=== PATIENT | female | born 1995 | race Caucasian/White ===

== ENCOUNTER 2019-12-27 13:40 | Emergency (ER) | payer OTHER, SELFPAY ==
--- NOTE | 2019-12-27 | US_ITS ---
EXAMINATION: US PELVIS CLINICAL INFORMATION: Pelvic pain. COMPARISON: Multiple prior ultrasounds. TECHNIQUE: Both transabdominal and endovaginal scanning was performed. FINDINGS: An anteverted uterus is present measuring 9.6 x 5.0 x 5.4 cm. The uterus appears to be septate with 2 separate endometrial cavities at least near the fundus. Endometrial thickness is normal at 1.5 mm. No uterine masses are seen. The right ovary measures 3.7 x 2.6 x 2.6 cm for a volume of 13 mL demonstrates peripheral follicles. Left ovary measures 3.8 x 1.9 x 2.7 cm for a volume of 10 mL and also demonstrates peripheral follicles. No free intraperitoneal fluid is present. IMPRESSION: No significant abnormality is seen. The uterus appears septate. Peripheral follicles are noted in the ovaries.
[2019-12-27 14:55] VITALS: BP 146/93; PULSE 83; RESP 12; TEMP 36.6; O2SAT 99; BMI 38.2
--- NOTE | 2019-12-27 15:10 | ED_ITS ---
HPI - Female Genitourinary General Chief complaint: Vaginal Bleeding Stated complaint: vaginal bleeding clots Time Seen by Provider: 12/27/19 15:10 Source: patient Mode of arrival: ambulatory Limitations: no limitations History of Present Illness HPI Narrative: noted a headache one week ago since then persistent and will not go away, yesterday had a heavy period with clots she is on nexplanon - denies bleeding issues, she is irregular due to the nexplanon but states she normally only bleeds brown colored blood elicited complaint: vaginal bleeding Pertinent past history: other (had implanon placed in october) Onset (ago): day(s) (yesterday) Location of symptoms: suprapubic Severity: severe Female Urogenital Radiation: Non-Radiating Quality of pain: cramping Consistency: constant Vaginal bleeding: heavy, clots and # pads per day (6 or 7 today) Exacerbating factors: none Relieving factors: none Associated symptoms: headaches (has had a persistent headache for 1 week worsening bilateral temporal and gradual in onset) Treatment prior to arrival: none Patient : No Related Data Allergies Allergy/AdvReac Type Severity Reaction Status Date / Time No Known Allergies Allergy Verified 12/27/19 13:42 Review of Systems Review of Systems: Constitutional : No Fever, No Chills ENT/Mouth : No sore throat, No Rhinorrhea Eyes: No Eye Pain, No Redness Cardiovascular : No Chest Pain, No SOB Respiratory : No Cough, No Sputum, No Wheezing Gastrointestinal : positive Nausea, No Vomiting, No Diarrhea, positive abdominal pain, Genitourinary : positive irregular bleeding, No Dysuria, No Urinary Frequency, positive pelvic pain Musculoskeletal : No Myalgias Skin : No rash Neuro : No Weakness, positiveHeadache Psych : No Anxiety/Panic, No Depression Heme/Lymph: No bruising, No Lymphadenopathy Endocrine : No Polyuria, No Polydipsia All other systems reviewed and are negative [facility] Past Medical History Medical History Asthma Bronchitis delivery delivered Headache Vertigo Social History Social History Smoking Status: Never smoker Use of substances other than those prescribed or required for medical reasons: No Advance Directives: No Advance Directives Information Provided: Yes Physical Exam Vital Signs and I&O and Narrative: Vital Signs and I&O: Vital Signs Temp 98 F 12/27/19 14:55 Pulse 83 12/27/19 14:55 Resp 12 12/27/19 14:55 BP 146/93 H 12/27/19 14:55 Pulse Ox 99 12/27/19 14:55 Intake & Output 12/26/19 12/27/19 12/27/19 18:59 06:59 18:59 Weight 104.355 kg Body Mass Index 38.2 Appearance: Alert. Oriented X3. No acute distress. Eyes: Pupils equal, round and reactive to light. ENT: Pharynx normal. Neck: Normal inspection. Neck supple. no meningeal signs CVS: Normal heart rate and rhythm. Pulses normal. Respiratory: No respiratory distress. Breath sounds normal. Abdomen: Soft and mild suprapubic tenderness. Skin: Skin warm and dry. Normal skin color. Normal skin turgor. Extremities: No lower extremity edema. No lower extremity edema. Neuro: Oriented X 3. No motor deficit. No sensory deficit. Course Course Course Narrative: signed out to Dr. Khan pending workup MDM - Female Genitourinary MDM Narrative Medical decision making narrative: patient with two complaints - gradual onset headache afebrile no meningeal signs gradual onset, not toxic, no fevers doubt SAH/infection, also c/o heavy menses which is unusual for her has implanon in - could be related to new device no prior bleeding issues, will need labs, US to r/o mass/fibroid/cyst, IVF and IV toradol for pain, dispo per results and findings Lab Data Result diagrams: 12/27/19 15:34 Labs: Lab Results 12/27/19 12/27/19 Range/Units 15:34 15:34 WBC 8.1 (4.8-10.8) X10*3/uL RBC 4.40 (4.20-5.50) X10*6/uL Hgb 13.1 (12.0-16.0) g/dl Hct 39.0 (37-47) % MCV 88.6 (80-98) fL MCH 29.8 (27.0-33.0) pg MCHC 33.6 (31.0-35.0) g/dl RDW 12.5 (11.0-16.0) % Plt Count 246 (160-400) X10*3/uL MPV 10.6 (9.4-12.3) fL Immature Gran % (Auto) 0.2 (0.0-0.4) % Neut % (Auto) 65.1 (45-73) % Lymph % (Auto) 29.6 (20-40) % Levy % (Auto) 4.0 (2-11) % Eos % (Auto) 0.7 (0-4) % Baso % (Auto) 0.4 (0-2) % Neut # (Auto) 5.2 (2.0-8.3) X10*3/uL Lymph # (Auto) 2.4 (1.2-4.9) X10*3/uL Levy # (Auto) 0.3 (0.1-1.2) X10*3/uL Eos # (Auto) 0.1 (0.0-0.4) X10*3/uL Baso # (Auto) 0.0 (0.0-0.2) X10*3/uL Abs Immat Gran (auto) 0.02 (0.00-0.03) X10*3/uL Absolute Nucleated RBC 0.000 (0.0-0.012) X10*3/uL Nucleated RBC % (auto) 0.0 (0.0-0.2) /100WBC PT 14.3 H (10.8-13.0) SEC INR 1.2 H (0.9-1.1) APTT 33.6 (24.1-38.0) SEC Discharge Plan Discharge Clinical Impression: Vaginal bleeding
[2019-12-27 15:39] LABS: MANUAL DIFF FLAG NO
[2019-12-27 15:48] LABS: Basophils Percent Auto 0.4 % (0-2); Eosinophils Absolute Auto 0.1 X10*3/uL (0.0-0.4); Eosinophils Percent Auto 0.7 % (0-4); Hemoglobin 13.1 g/dl (12.0-16.0); Imm Gran Abs Auto 0.02 X10*3/uL (0.00-0.03); Imm Gran Pct Auto 0.2 % (0.0-0.4); Lymphocytes Absolute Auto 2.4 X10*3/uL (1.2-4.9); Lymphocytes Percent Auto 29.6 % (20-40); Mean Corpuscular HGB Conc 33.6 g/dl (31.0-35.0); Mean Corpuscular Hemoglobin 29.8 pg (27.0-33.0); Mean Corpuscular Volume 88.6 fL (80-98); Mean Platelet Volume 10.6 fL (9.4-12.3); Monocytes Absolute Auto 0.3 X10*3/uL (0.1-1.2); Neutrophils Absolute Auto 5.2 X10*3/uL (2.0-8.3); Neutrophils Percent Auto 65.1 % (45-73); Platelet Count 246 X10*3/uL (160-400); Red Cell Distribution Width 12.5 % (11.0-16.0); White Blood Count 8.1 X10*3/uL (4.8-10.8)
[2019-12-27 15:50] LABS: INTERNATIONAL NORM RATIO 1.2 (0.9-1.1); Prothrombin Time 14.3 SEC (10.8-13.0)
[2019-12-27] MEDS: ondansetron HCL 4 MG/2 ML VIAL IVPUSH (15:52)
[2019-12-27] MEDS: Ketorolac Tromethamine 15 MG/ML VIAL 30 MG IV (15:52)
[2019-12-27] MEDS: 0.9 % Sodium Chloride 1,000 ML 999 ML IVCONT (15:52)
[2019-12-27 15:53] LABS: Partial Thromboplastin Time 33.6 SEC (24.1-38.0)
[2019-12-27 16:17] LABS: Alanine Aminotransferase 18 U/L (0-31); Albumin Level 4.5 g/dL (3.5-5.0); Alkaline Phosphatase 74 U/L (39-117); Anion Gap 12 (12-20); Aspartate Amino Transferase 17 U/L (5-31); Bilirubin Direct 0.2 mg/dL (0.0-0.5); Bilirubin Total 0.4 mg/dL (0.0-1.0); Blood Urea Nitrogen 11 mg/dL (9-16); Calcium 9.1 mg/dL (8.4-10.2); Carbon Dioxide 23 mmol/L (22-29); Chloride 108 mmol/L (96-108); Creatinine Clr Calc Pharmacy 125.7; Estimated Glomerular Filt Rate > 60; Glucose Random 81 mg/dL (60-115); Lipase 17 U/L (8-78); Sodium 139 mmol/L (135-145); Total Protein 7.2 g/dL (6.5-8.0)
[2019-12-27 16:22] LABS: HCG Quantitative < 2 mIU/mL
[2019-12-27 17:24] VITALS: BP 123/73; PULSE 73; RESP 18; TEMP 36.9; O2SAT 99
== END 2019-12-27 18:59 | disposition home or self-care (01) ==
PROVIDERS: Emergency Medicine; Emergency Provider Emergency Medicine; PCP Internal Medicine
DX: N93.9 Abnormal uterine and vaginal bleeding, unspecified (principal); R10.30 Lower abdominal pain, unspecified
CPT/HCPCS: 36415; 76830; 76856; 80048; 80076; 83690; 83735; 84702; 85025; 85610; 85730; 96361; 96374; 96375; 99284; J1885; J2405

== ENCOUNTER 2020-01-17 15:13 | Outpatient (REF) | payer OTHER, SELFPAY ==
[2020-01-18 02:27] LABS: CT PCR NOT DETECTED (Not Detect.); NG PCR NOT DETECTED (Not Detect.)
== END 2020-01-17 15:14 | disposition home or self-care (01) ==
LOC: HO.LAB 15:13
PROVIDERS: Visit Provider Advanced Practice Midwife
DX: Z01.419 Encounter for gynecological examination (general) (routine) without abnormal findings (principal); Z30.46 Encounter for surveillance of implantable subdermal contraceptive; Z11.3 Encounter for screening for infections with a predominantly sexual mode of transmission; E66.9 Obesity, unspecified; E28.2 Polycystic ovarian syndrome; L68.0 Hirsutism; L56.9 Acute skin change due to ultraviolet radiation, unspecified; L73.9 Follicular disorder, unspecified
CPT/HCPCS: 87491; 87591

== ENCOUNTER 2020-02-19 15:19 | Emergency (ER) | payer OTHER, SELFPAY ==
[2020-02-19 15:53] VITALS: BP 143/84; PULSE 71; RESP 16; TEMP 36.6; O2SAT 99; BMI 38.2
[2020-02-19] MEDS: Fluorescein Sodium STRIP 1 STRIP EYE-LEFT (17:04)
--- NOTE | 2020-02-19 17:04 | ED.EYEPROB ---
HPI - Eye Problem General Chief complaint: Eye Problems Stated complaint: glue in eye Time Seen by Provider: 02/19/20 16:30 Source: patient Mode of arrival: ambulatory Limitations: no limitations History of Present Illness HPI Narrative: States she was opening a small nail glue at home yesterday as she was opening a cap is slightly forceful and as she opened it a small amount splashed into the left eye. States she washed out and felt irritated. And afterwards felt like she got something in the left eye. She denies any visual problems no redness or swelling. MD chief complaint: eye pain and foreign body Onset (ago): day(s) Onset description: gradual Duration: intermittent Location: left eye Eye Symptoms: foreign body sensation Place: home Mechanism: none and chemical exposure Severity: mild If Pain, Quality: aching Associated symptoms: none Treatments Prior to Arrival: irrigated eye Related Data Home Medications Medication Instructions Recorded Confirmed albuterol sulfate 90 mcg/actuation 2 puff INHALATION Q6H PRN 01/02/20 aerosol inhaler etonogestrel 68 mg subdermal SUBDERMAL 01/02/20 implant metformin 500 mg tablet 500 mg PO DAILY 01/02/20 Previous Rx's Medication Instructions Recorded cholecalciferol (vitamin D3) 50 50 mcg PO DAILY #60 cap 01/17/20 mcg (2,000 unit) capsule erythromycin 0.5 inch OPHTHALMIC (EYE) TID 7 02/19/20 Days #3.5 g Allergies Allergy/AdvReac Type Severity Reaction Status Date / Time No Known Allergies Allergy Verified 01/17/20 16:01 Review of Systems Review of Systems: Constitutional: No Weight loss, No Fever, No Chills, No Night Sweats, No Fatigue, No Malaise ENT/Mouth: No Hearing loss, No Ear Pain, No Nasal Congestion, No Sinus Pain, No Hoarseness, No sore throat, No Rhinorrhea, No Swallowing Difficulty Eyes: No Swelling, No Redness, No Discharge, No Vision Changes Cardiovascular: No Chest Pain, No SOB, No Dyspnea on Exertion, No Orthopnea, No Edema, No Palpitations Respiratory: No Cough, No Sputum, No Wheezing, No Smoke Exposure, No Dyspnea Skin: No Skin Lesions, No rash Neuro: No Weakness, No Numbness, No Paresthesias, No Loss of Consciousness, No Dizziness, No Headache Heme/Lymph: No Bruising, No Bleeding,No Lymphadenopathy Endocrine: No Polyuria, No Polydipsia, No Temperature Intolerance Yes all other systems are reviewed and are negative [facility] Past Medical History Medical History (Updated 02/19/20 @ 17:14 by Yash Dunaway NP) Asthma Bronchitis delivery delivered Headache Obesity PCOS (polycystic ovarian syndrome) Vertigo Surgical History History of Family History Family History (Updated 01/02/20 @ 12:06 by BRET Casas) Father No problems noted. Mother Asthma Family/Other Asthma Maternal Grandmother Breast cancer Social History Social History (Updated 01/17/20 @ 16:02 by Gilda Garcia) Alcohol intake: never Smoking Status: Never smoker Advance Directives: No Advance Directives Information Provided: Yes Gender identity: female Physical Exam Vital Signs: Vital Signs: Last Vital Signs Temp 98 F 02/19/20 15:53 Pulse 71 02/19/20 15:53 Resp 16 02/19/20 15:53 BP 143/84 H 02/19/20 15:53 Pulse Ox 99 02/19/20 15:53 Body Mass Index 38.2 Reviewed Const: General: cooperative, healthy appearing, comfortable, no acute distress, well developed, alert and awake HENMT: Head: Yes normal to inspection Ears: hearing grossly normal bilaterally Eyes: General: appearance normal, both eyes and all related structures Visual Renae: normal visual renae by confrontation Eyelids: Yes eyelids normal Conjunctivae: conjunctivae normal Sclerae: sclerae normal Corneas: corneas normal EOM: EOMs intact bilaterally Direct Ophthalmoscopy: normal light reflex and No no papilledema Eyes/upper lids images: 1. PH 7 Intra-ocular pressure 18 Visual acuity equal bilaterally 20/30 No fluorescein uptake Bilateral lid exam within normal limits No erythema No injected conjunctiva Chest: Chest palpation & inspection: normal inspection of the chest and normal palpation of entire chest wall Resp: Effort & Inspection: normal respiratory effort, no audible wheezes, no cough and no respiratory distress Skin: General skin exam: no rashes or lesions noted, elasticity normal and turgor normal Wounds: no wounds Nails: normal Neuro: General: normal sensation to monofilament Extrem: General: No cyanosis Psych: Appearance: grossly normal and well kempt Discharge Plan Discharge Clinical Impression: Acute left eye pain Patient Disposition: Home, Self-Care Instructions: Eye Pain (ED) Prescriptions: New erythromycin 5 mg/gram (0.5 %) ointment 0.5 inch ophthalmic (eye) TID 7 Days Qty: 3.5 RF: 0 No Action cholecalciferol (vitamin D3) 50 mcg (2,000 unit) capsule 50 mcg PO DAILY Qty: 60 RF: 6 Referrals: Vitaly Okeefe [Physician] - 1 day
[2020-02-19] MEDS: Tetracaine HCl/PF 0.5% Oph Sol 4 ML DROPS 1 DROP EYE-LEFT (17:05)
== END 2020-02-19 17:58 | disposition home or self-care (01) ==
PROVIDERS: Emergency Provider Emergency Medicine Emergency Medical Services; PCP Internal Medicine
DX: H57.12 Ocular pain, left eye (principal); Z79.899 Other long term (current) drug therapy
CPT/HCPCS: 99283

== ENCOUNTER 2020-03-01 10:10 | Outpatient (REF) | payer OTHER, SELFPAY | END 2020-03-01 10:11 | disposition home or self-care (01) | LOC: HO.LAB 10:10 | PROVIDERS: Visit Provider Internal Medicine | DX: Z20.828 Contact with and (suspected) exposure to other viral communicable diseases (principal) | CPT/HCPCS: C9803; U0003 ==

== ENCOUNTER 2020-03-01 22:13 | Emergency (ER) | payer OTHER, SELFPAY ==
[2020-03-01 22:14] VITALS: BP 139/88; PULSE 82; RESP 16; TEMP 35.9; BMI 38.2
--- NOTE | 2020-03-01 22:27 | XR_ITS ---
EXAMINATION: XR CHEST CLINICAL INFORMATION: Question COVID Infection. COMPARISON: 03/21/2016 TECHNIQUE: AP portable upright view of the chest FINDINGS: Lungs are clear. No consolidation, pneumothorax, or pleural effusion. Cardiac and mediastinal contours are normal. Pulmonary vasculature is unremarkable. Osseous structures are unremarkable. XR/XR chest 1V IMPRESSION: No acute cardiopulmonary findings
[2020-03-01 22:34] VITALS: PULSE 76; RESP 16; O2SAT 99
--- NOTE | 2020-03-01 22:47 | ED.URI ---
HPI - URI/Sore Throat General Chief Complaint: Upper Respiratory Symptoms Stated Complaint: FLu like symptoms Time Seen by Provider: 03/01/20 22:27 Source: patient Mode of arrival: ambulatory Limitations: no limitations History of Present Illness HPI Narrative: Patient has history of asthma been feeling weak short of breath since yesterday tested for COVID today but result is pending no fever . Dry cough present no other family member is sick with COVID but she works in [employer] Related Data Home Medications Medication Instructions Recorded Confirmed albuterol sulfate 90 mcg/actuation 2 puff INHALATION Q6H PRN 01/02/20 aerosol inhaler etonogestrel 68 mg subdermal SUBDERMAL 01/02/20 implant metformin 500 mg tablet 500 mg PO DAILY 01/02/20 Previous Rx's Medication Instructions Recorded cholecalciferol (vitamin D3) 50 50 mcg PO DAILY #60 cap 01/17/20 mcg (2,000 unit) capsule erythromycin 0.5 inch OPHTHALMIC (EYE) TID 7 02/19/20 Days #3.5 g dexamethasone [Decadron] 6 mg PO DAILY #7 tab 03/01/20 Allergies Allergy/AdvReac Type Severity Reaction Status Date / Time No Known Allergies Allergy Verified 01/17/20 16:01 Review of Systems Review of Systems: REVIEW OF SYSTEMS: Pertinent positives and negatives are stated above in the history. GEN: no fevers, chills, fatigue HEENT: no nasal congestion, sore throat, ear pain NEURO: no headache, dizziness, focal weakness PULM: Cough/shortness of breath present CV: no chest pain, palpitations, LE edema ABD: no abdominal pain, nausea, vomiting, diarrhea : no dysuria, urgency, frequency SKIN: no rash ROS otherwise negative x 10 PMFSH Past Medical History Medical History Asthma Bronchitis delivery delivered Headache HTN (hypertension) Obesity PCOS (polycystic ovarian syndrome) Vertigo Surgical History History of Family History Family History Father No problems noted. Mother Asthma Family/Other Asthma Maternal Grandmother Breast cancer Social History Social History Alcohol intake: never Smoking Status: Never smoker Advance Directives: No Advance Directives Information Provided: No Gender identity: female Physical Exam Vital Signs: Vital Signs: Last Vital Signs Temp 96.6 F L 03/01/20 22:14 Pulse 76 03/01/20 22:34 Resp 16 03/01/20 22:34 BP 139/88 03/01/20 22:14 Pulse Ox 99 03/01/20 22:34 Body Mass Index 38.2 Appearance: Alert. Oriented X3. No acute distress. Saturating 99% at room air Eyes: Pupils equal, round and reactive to light. ENT: Pharynx normal. Neck: Normal inspection. Neck supple. CVS: Normal heart rate and rhythm. Pulses normal. Respiratory: No respiratory distress. Breath sounds normal. Abdomen: Soft and nontender. Skin: Skin warm and dry. Normal skin color. Normal skin turgor. Extremities: No lower extremity edema. Good range of movement Neuro: Oriented X 3. No motor deficit. No sensory deficit. Discharge Plan Discharge Clinical Impression: COVID-19 Patient Disposition: Home, Self-Care Instructions: COVID-19 (Coronavirus Disease 2019) (ED) Additional Instructions: The possibly of COVID-19 infection result will come in 2-3 days. keep social distancing. Take medication as advised for shortness of breath. Report to the ER if worsening of shortness of breath Prescriptions: New dexamethasone [Decadron] 6 mg tablet 6 mg PO DAILY Qty: 7 RF: 0 No Action erythromycin 5 mg/gram (0.5 %) ointment 0.5 inch ophthalmic (eye) TID 7 Days Qty: 3.5 RF: 0 cholecalciferol (vitamin D3) 50 mcg (2,000 unit) capsule 50 mcg PO DAILY Qty: 60 RF: 6 Stand Alone Forms: Work/School Release Interventions: ED Discharge Assessment Last Done: 03/01/20 23:54
[2020-03-01] MEDS: dexAMETHasone 6 MG TABLET PO (23:45)
--- NOTE | 2020-03-01 23:45 | PC.NURSE ---
pt medicated per mar, awaiting dc home.
== END 2020-03-01 23:54 | disposition home or self-care (01) ==
PROVIDERS: Emergency Provider Internal Medicine
DX: U07.1 COVID-19 (principal); R05 Cough; I10 Essential (primary) hypertension; Z79.899 Other long term (current) drug therapy
CPT/HCPCS: 71045; 99283; J8540

== ENCOUNTER 2020-03-11 16:52 | Outpatient (REF) | payer OTHER, SELFPAY | END 2020-03-11 16:53 | disposition home or self-care (01) | LOC: HO.LAB 16:52 | PROVIDERS: Visit Provider Internal Medicine | DX: Z20.828 Contact with and (suspected) exposure to other viral communicable diseases (principal) | CPT/HCPCS: C9803; U0003 ==

== ENCOUNTER 2020-03-14 00:29 | Emergency (ER) | payer OTHER, SELFPAY ==
[2020-03-14 00:33] VITALS: BP 148/92; PULSE 97; RESP 18; TEMP 36.8; O2SAT 96; BMI 39.1
--- NOTE | 2020-03-14 00:40 | ECG_ITS ---
Test Reason : TACHY Blood Pressure : / mmHG Vent. Rate : 101 BPM Atrial Rate : 101 BPM P-R Int : 136 ms QRS Dur : 090 ms QT Int : 352 ms P-R-T Axes : 037 043 008 degrees QTc Int : 456 ms Sinus tachycardia Otherwise normal ECG When compared to the previous EKG of No significant changes seen Referred By: Generic ED Physician Electronically Signed By:SERGO COLON MD
[2020-03-14 00:41] VITALS: PULSE 100
--- NOTE | 2020-03-14 00:53 | ED_ITS ---
HPI - Arrhythmia/Palpitations General Chief Complaint: Arrhythmia/Palpitations Stated Complaint: Tachycardia -Covid+ on 03/01 Time Seen by Provider: 03/14/20 00:50 Source: patient Mode of arrival: ambulatory Limitations: no limitations History of Present Illness HPI narrative: Patient with history of COVID infection detected on 03/01 feeling much better was given a course of Decadron. For last 4 days patient noticed palpitations heart rate increasing to up to 160 no chest pain feel little short of breath not eating or drinking that much. No weight loss no fever MD complaint: rapid heart beat Onset (ago): day(s) (4) Duration: intermittent Severity: moderate Context: occurred during rest Associated symptoms: denies other symptoms Related Data Home Medications Medication Instructions Recorded Confirmed albuterol sulfate 90 mcg/actuation 2 puff INHALATION Q6H PRN 01/02/20 aerosol inhaler etonogestrel 68 mg subdermal SUBDERMAL 01/02/20 implant metformin 500 mg tablet 500 mg PO DAILY 01/02/20 Previous Rx's Medication Instructions Recorded cholecalciferol (vitamin D3) 50 50 mcg PO DAILY #60 cap 01/17/20 mcg (2,000 unit) capsule erythromycin 0.5 inch OPHTHALMIC (EYE) TID 7 02/19/20 Days #3.5 g dexamethasone [Decadron] 6 mg PO DAILY #7 tab 03/01/20 alprazolam 0.25 mg tablet 0.25 mg PO BEDTIME PRN 7 Days #7 03/11/20 tab Allergies Allergy/AdvReac Type Severity Reaction Status Date / Time No Known Allergies Allergy Verified 01/17/20 16:01 Review of Systems Review of Systems: Constitutional : No Weight loss, No Fever, No Chills ENT/Mouth : No sore throat, No Rhinorrhea Eyes: No Eye Pain, No Swelling Cardiovascular : No Chest Pain, ++ palpitations Respiratory : No Cough, No Sputum, no shortness of breath Gastrointestinal : no Nausea, No Vomiting, No Diarrhea, No abdominal Pain, no black stools Genitourinary : No Dysuria, No Urinary Frequency Musculoskeletal : No joint pain, No Myalgias, No Joint Swelling Skin : No Skin Lesions, No rash Neuro : No Weakness, No Numbness, No Dizziness, No Headache Psych : No Anxiety/Panic, No Depression Heme/Lymph: No Bruising, No Lymphadenopathy Endocrine : No Polyuria, No Polydipsia All other systems reviewed and are negative [facility] Past Medical History Medical History Asthma Bronchitis delivery delivered Headache HTN (hypertension) Obesity PCOS (polycystic ovarian syndrome) Vertigo Surgical History History of Family History Family History Father No problems noted. Mother Asthma Family/Other Asthma Maternal Grandmother Breast cancer Social History Social History Alcohol intake: never Smoking Status: Never smoker Use of substances other than those prescribed or required for medical reasons: No Advance Directives: No Advance Directives Information Provided: No Gender identity: female Physical Exam Vital Signs: Vital Signs: Last Vital Signs Temp 98.3 F 03/14/20 00:33 Pulse 97 03/14/20 01:56 Resp 18 03/14/20 01:56 BP 148/92 H 03/14/20 00:33 Pulse Ox 97 03/14/20 01:56 Body Mass Index 39.1 Appearance: Alert. Oriented X3. No acute distress. Eyes: Pupils equal, round and reactive to light. ENT: Pharynx normal. Neck: Normal inspection. Neck supple. CVS: Normal heart rate and rhythm. Pulses normal. Respiratory: No respiratory distress. Breath sounds normal. Abdomen: Soft and nontender. Bowel sounds are present, no mass palpable, no CVA tenderness Skin: Skin warm and dry. Normal skin color. Normal skin turgor. Extremities: No lower extremity edema. No calf tenderness Neuro: Oriented X 3. No motor deficit. No sensory deficit. MDM - Arrhythmia/Palpitations MDM Narrative Medical decision making narrative: Patient status post COVID infection with history of anxiety prediabetic and borderline hypertension came with palpitations workup showed normal chest x-ray is normal elevated WBC secondary to recent steroid use, TSH was 0.3 which is slightly lower than normal limits patient does not have any findings of hyperthyroidism as such. Patient heart rate on classroom monitor was fluctuating between 80-130 is sinus rhythm. Urine shows ketones. Will give her 1 L of IV fluids advised to follow-up with PCP Differential Diagnosis Differential diagnosis: Likely palpitations, sinus tachycardia and artial fibrillation Lab Data Result diagrams: 03/14/20 01:19 03/14/20 01:20 Labs: Lab Results 03/14/20 03/14/20 03/14/20 Range/Units 01:19 01:19 01:20 WBC 18.6 H (4.8-10.8) X10*3/uL RBC 4.77 (4.20-5.50) X10*6/uL Hgb 14.2 (12.0-16.0) g/dl Hct 41.0 (37-47) % MCV 86.0 (80-98) fL MCH 29.8 (27.0-33.0) pg MCHC 34.6 (31.0-35.0) g/dl RDW 12.4 (11.0-16.0) % Plt Count 285 (160-400) X10*3/uL MPV 10.0 (9.4-12.3) fL Immature Gran % (Auto) 0.9 H (0.0-0.4) % Neut % (Auto) 85.0 H (45-73) % Lymph % (Auto) 8.8 L (20-40) % Cotton % (Auto) 5.2 (2-11) % Eos % (Auto) 0.0 (0-4) % Baso % (Auto) 0.1 (0-2) % Lymph # (Auto) 1.6 (1.2-4.9) X10*3/uL Cotton # (Auto) 1.0 (0.1-1.2) X10*3/uL Eos # (Auto) 0.0 (0.0-0.4) X10*3/uL Baso # (Auto) 0.0 (0.0-0.2) X10*3/uL Abs Immat Gran (auto) 0.16 H (0.00-0.03) X10*3/uL Absolute Neuts (auto) 15.9 H (2.0-8.3) X10*3/uL Absolute Nucleated RBC 0.000 (0.0-0.012) X10*3/uL Nucleated RBC % (auto) 0.0 (0.0-0.2) /100WBC D-Dimer < 200 NG/ML Hold Blue Top SEE NOTE Sodium 137 (135-145) mmol/L Potassium 4.0 (3.3-5.1) mmol/l Chloride 106 (96-108) mmol/L Carbon Dioxide 21 L (22-29) mmol/L Anion Gap 14 (12-20) BUN 10 (9-16) mg/dL Creatinine 0.79 (0.5-1.4) mg/dL Estim Creat Clear Calc 130.9 Estimated GFR > 60 Random Glucose 248 H D (60-115) mg/dL Calcium 8.6 (8.4-10.2) mg/dL TSH 0.31 L (0.32-4.0) uIU/mL Discharge Plan Discharge Clinical Impression: Heart palpitations Patient Disposition: Home, Self-Care Instructions: Heart Palpitations (ED) Additional Instructions: Drink plenty of fluids Follow with PCP for further evaluation. Take your anxiety medication. Report to the ER if increased shortness of breath/fever your palpitations are likely side effects of medications you are taking and should get better with time Prescriptions: No Action alprazolam 0.25 mg tablet 0.25 mg PO BEDTIME PRN (Reason: sleep) 7 Days Qty: 7 RF: 0 erythromycin 5 mg/gram (0.5 %) ointment 0.5 inch ophthalmic (eye) TID 7 Days Qty: 3.5 RF: 0 dexamethasone [Decadron] 6 mg tablet 6 mg PO DAILY Qty: 7 RF: 0 cholecalciferol (vitamin D3) 50 mcg (2,000 unit) capsule 50 mcg PO DAILY Qty: 60 RF: 6
--- NOTE | 2020-03-14 01:00 | XR_ITS ---
EXAMINATION: CHEST 1 VIEW CLINICAL INFORMATION: Covid positivity. COMPARISON: 03/01/2020. TECHNIQUE: An AP view of the chest is provided. FINDINGS: The cardiac silhouette is not enlarged. The mediastinal and hilar contours are unremarkable. There are neither pleural effusions nor pneumothoraces. There are no consolidations. The osseous structures are stable. XR/XR chest 1V IMPRESSION: No evidence for acute disease.
[2020-03-14 01:25] LABS: Basophils Percent Auto 0.1 % (0-2); Hemoglobin 14.2 g/dl (12.0-16.0); Imm Gran Abs Auto 0.16 X10*3/uL (0.00-0.03); Imm Gran Pct Auto 0.9 % (0.0-0.4); Lymphocytes Absolute Auto 1.6 X10*3/uL (1.2-4.9); Lymphocytes Percent Auto 8.8 % (20-40); MANUAL DIFF FLAG NO; Mean Corpuscular HGB Conc 34.6 g/dl (31.0-35.0); Mean Corpuscular Hemoglobin 29.8 pg (27.0-33.0); Monocytes Percent Auto 5.2 % (2-11); Neutrophils Absolute Auto 15.9 X10*3/uL (2.0-8.3); Platelet Count 285 X10*3/uL (160-400); Red Blood Count 4.77 X10*6/uL (4.20-5.50); Red Cell Distribution Width 12.4 % (11.0-16.0); White Blood Count 18.6 X10*3/uL (4.8-10.8)
[2020-03-14 01:36] LABS: D Dimer < 200 NG/ML
[2020-03-14 01:56] VITALS: PULSE 97; RESP 18; O2SAT 97
[2020-03-14 02:00] VITALS: BP 120/66; PULSE 90; RESP 18; O2SAT 100
[2020-03-14 02:07] LABS: Thyroid Stimulating Hormone 0.31 uIU/mL (0.32-4.0)
[2020-03-14 03:02] LABS: Anion Gap 14 (12-20); Blood Urea Nitrogen 10 mg/dL (9-16); Calcium 8.6 mg/dL (8.4-10.2); Carbon Dioxide 21 mmol/L (22-29); Chloride 106 mmol/L (96-108); Creatinine Clr Calc Pharmacy 130.9; Estimated Glomerular Filt Rate > 60; Glucose Random 248 mg/dL (60-115); Sodium 137 mmol/L (135-145)
[2020-03-14] MEDS: 0.9 % Sodium Chloride 1,000 ML 999 ML IVCONT (03:21)
[2020-03-14 03:31] LABS: Appearance Urine CLEAR; Color Urine YELLOW; Glucose Urine UA >=1000 MG/DL (NEG); Leukocyte Esterase Urine NEG (NEG); Nitrite Urine NEG (NEG); Specific Gravity - Urine 1.025 (1.005-1.025); Urine Blood NEG (NEG); Urine Ketones 5 MG/DL (NEG); Urine Protein NEG (NEG-TRACE)
[2020-03-14 03:38] LABS: WBC Urine 0 /HPF (0-4)
[2020-03-14 03:39] LABS: RBC Urine 0 /HPF (0); Squamous Epithelial Cell Urine 1+ /LPF
[2020-03-14 04:02] LABS: Free T4 (Free Thyroxine) 1.04 ng/dL (0.71-1.85)
== END 2020-03-14 04:47 | disposition home or self-care (01) ==
PROVIDERS: Emergency Provider Internal Medicine
DX: R00.2 Palpitations (principal); Z86.19 Personal history of other infectious and parasitic diseases; I10 Essential (primary) hypertension; J45.909 Unspecified asthma, uncomplicated
CPT/HCPCS: 36415; 71045; 80048; 81001; 84439; 84443; 85025; 85379; 93005; 96360; 99284; 99285

== ENCOUNTER 2020-03-18 12:23 | Outpatient (REF) | payer OTHER, SELFPAY | END 2020-03-18 12:24 | disposition home or self-care (01) | LOC: HO.LAB 12:23 | PROVIDERS: Visit Provider Internal Medicine | DX: Z20.828 Contact with and (suspected) exposure to other viral communicable diseases (principal) | CPT/HCPCS: C9803; U0003 ==

== ENCOUNTER → 2020-03-20 09:28 | Outpatient (REF) | payer OTHER, SELFPAY | LOC: HO.CARD 09:28 | PROVIDERS: PCP Internal Medicine; Visit Provider Internal Medicine Cardiovascular Disease | DX: R00.2 Palpitations (principal); R06.02 Shortness of breath; R73.03 Prediabetes; Z86.19 Personal history of other infectious and parasitic diseases | CPT/HCPCS: 93005; 93226; 99202 ==

== ENCOUNTER 2020-03-26 13:29 | Outpatient (REF) | payer OTHER, SELFPAY ==
[2020-03-26 14:21] LABS: Hematocrit 42.9 % (37-47); Hemoglobin 13.9 g/dl (12.0-16.0); Mean Corpuscular HGB Conc 32.4 g/dl (31.0-35.0); Mean Corpuscular Hemoglobin 28.8 pg (27.0-33.0); Mean Platelet Volume 10.7 fL (9.4-12.3); Platelet Count 270 X10*3/uL (160-400); Red Blood Count 4.82 X10*6/uL (4.20-5.50); Red Cell Distribution Width 12.5 % (11.0-16.0); White Blood Count 8.4 X10*3/uL (4.8-10.8)
[2020-03-26 14:43] LABS: Estimated Average Glucose 111 mg/dL; Hemoglobin A1c % 5.5 %
[2020-03-26 14:49] LABS: Anion Gap 15 (12-20); Blood Urea Nitrogen 12 mg/dL (9-16); Calcium 9.3 mg/dL (8.4-10.2); Carbon Dioxide 23 mmol/L (22-29); Chloride 107 mmol/L (96-108); Estimated Glomerular Filt Rate > 60; Glucose Random 96 mg/dL (60-115); Potassium 4.2 mmol/l (3.3-5.1); Sodium 141 mmol/L (135-145)
--- NOTE | 2020-03-26 15:48 | ECG_ITS ---
Hook-up date: 2020-03-26 16:28:00 Duration: 47:59:00 Test Indications: R00.2 - Palpitations Medications: 404458 QRS complexes 41 Ventricular ectopics which represent <1 % of total QRS comp. * Supraventricular ectopics which represent % of total QRS comp. * Paced QRS complexs which represent % of total QRS comp. VENTRICULAR ECTOPY 41 Isolated 0 Bigeminal Cycles 0 Couplets 0 Runs 0 Beats in Runs * Beats LONGEST at * BPM at :: -- * Beats FASTEST at * BPM at :: -- SUPRAVENTRICULAR ECTOPY * Isolated * Couplets * Runs * Beats in Runs * Beats LONGEST at * BPM at :: -- * Beats FASTEST at * BPM at :: -- HEART RATES 47 MIN at 09:08:21 2020-03-28 85 AVG 142 MAX at 10:44:24 2020-03-28 LONGEST RR 1.4240 secs at 07:58:17 2020-03-28 S-T LEVELS Channel 1 - 128 mm at 16:28:00 2020-03-26 - 128 mm at 16:28:00 2020-03-26 Channel 2 - 128 mm at 16:28:00 2020-03-26 - 128 mm at 16:28:00 2020-03-26 Channel 3 - 128 mm at 03:54:71 -- - 128 mm at 03:54:71 Basic rhythm Normal sinus rhythm No long pause or profound bradycardia Rare Premature ventricular complexes No diary submitted Referred By: Jose Gonzalez Overread By: JOSE GONZALEZ MD
[2020-03-27 04:13] LABS: Syphilis Screen Nonreactive (Nonreactive)
[2020-03-27 04:24] LABS: HIV AB/AG Nonreactive (Nonreactive); ~Hepatitis C Antibody Nonreactive (Nonreactive)
[2020-03-27 04:30] LABS: HBsAGNum1 0.23 S/CO (0.00-0.99); Hepatitis B Surface Antigen Negative (Negative)
[2020-03-30 21:38] LABS: Insulin Auto Antibody <0.4 U/mL (<0.4)
[2020-04-01 08:52] LABS: Glutamic acid decarboxylase Ab <5 IU/mL (<5)
== END 2020-03-26 13:30 | disposition home or self-care (01) ==
LOC: HO.LAB 13:29
PROVIDERS: Advanced Practice Midwife; PCP Internal Medicine; Visit Provider Internal Medicine
DX: R00.2 Palpitations (principal); E11.9 Type 2 diabetes mellitus without complications; Z11.3 Encounter for screening for infections with a predominantly sexual mode of transmission; Z11.4 Encounter for screening for human immunodeficiency virus [HIV]
CPT/HCPCS: 36415; 80048; 83036; 85027; 86337; 86341; 86780; 86803; 87340; 87389; 93226

== ENCOUNTER 2020-04-01 15:57 | Outpatient (REF) | payer OTHER, SELFPAY ==
[2020-04-01 17:04] LABS: Estimated Average Glucose 105 mg/dL; Hemoglobin A1c % 5.3 %
== END 2020-04-01 15:58 | disposition home or self-care (01) ==
LOC: HO.LAB 15:57
PROVIDERS: PCP Internal Medicine; Visit Provider Internal Medicine
DX: E11.9 Type 2 diabetes mellitus without complications (principal)
CPT/HCPCS: 36415; 83036

== ENCOUNTER → 2020-04-09 07:44 | Outpatient (BNVA) | payer OTHER, SELFPAY | PROVIDERS: Visit Provider Internal Medicine Endocrinology, Diabetes & Metabolism | DX: E28.2 Polycystic ovarian syndrome (principal); L68.0 Hirsutism; R79.89 Other specified abnormal findings of blood chemistry | CPT/HCPCS: 99202 ==

== ENCOUNTER → 2020-04-16 08:49 | Outpatient (REF) | payer OTHER, SELFPAY ==
--- NOTE | 2020-04-16 08:52 | CA_ITS ---
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 The visually estimated ejection fraction is between 60-65%. - There is mild tricuspid valve regurgitation. Findings Left Ventricle Normal left ventricular cavity size. There is normal left ventricular wall thickness. The left ventricular systolic function is normal. The visually estimated ejection fraction is between 60-65%. There is no evidence of regional wall motion abnormalities. Diastolic function is normal for age. Right Ventricle Normal right ventricular cavity size and systolic function. Atria The left atrium is normal in size. The right atrium is normal in size. Aortic Valve There is a normal trileaflet aortic valve. There is no aortic valve stenosis. There is no aortic valve regurgitation. Mitral Valve The mitral valve appears normal. There is no mitral valve regurgitation. There is no mitral valve stenosis. Pulmonic Valve The pulmonic valve was not well visualized. Tricuspid Valve Normal tricuspid valve structure. There is mild tricuspid valve regurgitation. The pulmonary artery systolic pressure is normal. Great Vessels The aortic annulus, sinuses of valsalva, asc aorta, and aortic arch are normal in size. Venous The inferior vena cava is normal in size and collapses greater than 50% with inspiration. Pericardium/Pleural There is no evidence of pericardial effusion. Prior Study Comparison No prior study available for comparison. Measurements 2D Linear Measurements IVSd: 1.04 0.6-0.9/0.6-1.0 cm LVIDd: 3.80 3.9-5.3/4.2-5.9 cm LVIDd Index: 1.81 2.4-3.2/2.2-3.1 cm/m2 LVIDs: 2.49 2.0-3.6 cm LVPWd: 0.97 0.7-1.1 cm Ao Root: 2.80 2.1-3.5 cm LA Diam: 3.10 2.7-3.8/3.0-4.0 cm LAIDs Index: 1.48 1.5-2.3 cm/m2 LV Mass: 146.80 67-162/88-224 g LV Mass Index: 69.90 43-95/49-115 g/m2 LVOT Diam: 2.00 3.0+(-)1.3 cm 2D Systolic Function EF 4C: 67.90 >55% EF 2C: 64.10 >55% EF BiP: 66.10 >55% Mitral Valve MV Pk E: 1.04 MV PK A: 0.55 MV Decel Time: 187.00 E/A: 1.90 E'Lateral: 17.90 E'Medial: 10.90 E/E' Med: 9.50 E/E' Lat: 5.80 PHT: 55.00 MVA PHT: 4.00 Decel [place]: 5.59 Aortic Valve AoV Pk Irwin: 1.26 AoV Pk Grad: 6.00 LVOT LVOT Pk Irwin: 0.94 LVOT Mn Irwin: 0.70 LVOT VTI: 0.21 LVOT Pk Grad: 4.00 LVOT Mn Grad: 2.00 LVOT Diam: 2.00 LVOT Area: 3.14 Diastolic Function MV Pk E: 1.04 MV Pk A: 0.55 E/A: 1.90 E'Medial: 10.90 E/E' Med: 9.50 E' Laterial: 17.90 E/E' Lat: 5.80 Tricuspid Valve TR Pk Irwin: 2.27 TR Pk Grad: 21.00 RA Press: 3.00 RVSP: 24.00 Great Vessels Aorta Ao Root-2D: 2.80 2.0-3.7 cm Ao Asc: 2.80 2.1-3.4 cm Ao Arch: 2.40 Updated in Other Vendor System with Status of Final Gibran Oviedo MD electronically signed on 04/16/2020 5:25:51 PM with status of Final
== END ==
LOC: HO.CARD 08:49
PROVIDERS: Visit Provider Internal Medicine Cardiovascular Disease
DX: R00.2 Palpitations (principal); R06.02 Shortness of breath; R73.03 Prediabetes
CPT/HCPCS: 93306

== ENCOUNTER → 2020-04-18 15:43 | Outpatient (BNVA) | payer OTHER, SELFPAY | PROVIDERS: PCP Internal Medicine; Visit Provider Internal Medicine Cardiovascular Disease ==

== ENCOUNTER → 2020-06-20 10:45 | Outpatient (BNVA) | payer OTHER, SELFPAY | PROVIDERS: PCP Internal Medicine; Visit Provider Advanced Practice Midwife | DX: Z30.46 Encounter for surveillance of implantable subdermal contraceptive (principal); E66.9 Obesity, unspecified; E28.2 Polycystic ovarian syndrome; L65.9 Nonscarring hair loss, unspecified; L68.0 Hirsutism; E11.9 Type 2 diabetes mellitus without complications | CPT/HCPCS: 99212 ==

== ENCOUNTER 2020-07-05 15:00 | Outpatient (REF) | payer OTHER, SELFPAY | END 2020-07-05 15:01 | disposition home or self-care (01) | LOC: HO.LAB 15:00 | PROVIDERS: PCP Internal Medicine; Visit Provider Internal Medicine Endocrinology, Diabetes & Metabolism | DX: Z13.89 Encounter for screening for other disorder (principal) ==

== ENCOUNTER 2020-07-06 07:28 | Outpatient (REF) | payer OTHER, SELFPAY ==
[2020-07-06 09:16] LABS: Anion Gap 14 (12-20); Blood Urea Nitrogen 11 mg/dL (9-16); Carbon Dioxide 23 mmol/L (22-29); Chloride 108 mmol/L (96-108); Estimated Glomerular Filt Rate > 60; Glucose Fasting 94 mg/dL (60-99); Potassium 3.7 mmol/L (3.3-5.1); Sodium 141 mmol/L (135-145)
[2020-07-06 09:26] LABS: Glucose Fasting 94 mg/dL (60-99)
[2020-07-06 09:43] LABS: Free T4 (Free Thyroxine) 0.84 ng/dL (0.71-1.85); Thyroid Stimulating Hormone 1.25 uIU/mL (0.32-4.0)
[2020-07-06 11:23] LABS: Glucose 2 Hour 140 mg/dL
[2020-07-07 03:26] LABS: Follicle Stimulating Hormone 2.3 mIU/mL; Prolactin 21.1 ng/mL; Triiodothyronine T3 Total 110 ng/dL (76-181)
[2020-07-08 15:02] LABS: Adrenocorticotropic Hormone 39 pg/mL (6-50)
[2020-07-08 18:36] LABS: DHEA Sulfate 412 mcg/dL (18-391); Sex Hormone Binding Globulin 19 nmol/L (17-124); Thyroglobulin Antibodies <1 IU/mL (< or = 1); Thyroid Peroxidase Antibodies <1 IU/mL (<9)
[2020-07-10 18:06] LABS: Testosterone, Total 77 ng/dL (2-45)
[2020-07-10 20:56] LABS: Estradiol Ultra Sensitive 65 pg/mL
[2020-07-10 22:57] LABS: Androstenedione 299 ng/dL
[2020-07-11 16:07] LABS: Thyroid Stimulating Immunoglob <89 % baseline (<140)
[2020-07-11 20:31] LABS: Thyrotropin Receptor Antibody <1.00 IU/L (<=2.00)
[2020-07-12 23:22] LABS: 11-Deoxycortisol, LC/MS 31 ng/dL
[2020-07-13 19:46] LABS: Estradiol Free 1.49 pg/mL; Estradiol, Ultrasensitive 61 pg/mL
== END 2020-07-06 07:29 | disposition home or self-care (01) ==
LOC: HO.LAB 07:28
PROVIDERS: PCP Internal Medicine; Visit Provider Internal Medicine Endocrinology, Diabetes & Metabolism
DX: E28.2 Polycystic ovarian syndrome (principal); R79.89 Other specified abnormal findings of blood chemistry
CPT/HCPCS: 36415; 80048; 82024; 82157; 82533; 82627; 82634; 82670; 82681; 83001; 83002; 83498; 83520; 84146; 84270; 84402; 84403; 84439; 84443; 84445; 84480; 86376; 86800

== ENCOUNTER 2020-07-27 07:36 | Outpatient (REF) | payer OTHER, SELFPAY ==
[2020-07-29 15:17] LABS: DHEA Sulfate 269 mcg/dL (18-391)
[2020-07-29 21:41] LABS: Adrenocorticotropic Hormone <5 pg/mL (6-50)
[2020-07-31 15:12] LABS: Dexamethasone 315 ng/dL
[2020-08-01 15:02] LABS: Androstenedione 187 ng/dL
[2020-08-05 15:57] LABS: Testosterone, Free 12.3 pg/mL (0.1-6.4); Testosterone, Total 60 ng/dL (2-45)
== END 2020-07-27 07:37 | disposition home or self-care (01) ==
LOC: HO.LAB 07:36
PROVIDERS: PCP Internal Medicine; Visit Provider Internal Medicine Endocrinology, Diabetes & Metabolism
DX: E28.2 Polycystic ovarian syndrome (principal)
CPT/HCPCS: 36415; 80299; 82024; 82157; 82533; 82627; 84402; 84403

== ENCOUNTER → 2020-08-06 13:55 | Outpatient (BNVA) | payer OTHER, SELFPAY | PROVIDERS: PCP Internal Medicine; Visit Provider Internal Medicine Endocrinology, Diabetes & Metabolism | DX: E28.2 Polycystic ovarian syndrome (principal); L68.0 Hirsutism; R79.89 Other specified abnormal findings of blood chemistry | CPT/HCPCS: 99212 ==

== ENCOUNTER 2020-08-23 14:46 | Outpatient (REF) | payer OTHER, SELFPAY ==
[2020-08-23 15:51] LABS: Alanine Aminotransferase 17 U/L (0-31); Albumin Level 4.5 g/dL (3.5-5.0); Alkaline Phosphatase 77 U/L (39-117); Anion Gap 13 (12-20); Aspartate Amino Transferase 17 U/L (5-31); Bilirubin Total 0.6 mg/dL (0.0-1.0); Blood Urea Nitrogen 10 mg/dL (9-16); Calcium 9.4 mg/dL (8.4-10.2); Carbon Dioxide 22 mmol/L (22-29); Chloride 109 mmol/L (96-108); Estimated Glomerular Filt Rate > 60; Glucose Fasting 79 mg/dL (60-99); Sodium 140 mmol/L (135-145); Total Protein 7.4 g/dL (6.5-8.0)
[2020-08-24 07:02] LABS: DHEA Sulfate 412 mcg/dL (18-391); Sex Hormone Binding Globulin 17 nmol/L (17-124)
[2020-08-28 20:06] LABS: Testosterone, Free 18.4 pg/mL (0.1-6.4); Testosterone, Total 85 ng/dL (2-45)
== END 2020-08-23 14:47 | disposition home or self-care (01) ==
LOC: HO.LAB 14:46
PROVIDERS: PCP Internal Medicine; Visit Provider Internal Medicine Endocrinology, Diabetes & Metabolism
DX: E28.2 Polycystic ovarian syndrome (principal)
CPT/HCPCS: 36415; 80053; 82627; 84270; 84402; 84403

== ENCOUNTER 2021-09-09 12:34 | Outpatient (REF) | payer OTHER, SELFPAY ==
[2021-09-10 03:14] LABS: CT PCR NOT DETECTED (Not Detect.); NG PCR NOT DETECTED (Not Detect.)
[2021-09-10 09:14] LABS: BV Int Neg Control Negative (Negative); BV Int Pos Control Positive (Positive)
== END 2021-09-09 12:35 | disposition home or self-care (01) ==
LOC: HO.LAB 12:34
PROVIDERS: Visit Provider Advanced Practice Midwife
DX: Z01.419 Encounter for gynecological examination (general) (routine) without abnormal findings (principal); L68.0 Hirsutism; E66.9 Obesity, unspecified; R73.03 Prediabetes; E28.2 Polycystic ovarian syndrome; N85.2 Hypertrophy of uterus
CPT/HCPCS: 87480; 87491; 87510; 87591; 87660; 88142

== ENCOUNTER 2021-10-22 13:16 | Outpatient (REF) | payer OTHER, SELFPAY ==
--- NOTE | ~2021-10-22 | US_ITS ---
EXAMINATION: US PELVIS CLINICAL INFORMATION: Question size of the uterus. COMPARISON: None TECHNIQUE: Ultrasound of the pelvis is performed using both transabdominal and transvaginal transducers along with Doppler. Transvaginal imaging is performed due to inadequate visualization transabdominally. FINDINGS: UTERUS: The uterus is anteverted and measures 9.5 x 5.2 x 7.0 cm. 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 The double wall endometrial thickness is 0.3 cm. The uterus is smooth in contour and has normal myometrial echogenicity. No visible fibroid. ADNEXA: Both ovaries are visualized. There is normal color flow to the adnexa. There is no ovarian torsion. There is no pelvic ascites or fluid collection. Right ovary measures 4.3 x 2.5 x 2.9 cm and volume 16.3 mL. There are small follicular cysts seen. Previously right ovary measured 2.7 x 2.6 x 2.6 cm and volume 13.0 mL. Left ovary measures 5.5 x 2.7 x 4.2 cm and volume 32.7 mL. There are small follicular cysts seen. Previously left ovary measured 3.8 x 1.9 x 2.7 cm. US/US pelvic and transvaginal IMPRESSION: The uterus appears septated as before. There are small bilateral ovarian follicular cysts. The uterus is unremarkable.
== END 2021-10-22 13:17 | disposition home or self-care (01) ==
LOC: HO.US 13:16
PROVIDERS: Visit Provider Advanced Practice Midwife
DX: Z30.46 Encounter for surveillance of implantable subdermal contraceptive (principal); E28.2 Polycystic ovarian syndrome; N85.2 Hypertrophy of uterus; L68.0 Hirsutism
CPT/HCPCS: 76830; 76856

== ENCOUNTER → 2021-10-29 11:20 | Outpatient (BNVA) | payer OTHER, SELFPAY | PROVIDERS: Visit Provider Advanced Practice Midwife | DX: E28.2 Polycystic ovarian syndrome (principal); E11.9 Type 2 diabetes mellitus without complications; E66.9 Obesity, unspecified; Z68.39 Body mass index [BMI] 39.0-39.9, adult; Q51.28 Other and unspecified doubling of uterus | CPT/HCPCS: 99212 ==

== ENCOUNTER 2022-09-15 10:48 | Outpatient (REF) | payer OTHER, SELFPAY ==
[2022-09-15 15:23] LABS: CT PCR NOT DETECTED (Not Detect.); NG PCR NOT DETECTED (Not Detect.)
[2022-09-16 09:45] LABS: BV Int Neg Control Negative (Negative); BV Int Pos Control Positive (Positive)
== END 2022-09-15 10:49 | disposition home or self-care (01) ==
LOC: HO.LNP 10:48
PROVIDERS: PCP Internal Medicine; Visit Provider Advanced Practice Midwife
DX: Z11.3 Encounter for screening for infections with a predominantly sexual mode of transmission (principal); Q51.28 Other and unspecified doubling of uterus; E28.2 Polycystic ovarian syndrome; L68.0 Hirsutism; L65.9 Nonscarring hair loss, unspecified
CPT/HCPCS: 0353U; 87480; 87510; 87660

== ENCOUNTER 2022-11-03 12:49 | Outpatient (AMB) | payer OTHER, SELFPAY ==
[2022-11-03 12:55] VITALS: BP 120/76; BMI 39.9
--- NOTE | 2022-11-03 12:55 | A.OFFVIS_ITS ---
Intake Vital Signs 11/03/22 12:55 Height 5 ft 3 in Weight 225 lb BMI 39.9 BP 120/76 Blood Pressure Location Lt brachial Position Sitting Intake Visit Reasons: Nexplanon Insertion Allergies No Known Allergies Allergy (Verified 11/03/22 12:56) Medication List - Last Reconciled 11/03/22 by Lynn Wolff CNM albuterol sulfate 90 mcg/actuation 2 puffs inhalation Q6H PRN blood sugar diagnostic twice a day blood-glucose meter As directed cholecalciferol (vitamin D3) 50 mcg PO DAILY cholecalciferol (vitamin D3) 25 mcg PO DAILY etonogestrel (Nexplanon) subdermal lancets (BD Ultra Fine Lancets) twice a day metformin 500 mg PO DAILY Is last menstrual period known: Yes Last menstrual period: 10/20/22 HPI Nexplanon Insertion HPI Details Is here for Nexplanon removal and insertion not just insertion. She has had 3 Nexplanon 1 after another for the last 9 years and this 1 is about to and she does not want to take a chance on getting . She feels she is doing fairly good with her diabetes but with losing weight is very hard she has been trying very hard and watching her blood sugars and is having an appointment with her primary this week and is looking forward to a discussion about whether not 1 of the 2 available weight loss medications might help her improve her situation a little bit. [facility] Medical History Abnormal TSH Asthma Bronchitis delivery delivered Headache HTN (hypertension) Obesity PCOS (polycystic ovarian syndrome) Pre-diabetes Vertigo Surgical History History of Family History Father No problems noted. Mother Asthma Family/Other Asthma Maternal Grandmother Breast cancer Social History Alcohol intake: never Gender identity: Female Female Reproductive History Menstrual Age of Menarche: 8 Date of last menstrual period: 10/20/22 Physical Exam Vital Signs: Last Vital Signs BP 120/76 11/03/22 12:55 BMI result Body Mass Index 39.9 Office Procedures Contraception Insert/Removal Details Details: Nexplanon Removal/Reinsertion Insertion Procedure The patient was placed in a supine position with her non dominant hand resting under her head. The insertion site was located: 8-10cm from the medial epicondyle notch of the humerus, posterior to the sulcus, The area of the previous implant was identified and the distal tip located. This area was cleansed with an alcohol prep and 2.5 ml of 2% Lidocaine on a 25 gauge needle and syringe was utilized for adequate anesthesia to the insertion site. After ascertaining adequate anesthesia, the area was prepped with Betadine solution. The skin over the distal tip was incised with a #11 blade scalpel and the capsule was located and entered freeing the implant from the canal. The implant was removed with a gentle tug using a mosquito clamp and removed intact. The Nexplanon device was removed from the manufacturers package and the implant was noted in the trocar canal. The trocar was inserted at a 30 degree angle and then lowered parallel to the skin for insertion into the subcutaneous space with counter traction. Direct pressure was applied to the insertion site for hemostasis, minimal bleeding was observed. Steri strips, Tegaderm covering, gauze pads, and Antonia wrap dressing were secured with paper tape. The implant was palpable underneath the skin by myself and the patient. The patient tolerated the procedure well and left the office in good condition. 01073 - Insertion and Removal Office Meds Nexplanon Performing Provider: Lynn Wolff CNM Administered by: BRET Limon on 11/03/22 13:51 Dose Route Admin Location Lot Number Expiration Date [facility] Marketing Performance Analyst 1 implant subdermal [facility] [id number] 08/12/24 65702-289-48 [employer] Results AMB Test Urine AMB Test Urine Negative Last Edit by Symone Gonzales CMA on 13:12 Results Reviewed Results Reviewed: Laboratory Last Values Tst Clinic Negative 11/03/22 13:10 Name:?Jose BullJoselyn Age/Sex: 26/F Attending: Lynn Wolff CNM : 1995 Submitted by: Lynn Wolff CNM Copies to: MR #: [id number] ? Status: DEP REF Collected: 09/09/21 Location: .LAB Received: 09/10/21 Interpretation Satisfactory for evaluation. No endocervical cells seen. Negative for intraepithelial lesion or malignancy. Clinical Information LMP: Unknown Previous PAP test: Unknown, WNL Material Received ThinPrep-Cervical Electronically Signed By: RAFAEL Webb (ASCP) ? 09/23/21 1316 Assessment & Plan Assessment & Plan (1) Encounter for surveillance of Nexplanon subdermal contraceptive: Code(s): Z30.46 - Encounter for surveillance of implantable subdermal contraceptive (2) Encounter for removal and reinsertion of Nexplanon: Code(s): Z30.46 - Encounter for surveillance of implantable subdermal contraceptive (3) PCOS (polycystic ovarian syndrome): Code(s): E28.2 - Polycystic ovarian syndrome Plan The procedure went smoothly. Pressure was applied but there was still some bleeding patient is instructed to leave the pressure dressing on for 2-3 hours and leave the Tegaderm on for 3 days. If she feels like it has coming out or signs of infection or excessive bleeding she should call and or seek care.. 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 Follow-up here p.r.n. in for annuals. Orders: Orders AMB Nexplanon/Implanon Insertion - Patient Supply Today Z30.46 - Encounter for surveillance of implantable subdermal contraceptive AMB HCG Urine Test Today Z32.02 - Encounter for test, result negative Coding Level of Care Code Est Pt Level 3 (88274) Diagnoses Encounter for surveillance of Nexplanon subdermal contraceptive Z30.46 Encounter for removal and reinsertion of Nexplanon Z30.46 PCOS (polycystic ovarian syndrome) E28.2 CPT Codes Details - Contraception: 28213 - Insertion and Removal ([id number])
== END 2022-11-03 13:59 | disposition home or self-care (01) ==
LOC: HO.HWS 12:49
PROVIDERS: PCP Internal Medicine; Visit Provider Advanced Practice Midwife
DX: Z30.46 Encounter for surveillance of implantable subdermal contraceptive (principal); E28.2 Polycystic ovarian syndrome; Z32.02 Encounter for pregnancy test, result negative
CPT/HCPCS: 11983

== ENCOUNTER → 2022-11-03 12:49 | Outpatient (BNVA) | payer OTHER, SELFPAY | PROVIDERS: PCP Internal Medicine; Visit Provider Advanced Practice Midwife | DX: Z30.46 Encounter for surveillance of implantable subdermal contraceptive (principal) | CPT/HCPCS: 11983; 81025; J7307 ==

== ENCOUNTER 2022-11-05 14:37 | Outpatient (AMB) | payer OTHER, SELFPAY ==
--- NOTE | 2022-11-05 14:44 | MHC.PC.OV ---
Vital Signs 11/05/22 14:46 Height 5 ft 3 in Weight 222 lb 6 oz BMI 39.4 BP 110/62 Blood Pressure Location Rt brachial Position Sitting Pulse 60 Pulse Source Pulse Oximeter Pulse Oximetry (%) 98 Oxygen Delivery Method Room Air Intake Visit Reasons: Discuss Blood Sugar Injections Intake Note: Patient is here to follow up on DM. 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 Gyn: Not Required per policy Accompanied by: Self / Same As Patient Allergies No Known Allergies Allergy (Verified 11/05/22 15:35) Medication List - Last Reconciled 11/05/22 by Faraz Alaniz MD albuterol sulfate 90 mcg/actuation 2 puffs inhalation Q6H PRN blood sugar diagnostic twice a day blood-glucose meter As directed cholecalciferol (vitamin D3) 50 mcg PO DAILY etonogestrel (Nexplanon) subdermal lancets (FreeStyle Lancets) once a day semaglutide (Ozempic) 0.25 mg (0.368 mL) subcut QWEEK Tobacco use date assessed: 11/05/22 Dental Screening Dental Screen Date: 11/05/22 Did you have a dental visit in the last 12 months?: No Did you have a dental problem in the last 6 months where you did not have access to dental care?: No Was dental information given to patient?: Patient has dentist HPI Discuss Blood Sugar Injections HPI Details 27-year-old female presents to the office to discuss her chronic medical conditions. Patient is reconnecting with this office after 2 years. She believes she has had diabetes in the past. She has a 9-year-old kid, however during did not use insulin. She has not checked her sugars not as she no her last A1c. She would like to try the new weight loss drug. She gives history of PCOS. [facility] Medical History Abnormal TSH Asthma Bronchitis delivery delivered Headache HTN (hypertension) Obesity PCOS (polycystic ovarian syndrome) Pre-diabetes Vertigo Surgical History History of Family History Father No problems noted. 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 1. Little interest or pleasure in doing things: not at all 2. Feeling down, depressed, or hopeless: not at all 3. Trouble falling or staying asleep, or sleeping too much: not at all 4. Feeling tired or having little energy: not at all 5. Poor appetite or overeating: not at all 6. Feeling bad about yourself - or that you are a failure or have let yourself or your family down: not at all 7. Trouble concentrating on things, such as reading the newspaper or watching television: not at all 8. Moving or speaking so slowly that other people could have noticed. Or the opposite - being so fidgety or restless that you have been moving around a lot more than usual: not at all 9. Thoughts that you would be better off or of hurting yourself in some way: not at all Total score: 0 Depression Screening Interpretation: Negative Source: Developed by Drs. Alessio Gómez, Lizzeth Gao, Deion Adhikari and colleagues, with an educational jyothi from [employer]. Thrive Questionnaire Date Thrive assessed: 11/05/22 I am a: Patient What is your living situation today?: I have a steady place to live Within the past 12 months, did the food you bought not last and you didn't have the money to get more?: Never true Within the past 12 months, did you worry whether your food would run out before you got money to buy more?: Never true Do you have trouble paying for medicines?: No Do you have trouble getting transportation to medical appointments?: No Do you have trouble paying your heating and electricity bill?: No Do you have trouble taking care of your child, family member or friend?: No Do you have trouble with day-to-day activities such as bathing, preparing meals, shopping, managing finances, etc.?: No Are you currently unemployed and looking for a job?: No Are you interested in more education?: No Currently or been in a relationship where the following occur: no concerns reported AUDIT C Alcohol Use Questionnaire (AUDIT-C) 1. How often do you have a drink containing alcohol?: Never Total Score: 0 RAY-7 AMB Questionnaire RAY-7 Date RAY - 7 assessed: 11/05/22 Feeling nervous, anxious, or on edge: 3 = Nearly every day Not being able to stop or control worryin = Not at all Worrying too much about different things: 0 = Not at all Trouble relaxin = Not at all Being so restless that it is hard to sit still: 0 = Not at all Becoming easily annoyed or irritable: 0 = Not at all Feeling afraid as if something awful might happen: 0 = Not at all Total RAY-7 score (0-4 normal; 5-9 mild; 10-14 moderate; 15-21 severe): 3 Source: Developed by Drs. Alessio Gómez, Lizzeth Gao, Deion Adhikari and colleagues, with an educational jyothi from [employer]. Physical exam (Primary Care) Vital Signs: Last Vital Signs Pulse 60 11/05/22 14:46 BP 110/62 11/05/22 14:46 Pulse Ox 98 11/05/22 14:46 Oxygen Delivery Method Room Air 11/05/22 14:46 Care Plan Goal for BP management: Blood pressure is in range. Continue current medications. BMI result Body Mass Index 39.4 BMI Assessment/Plan discussion: High (1 lb per week weight loss suggested.) BMI High, discussed plan: lifestyle, weight reduction and dietary Tobacco/Smoking Status: Tobacco use Status Tobacco use date assessed 11/05/22 11/05/22 14:46 Patient Tobacco Use Status Never used Tobacco 11/05/22 14:46 Tobacco use type 11/05/22 14:46 e-Cigarette/Vaping Use Never Used 11/05/22 14:46 PHQ-9: PHQ-9 Score PHQ-9: Total score 0 11/05/22 14:46 Depression Screening Interpretation: Negative Thrive Assessment: Date of Thrive Assessment Date Thrive assessed 11/05/22 11/05/22 14:46 Currently or been in a relationship where the following occur: no concerns reported Const General: cooperative, healthy appearing and comfortable HENMT Head: Yes normal to inspection and Yes atraumatic Eyes General: appearance normal, both eyes and all related structures Neck Neck: Yes normal visual inspection and Yes full ROM Chest Chest palpation & inspection: normal inspection of the chest and crepitus Resp Effort & Inspection: normal respiratory effort Auscultation: clear to auscultation bilaterally Cardio Jugular venous distension: no JVD Palpation: normal PMI Rate: regular rate Heart sounds: S1 normal heart sound present and S2 normal heart sound present GI Palpation (GI): Soft to palpation and No hepatosplenomegaly present Extrem General: Yes normal to inspection and Yes full ROM Results AMB Hemoglobin A1c AMB Hemoglobin A1c 5.1 % Last Edit by BRET Coffman on 11/05/22 15:04 Results Reviewed Results Reviewed: Laboratory Last Values Hgb A1c (Clinic) 5.1 % (4.0-6.0) 11/05/22 14:48 Assessment and Plan Assessment & Plan (1) Obesity (BMI 35.0-39.9 without comorbidity): Code(s): E66.9 - Obesity, unspecified Plan: ozempic called in. 20 minutes spent discussing the importance of diet and exercise. Blood work has been ordered. Orders: Orders AMB Hemoglobin A1c Today E11.9 - Type 2 diabetes mellitus without complications Medications: New semaglutide (Ozempic) for 4 weeks 0.25 mg (0.368 mL) subcut QWEEK 3 mL 0RF Refilled blood sugar diagnostic twice a day 100 ea 1RF blood-glucose meter As directed 1 ea 0RF cholecalciferol (vitamin D3) 1 capsule daily 50 mcg PO DAILY 60 caps 6RF Coding Level of Care Code Est Pt Level 4 (50307) Diagnoses Obesity (BMI 35.0-39.9 without comorbidity) E66.9
[2022-11-05 14:46] VITALS: BP 110/62; PULSE 60; O2SAT 98; BMI 39.4
== END 2022-11-05 15:24 | disposition home or self-care (01) ==
PROVIDERS: PCP Internal Medicine; Visit Provider Internal Medicine
DX: E11.9 Type 2 diabetes mellitus without complications (principal); E66.9 Obesity, unspecified; Z68.39 Body mass index [BMI] 39.0-39.9, adult
CPT/HCPCS: 83036; 99214

== ENCOUNTER 2023-02-18 13:34 | Outpatient (AMB) | payer OTHER, SELFPAY ==
[2023-02-18 13:40] VITALS: BP 120/78; PULSE 75; O2SAT 98; BMI 40.4
--- NOTE | 2023-02-18 13:40 | A.OFFPC_ITS ---
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 Patient was disappointed that her weight loss medications were denied by insurance. She now informs me that she was worked up for insulin resistance at [facility]. She would like to go back on the metformin. Patient also reports that she feels overwhelmed. She takes care of a child with disability and is worried about him. 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 Not exercising or following any particular diet. [facility] Medical History (Updated 02/18/23 @ 14:41 by Faraz Alaniz MD) Generalized anxiety disorder Metabolic syndrome Abnormal TSH Pre-diabetes HTN (hypertension) PCOS (polycystic ovarian syndrome) Obesity Headache Vertigo Bronchitis delivery delivered Asthma Surgical History History of Family History Father No problems noted. 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 1. Little interest or pleasure in doing things: not at all 2. Feeling down, depressed, or hopeless: not at all 3. Trouble falling or staying asleep, or sleeping too much: nearly every day 4. Feeling tired or having little energy: several days 5. Poor appetite or overeating: nearly every day 6. Feeling bad about yourself - or that you are a failure or have let yourself or your family down: not at all 7. Trouble concentrating on things, such as reading the newspaper or watching television: several days 8. Moving or speaking so slowly that other people could have noticed. Or the opposite - being so fidgety or restless that you have been moving around a lot more than usual: not at all 9. Thoughts that you would be better off or of hurting yourself in some way: not at all Total score: 8 Depression Screening Interpretation: Positive (Counselor suggested.) Depression Screening Done: Yes Source: Developed by Drs. Alessio Gómez, Deion Rosario and colleagues, with an educational jyothi from [employer]. Thrive Questionnaire Date Thrive assessed: 11/05/22 RAY-7 AMB Questionnaire RAY-7 Date RAY - 7 assessed: 02/18/23 Feeling nervous, anxious, or on edge: 3 = Nearly every day Not being able to stop or control worryin = Several days Worrying too much about different things: 3 = Nearly every day Trouble relaxin = Several days Being so restless that it is hard to sit still: 0 = Not at all Becoming easily annoyed or irritable: 1 = Several days Feeling afraid as if something awful might happen: 1 = Several days Total RAY-7 score (0-4 normal; 5-9 mild; 10-14 moderate; 15-21 severe): 10 Source: Developed by Drs. Alessio Gómez, Deion Rosario and colleagues, with an educational jyothi from [employer]. Physical exam (Primary Care) Vital Signs: Last Vital Signs Pulse 75 02/18/23 13:40 BP 120/78 02/18/23 13:40 Pulse Ox 98 02/18/23 13:40 Oxygen Delivery Method Room Air 02/18/23 13:40 Care Plan Goal for BP management: Blood pressure is in range. BMI result Body Mass Index 40.4 BMI Assessment/Plan discussion: High (1 lb per week weight loss suggested.) BMI High, discussed plan: lifestyle, weight reduction, dietary and physical activity Tobacco/Smoking Status: Tobacco use Status Tobacco use date assessed 11/05/22 02/18/23 13:41 Patient Tobacco Use Status Never used Tobacco 02/18/23 13:41 Tobacco use type 11/05/22 15:25 e-Cigarette/Vaping Use Never Used 02/18/23 13:41 PHQ-9: PHQ-9 Score PHQ-9: Total score 8 02/18/23 13:49 Depression Screening Interpretation: Positive (Counselor suggested.) Thrive Assessment: Date of Thrive Assessment Date Thrive assessed 11/05/22 02/18/23 13:41 Const General: cooperative and healthy appearing Nutritional Appearance: well nourished Orientation/consciousness: patient oriented x3 Limitations: no limitations HENMT Head: Yes normal to inspection Eyes General: appearance normal, both eyes and all related structures Neck Neck: Yes normal visual inspection Chest Chest palpation & inspection: normal palpation of entire chest wall Resp Effort & Inspection: normal respiratory effort Neuro General: patient oriented x3 Office Procedures Flu Questionnaire Does the patient have a severe egg allergy?: No Results AMB Hemoglobin A1c AMB Hemoglobin A1c 5.5 % Last Edit by BRET He on 02/18/23 13:5 0 Immunizations flu vacc [id number] 6mos up(PF) 60 mcg(15 mcgx4)/0.5 mL IM syringe Performing Provider: Faraz Alaniz MD [facility] Documented (not given) by: BRET He on 02/18/23 13:50 Reason Not Given: Patient Refused Results Reviewed Results Reviewed: Laboratory Last Values Hgb A1c (Clinic) 5.5 % (4.0-6.0) 02/18/23 13:49 Assessment and Plan Assessment & Plan (1) Metabolic syndrome: Code(s): E88.810 - Metabolic syndrome Plan: Metformin has been started. 500 mg twice a day. (2) Obesity (BMI 30-39.9): Code(s): E66.9 - Obesity, unspecified Plan: Importance of diet and exercise explained to the patient. (3) Generalized anxiety disorder: Code(s): F41.1 - Generalized anxiety disorder Plan: A request for the patient to speak to a counselor has been made. Orders: Orders AMB Hemoglobin A1c Today E11.9 - Type 2 diabetes mellitus without complications Influenza [id number] Immunization Today Z23 - Encounter for immunization Coding Level of Care Code Est Pt Level 4 (85767) Diagnoses Metabolic syndrome E88.810 Obesity (BMI 30-39.9) E66.9 Generalized anxiety disorder F41.1
== END 2023-02-18 14:36 | disposition home or self-care (01) ==
PROVIDERS: PCP Internal Medicine; Visit Provider Internal Medicine
DX: E11.9 Type 2 diabetes mellitus without complications (principal); Z68.41 Body mass index [BMI] 40.0-44.9, adult; E88.810 Metabolic syndrome; E66.9 Obesity, unspecified; F41.1 Generalized anxiety disorder
CPT/HCPCS: 83036; 99214

== ENCOUNTER → 2023-03-23 12:46 | Outpatient (BNVA) | payer OTHER, SELFPAY | PROVIDERS: PCP Internal Medicine; Visit Provider Physician Assistant Surgical ==

== ENCOUNTER 2023-04-12 08:51 | Outpatient (AMB) | payer OTHER, SELFPAY ==
--- NOTE | 2023-04-12 14:03 | A.OFFVIS_ITS ---
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 Allergies metfomin Adverse Reaction (Severe, Uncoded 02/18/23 13:44) Diarrhea Medication List - Last Reconciled 04/12/23 by Michael Whaley MD albuterol sulfate 90 mcg/actuation 2 puffs inhalation Q6H PRN blood sugar diagnostic twice a day blood-glucose meter As directed etonogestrel (Nexplanon) subdermal lancets (FreeStyle Lancets) test once daily HPI 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 41.3 HPI Details Start time: 1.57pm, End time: 2.38pm ?I spent 36 minutes speaking with the patient on the phone plus an additional 5 minutes reviewing and updating records for a total of 41 minutes HPI Comments History of Present Illness Details Previous weight loss efforts: self diets, Keto diet, OTC pills Wakes up: 8am (working days), 10am (non-working days), sleeps: 2am Breakfast: skips Lunch: 3pm (fast food) Dinner:6pm (rice, beans and chicken) Snacks: several snacks after dinner with sweets and more fast food Exercise: none, has a home elliptical, stationary bike or treadmill Fluids: Coffee: none, tea: 1/wk, soda: Pepsi daily, juice: none, ETOH: none PFSH Medical History (Updated 04/12/23 @ 14:07 by Michael Whaley MD) Morbid obesity Generalized anxiety disorder Metabolic syndrome Abnormal TSH Pre-diabetes HTN (hypertension) PCOS (polycystic ovarian syndrome) Obesity Headache Vertigo Bronchitis delivery delivered Asthma Surgical History History of Family History Father No problems noted. 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 Plan for lap sleeve gastrectomy. If diaphragmatic or ventral hernias are present at time of surgery, these will be repaired laparoscopically as well. 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 I emphasized the importance of close follow-up, adherence to instructions and good communication. 2. Nutritional counseling. A) WORKING DAYS: Start with 2 Isopure INFUSIONS protein (buy at [employer]) shakes (HALF scoop in 8oz water) at 9am-11am and 12pm-2pm, 1 protein bar (Zone Perfect protein bars, buy at [employer], ?[employer], [facility], or [employer]) at 3pm-5pm, dinner at 6pm (8 forks of protein and 8 forks of salad/vegetables) AND TWO more protein bars after dinner at 8pm-10pm and 11pm-1am. So you do 2 protein shakes, 3 protein bars and one meal per day. B) NON-WORKING DAYS: Start with 2 Isopure INFUSIONS protein (buy at [employer]) shakes (HALF scoop in 8oz water) at 11am-1pm and 2pm-4pm, dinner at 5pm (8 forks of protein and 8 forks of salad/vegetables) AND TWO Zone protein bars after dinner at 7pm-9pm and 10pm-12am. So you do 2 protein shakes, 2 protein bars and one meal per day. Meal to include lean meat (beef, fish, pork, turkey, chicken), or prydeinig yogurt, or egg whites, or beans with a salad with olive oil and fruits (berries, pears, apples, kiwi). Avoid salt, breads, potatoes, rice, pasta, desserts. 3. Each shake would be drunk slowly, like coffee in a period of 2 hours. 4. Cut each bar in 4 pieces and eat each piece in 30min ?to make each bar last 2 hours. 5. I emphasized the importance of measuring accurately the food portion and measure it when serving the food in plate 6. The meal portions include 8 full-size forks of meat and 8 full-size forks of salad. You always eat the meat portion but you can replace up to 4 forks for salad/vegetables with rice, potatoes or pasta, or a fruit ?if you like. The less you do it the better weight loss will be. 7. One full-size fork is what it can be scooped on the fork without falling aside and not what can be bit with the fork. Use regular forks like those you find in a typical restaurant. 8.? Please send me weight measurements as soon as possible and then once a week. Always include your diet and exercise plan. Alternatively come weekly at the office for weight checks and send me the measurements. 9. Start treadmill with an incline of 2.0 and speed of 3.0. Increase incline by 1 every 3 min to a max incline of 8.0, stay 3min at 8.0 and then return to 2.0 and repeat same steps until calorie goal is met. Goal is to burn 2000 calories per week on exercise, which means either 300 calories daily, or 400 calories 5 days per week, or 500 calories 4 days per week, or 650 calories 3 days per week. Start also weight exercises with 20-30lbs for chest/shoulders/abdomen and 40- 50lbs for thighs doing 2 sets of 15 repetitions each. 10. Alternatively start stationary bike or the elliptical at a resistance level of 4.0 Increase level by 1.0 every 3 min to a max level of 10.0. Stay at this level for 3 min and then return to level 4.0 and repeat same steps until 300 calories are burned. Goal is to burn 2000 calories per week on exercise 11.?It is important of avoiding and for at least 18 months postoperatively and has been discussed at the infosession. 12. Goal is to lose at least 1.5-2lbs per week 13. Goal to lose 10% of your weight before surgery, which is about 23lbs. Ultimate weight goal: 210lbs before surgery 14. Please follow the diet plan exactly without any change. If you don't like something about the plan or you feel hungry you need to communicate with me so I can help you revise the plan. You should not change the plan yourself. Orders: Orders Insulin Today E11.9 - Type 2 diabetes mellitus without complications, E28.2 - Polycystic ovarian syndrome, E66.01 - Morbid (severe) obesity due to excess calories, E88.810 - Metabolic syndrome, J45.909 - Unspecified asthma, uncomplicated, R79.89 - Other specified abnormal findings of blood chemistry H Pylori Breath Test Today E11.9 - Type 2 diabetes mellitus without c omplications, E28.2 - Polycystic ovarian syndrome, E66.01 - Morbid (severe) obesity due to excess calories, E88.810 - Metabolic syndrome, J45.909 - Unspecified asthma, uncomplicated, R79.89 - Other specified abnormal findings of blood chemistry Complete Blood Count Auto Diff Today E11.9 - Type 2 diabetes mellitus without complications, E28.2 - Polycystic ovarian syndrome, E66.01 - Morbid (severe) obesity due to excess calories, E88.810 - Metabolic syndrome, J45.909 - Unspecified asthma, uncomplicated, R79.89 - Other specified abnormal findings of blood chemistry IRON PROFILE Today E11.9 - Type 2 diabetes mellitus without complications, E28.2 - Polycystic ovarian syndrome, E66.01 - Morbid (severe) obesity due to excess calories, E88.810 - Metabolic syndrome, J45.909 - Unspecified asthma, uncomplicated, R79.89 - Other specified abnormal findings of blood chemistry Zinc Today E11.9 - Type 2 diabetes mellitus without complications, E28.2 - Polycystic ovarian syndrome, E66.01 - Morbid (severe) obesity due to excess calories, E88.810 - Metabolic syndrome, J45.909 - Unspecified asthma, uncomplicated, R79.89 - Other specified abnormal findings of blood chemistry C Reactive Protein Today E11.9 - Type 2 diabetes mellitus without complications, E28.2 - Polycystic ovarian syndrome, E66.01 - Morbid (severe) obesity due to excess calories, E88.810 - Metabolic syndrome, J45.909 - Unspecified asthma, uncomplicated, R79.89 - Other specified abnormal findings of blood chemistry Vitamin A Today E11.9 - Type 2 diabetes mellitus without complications, E28.2 - Polycystic ovarian syndrome, E66.01 - Morbid (severe) obesity due to excess calories, E88.810 - Metabolic syndrome, J45.909 - Unspecified asthma, uncomplicated, R79.89 - Other specified abnormal findings of blood chemistry Ferritin Today E11.9 - Type 2 diabetes mellitus without complications, E28.2 - Polycystic ovarian syndrome, E66.01 - Morbid (severe) obesity due to excess calories, E88.810 - Metabolic syndrome, J45.909 - Unspecified asthma, uncomplicated, R79.89 - Other specified abnormal findings of blood chemistry Vitamin D 25-OH Total Today E11.9 - Type 2 diabetes mellitus without complications, E28.2 - Polycystic ovarian syndrome, E66.01 - Morbid (severe) obesity due to excess calories, E88.810 - Metabolic syndrome, J45.909 - Unspecified asthma, uncomplicated, R79.89 - Other specified abnormal findings of blood chemistry XR chest 2V Today E11.9 - Type 2 diabetes mellitus without complications, E28.2 - Polycystic ovarian syndrome, E66.01 - Morbid (severe) obesity due to excess calories, E88.810 - Metabolic syndrome, J45.909 - Unspecified asthma, uncomplicated, R79.89 - Other specified abnormal findings of blood chemistry ECG 12 lead EKG Today E11.9 - Type 2 diabetes mellitus without complications, E28.2 - Polycystic ovarian syndrome, E66.01 - Morbid (severe) obesity due to excess calories, E88.810 - Metabolic syndrome, J45.909 - Unspecified asthma, uncomplicated, R79.89 - Other specified abnormal findings of blood chemistry FL upper GI w air Today E11.9 - Type 2 diabetes mellitus without complications, E28.2 - Polycystic ovarian syndrome, E66.01 - Morbid (severe) obesity due to excess calories, E88.810 - Metabolic syndrome, J45.909 - Unspecified asthma, uncomplicated, R79.89 - Other specified abnormal findings of blood chemistry Hemoglobin A1c Today E11.9 - Type 2 diabetes mellitus without complications, E28.2 - Polycystic ovarian syndrome, E66.01 - Morbid (severe) obesity due to excess calories, E88.810 - Metabolic syndrome, J45.909 - Unspecified asthma, uncomplicated, R79.89 - Other specified abnormal findings of blood chemistry Lipid Panel Today E11.9 - Type 2 diabetes mellitus without complications, E28.2 - Polycystic ovarian syndrome, E66.01 - Morbid (severe) obesity due to excess calories, E88.810 - Metabolic syndrome, J45.909 - Unspecified asthma, uncomplica masood, R79.89 - Other specified abnormal findings of blood chemistry Comprehensive Met. Panel Today E11.9 - Type 2 diabetes mellitus without complications, E28.2 - Polycystic ovarian syndrome, E66.01 - Morbid (severe) obesity due to excess calories, E88.810 - Metabolic syndrome, J45.909 - Unspecified asthma, uncomplicated, R79.89 - Other specified abnormal findings of blood chemistry Vitamin B12 and Folate Today E11.9 - Type 2 diabetes mellitus without complications, E28.2 - Polycystic ovarian syndrome, E66.01 - Morbid (severe) obesity due to excess calories, E88.810 - Metabolic syndrome, J45.909 - Unspecified asthma, uncomplicated, R79.89 - Other specified abnormal findings of blood chemistry Vitamin B1 Today E11.9 - Type 2 diabetes mellitus without complications, E28.2 - Polycystic ovarian syndrome, E66.01 - Morbid (severe) obesity due to excess calories, E88.810 - Metabolic syndrome, J45.909 - Unspecified asthma, uncomplicated, R79.89 - Other specified abnormal findings of blood chemistry TSH reflex Free T4 Today E11.9 - Type 2 diabetes mellitus without complications, E28.2 - Polycystic ovarian syndrome, E66.01 - Morbid (severe) obesity due to excess calories, E88.810 - Metabolic syndrome, J45.909 - Unspecified asthma, uncomplicated, R79.89 - Other specified abnormal findings of blood chemistry US abdomen comp w elastography Today E11.9 - Type 2 diabetes mellitus without complications, E28.2 - Polycystic ovarian syndrome, E66.01 - Morbid (severe) obesity due to excess calories, E88.810 - Metabolic syndrome, J45.909 - Unspecified asthma, uncomplicated, R79.89 - Other specified abnormal findings of blood chemistry Referrals Behavioral Health Referral E11.9 - Type 2 diabetes mellitus without complications, E28.2 - Polycystic ovarian syndrome, E66.01 - Morbid (severe) obesity due to excess calories, E88.810 - Metabolic syndrome, J45.909 - Unspecified asthma, uncomplicated, R79.89 - Other specified abnormal findings of blood chemistry Nutrition/Dietitian Referral E11.9 - Type 2 diabetes mellitus without complications, E28.2 - Polycystic ovarian syndrome, E66.01 - Morbid (severe) obesity due to excess calories, E88.810 - Metabolic syndrome, J45.909 - Unspecified asthma, uncomplicated, R79.89 - Other specified abnormal findings of blood chemistry Telehealth Telehealth Location of provider rendering services: practice address Location of patient: address on file Patient Identification confirmed using: Name, : Yes Telehealth method: voice only Patient verbally consented to treatment: Yes Patient verbally consented to billing insurance company: Yes Patient informed of any privacy concerns related to visit: Yes Minutes spent on Phone/Video with Pt.: 41 Coding Level of Care Code Tele New Pt Level 3 (20508) Diagnoses Morbid obesity E66.01 Time Spent (min) 41
[2023-04-12 14:14] VITALS: BMI 41.3
== END 2023-04-12 14:39 | disposition home or self-care (01) ==
LOC: HO.HBS 08:51
PROVIDERS: PCP Internal Medicine; Visit Provider Surgery
DX: E66.01 Morbid (severe) obesity due to excess calories (principal)
CPT/HCPCS: 99203

== ENCOUNTER → 2023-04-12 08:51 | Outpatient (BNVA) | payer OTHER, SELFPAY | PROVIDERS: PCP Internal Medicine; Visit Provider Surgery ==

== ENCOUNTER 2023-04-13 09:31 | Outpatient (REF) | payer OTHER, SELFPAY ==
--- NOTE | ~2023-04-13 | XR_ITS ---
EXAMINATION: XR CHEST CLINICAL INFORMATION: Morbid obesity due to excess calories. COMPARISON: 03/14/2020 TECHNIQUE: 2 views of the chest were obtained. FINDINGS: Heart size is normal. No pleural effusion. No focal consolidation to suggest pneumonia. XR/XR chest 2V IMPRESSION: No evidence of pneumonia.
--- NOTE | 2023-04-13 09:36 | ECG_ITS ---
Test Reason : E66.01 Blood Pressure : / mmHG Vent. Rate : 064 BPM Atrial Rate : 064 BPM P-R Int : 158 ms QRS Dur : 094 ms QT Int : 400 ms P-R-T Axes : 030 044 021 degrees QTc Int : 412 ms Normal sinus rhythm with sinus arrhythmia Normal ECG When compared with ECG of 14-MAR-2020 00:38, Vent. rate has decreased BY 37 BPM Referred By: Michael Whaley Electronically Signed By:Andrea Jorge
[2023-04-13 09:59] LABS: MANUAL DIFF FLAG NO
[2023-04-13 11:16] LABS: Basophils Percent Auto 0.5 % (0-2); Eosinophils Absolute Auto 0.2 X10*3/uL (0.0-0.4); Eosinophils Percent Auto 1.9 % (0-4); Hematocrit 42.3 % (37.0-47.0); Hemoglobin 14.4 g/dl (12.0-16.0); Imm Gran Abs Auto 0.01 X10*3/uL (0.00-0.03); Imm Gran Pct Auto 0.1 % (0.0-0.4); Lymphocytes Absolute Auto 2.6 X10*3/uL (1.2-4.9); Lymphocytes Percent Auto 32.2 % (20-40); Mean Corpuscular Hemoglobin 29.3 pg (27.0-33.0); Mean Platelet Volume 10.7 fL (9.4-12.3); Monocytes Absolute Auto 0.4 X10*3/uL (0.1-1.2); Monocytes Percent Auto 4.9 % (2-11); Neutrophils Absolute Auto 4.9 x10*3/uL (2.0-8.3); Neutrophils Percent Auto 60.4 % (45-73); Platelet Count 246 X10*3/uL (160-400); Red Blood Count 4.92 X10*6/uL (4.20-5.50); Red Cell Distribution Width 12.3 % (11.0-16.0)
[2023-04-13 12:07] LABS: Estimated Average Glucose 100 mg/dL; Hemoglobin A1c % 5.1 % (<6.0)
[2023-04-13 12:41] LABS: Alanine Aminotransferase 18 U/L (0-31); Albumin Level 4.4 g/dL (3.5-5.0); Alkaline Phosphatase 68 U/L (39-117); Anion Gap 13 (12-20); Aspartate Amino Transferase 17 U/L (5-31); Bilirubin Total 0.6 mg/dL (0.0-1.0); Blood Urea Nitrogen 11 mg/dL (9-16); C Reactive Protein 0.35 mg/dL (< or = 0.50); Calcium 9.3 mg/dL (8.4-10.2); Carbon Dioxide 23 mmol/L (22-29); Chloride 107 mmol/L (96-108); Cholesterol 155 mg/dL (<200); Estimated Glomerular Filt Rate > 60; Ferritin 114 ng/mL (10-122); Folate 8.8 ng/mL (> or = 4.0); Glucose Random 80 mg/dL (60-115); HDL Cholesterol 31 mg/dL (>40); Insulin 21 uU/mL (2-29); Iron 144 mcg/dL (30-160); LDL Cholesterol Calculated 92 mg/dL (<100); Percent Iron Saturation 48 % (15-50); Potassium 3.4 mmol/L (3.3-5.1); Sodium 140 mmol/L (135-145); TSH reflex Free T4 1.75 uIU/mL (0.32-4.0); Total Iron Binding Capacity 301 mcg/dL (228-428); Total Protein 7.8 g/dL (6.5-8.0); Triglycerides 162 mg/dL (<150); Unsaturated Iron Binding 157 ug/dL; Vitamin B12 228 pg/mL (200-900); Vitamin D 25-OH Total 11.9 ng/mL (>30)
[2023-04-16 16:19] LABS: Zinc 70 mcg/dL (60-130)
[2023-04-17 07:04] LABS: Vitamin A 35 mcg/dL (38-98)
[2023-04-17 15:38] LABS: Vitamin B1 10 nmol/L (8-30)
== END 2023-04-13 09:32 | disposition home or self-care (01) ==
LOC: HO.XRAY 09:31
PROVIDERS: PCP Internal Medicine; Visit Provider Surgery
DX: E66.01 Morbid (severe) obesity due to excess calories (principal); E28.2 Polycystic ovarian syndrome; E11.9 Type 2 diabetes mellitus without complications; R79.89 Other specified abnormal findings of blood chemistry; J45.909 Unspecified asthma, uncomplicated; E88.810 Metabolic syndrome
CPT/HCPCS: 36415; 71046; 80053; 80061; 82306; 82607; 82728; 82746; 83036; 83525; 83540; 84425; 84443; 84590; 84630; 85025; 86140; 93005

== ENCOUNTER → 2023-04-13 09:36 | Outpatient (BNV) | payer OTHER, SELFPAY | PROVIDERS: PCP Internal Medicine; Visit Provider Internal Medicine Cardiovascular Disease | DX: E66.01 Morbid (severe) obesity due to excess calories (principal) | CPT/HCPCS: 93010 ==

== ENCOUNTER 2023-04-20 10:53 | Outpatient (REF) | payer OTHER, SELFPAY ==
[2023-04-22 13:58] LABS: H Pylori Breath Test Positive (Negative)
== END 2023-04-20 10:54 | disposition home or self-care (01) ==
LOC: HO.LNP 10:53
PROVIDERS: Visit Provider Surgery
DX: E66.01 Morbid (severe) obesity due to excess calories (principal); E28.2 Polycystic ovarian syndrome; E11.9 Type 2 diabetes mellitus without complications; R79.89 Other specified abnormal findings of blood chemistry; J45.909 Unspecified asthma, uncomplicated; E88.810 Metabolic syndrome; Z11.0 Encounter for screening for intestinal infectious diseases
CPT/HCPCS: 83013

== ENCOUNTER → 2023-04-20 12:49 | Outpatient (BNVA) | payer OTHER, SELFPAY | PROVIDERS: PCP Internal Medicine; Visit Provider Physician Assistant Surgical | DX: Z11.0 Encounter for screening for intestinal infectious diseases (principal) | CPT/HCPCS: 99211 ==

== ENCOUNTER 2023-04-27 13:53 | Outpatient (AMB) | payer OTHER, SELFPAY ==
--- NOTE | 2023-04-27 13:10 | MHC.AMNUTRGE ---
Intake Intake Visit Reasons: VIDEO Initial Nutrition 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 Whaley nutrition plan, no concerns or questions. Exercise: 1 hour on treadmill at home , 7 days per week [facility] online classes: completed, scored well . Reviewed. All questions answered. Dietary counseling reduction Who buys your food self Who prepares/cooks your food self Meal frequency regular: lunch (3pm is first meal), dinner (5-6pm ; second dinner at 9pm ) and snacks ( bunch of snacks ) and never: breakfast Lifestyle Eating out 4 or more times/week Food frequency Fruit: never, Vegetables: never, Grains/pasta/breads/cereal (carbs): daily, Meat substitutes/nuts/seeds/legumes: daily, Restaurants/fast foods: daily, Desserts/sweets: daily, Water: daily, Soda: daily and Coffee: never Diagnosis Nutrition problem #1 overweight/obesity As related to (etiology) #1 excess energy intake and physical inactivity As evidenced by (sign/symptom) #1 high BMI Monitoring/Goals Outcome progress progressing Learning/Education Readiness to learn excellent Stages of change action Educational materials provided Yes Most Recent Diabetes Results: Cholesterol 155 mg/dL (<200) 04/13/23 HDL Cholesterol 31 mg/dL (>40) L 04/13/23 Triglycerides 162 mg/dL (<150) H 04/13/23 Creatinine 0.81 mg/dL (0.5-1.4) 04/13/23 Blood Urea Nitrogen 11 mg/dL (9-16) 04/13/23 Sodium 140 mmol/L (135-145) 04/13/23 Potassium 3.4 mmol/L (3.3-5.1) 04/13/23 Chloride 107 mmol/L (96-108) 04/13/23 Carbon Dioxide 23 mmol/L (22-29) 04/13/23 Calcium 9.3 mg/dL (8.4-10.2) 04/13/23 AST 17 U/L (5-31) 04/13/23 ALT 18 U/L (0-31) 04/13/23 Total Protein 7.8 g/dL (6.5-8.0) 04/13/23 Albumin 4.4 g/dL (3.5-5.0) 04/13/23 [facility] Medical History (Updated 04/20/23 @ 19:45 by Michael Whaley MD) Morbid obesity Generalized anxiety disorder Metabolic syndrome Abnormal TSH Pre-diabetes HTN (hypertension) PCOS (polycystic ovarian syndrome) Obesity Headache Vertigo Bronchitis delivery delivered Asthma Surgical History History of Family History Father No problems noted. 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 Educational requirements have been completed. Reviewed vitamin supplementation and commitment to protein shake for several months post surgery. Encouraged communication with office as needed Telehealth Telehealth Location of provider rendering services: practice address Location of patient: address on file Patient Identification confirmed using: Name, : Yes Telehealth method: video Patient verbally consented to treatment: Yes Patient verbally consented to billing insurance company: Yes Patient informed of any privacy concerns related to visit: Yes Minutes spent on Phone/Video with Pt.: 20 Coding Level of Care Code Nutr Indiv Intake (36527) Diagnoses Morbid (severe) obesity due to excess calories E66.01 Time Spent (min) 20
== END 2023-04-27 14:04 | disposition home or self-care (01) ==
LOC: HO.HBS 13:53
PROVIDERS: PCP Internal Medicine; Visit Provider Dietitian, Registered
DX: E66.01 Morbid (severe) obesity due to excess calories (principal)

== ENCOUNTER → 2023-04-27 13:53 | Outpatient (BNVA) | payer OTHER, SELFPAY | PROVIDERS: PCP Internal Medicine; Visit Provider Dietitian, Registered | DX: E66.01 Morbid (severe) obesity due to excess calories (principal) | CPT/HCPCS: 97802 ==

== ENCOUNTER 2023-05-03 08:14 | Outpatient (AMB) | payer OTHER, SELFPAY ==
--- NOTE | 2023-05-03 12:27 | A.OFFVIS_ITS ---
Intake VS Expanded 05/03/23 12:34 Height 5 ft 3 in Weight 216 lb BMI 38.3 Body Fat % 48.3 Body Fat Mass 104.3 Fat Free Mass 111.8 Visceral Fat Rating 20 Body Water % 35.5 Body Water Mass 76.6 Basal Metabolic Rate/Score 1,464 Intake Visit Reasons: TV Follow Up SWL - 1ST Allergies metfomin Adverse Reaction (Severe, Uncoded 02/18/23 13:44) Diarrhea HPI TV Follow Up SWL - 1ST HPI Details Start time: 12.20pm, End time: 12.40pm ?I spent 15 minutes speaking with the patient on the phone plus an additional 5 minutes reviewing and updating records for a total of 20 minutes HPI Comments History of Present Illness Details Overall weight loss: 17.2lbs, or 7.38% TBWL Is doing 2 Isopure Infusions protein shakes (1/2 scoop in water each), 3 Zone Perfect protein bars and one meal (8 forks of protein and 8 forks of salad) Exercise: treadmill for 300 calories per day, daily PFS Medical History (Updated 05/03/23 @ 12:42 by Michael Whaley MD) Obesity Morbid obesity Generalized anxiety disorder Metabolic syndrome Abnormal TSH Pre-diabetes HTN (hypertension) PCOS (polycystic ovarian syndrome) Headache Vertigo Bronchitis delivery delivered Asthma Surgical History History of Family History Father No problems noted. 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 [employer] Current occupational exposures/hazards: No Gender identity: Female Cognitive needs: No Hearing needs: No Vision needs: No Female Reproductive History Menstrual Age of Menarche: 8 Assessment & Plan Assessment & Plan (1) Obesity: Code(s): E66.9 - Obesity, unspecified Qualifiers: Obesity classification: adult class 2 (BMI 35 - 39.9) Serious obesity comorbidity presence: unspecified whether serious comorbidity present Obesity type: due to excess calories Body mass index: BMI 39.0-39.9 Qualified Code(s): E66.09 - Other obesity due to excess calories; Z68.39 - Body mass index [BMI] 39.0-39.9, adult Plan: 1. Plan for lap sleeve gastrectomy including upper GI endoscopy. All tests has been completed and reviewed and the patient is cleared for the surgery. If diaphragmatic or ventral hernias are present at time of surgery, these will be repaired laparoscopically as well. Risks and complications were discussed in detail including possible conversion to an open procedure, anastomotic leak, bleeding requiring transfusion, small bowel obstruction, , DVT and pulmonary embolism, cardiac, or pulmonary complications, as correction complications such as anastomotic ulcer, insufficient weight loss and vitamin deficiencies. I emphasized the importance of close follow-up, adherence to instructions and good communication. So far she has proven to be an excellent communicator and very compliant with all our directions accomplishing a great weight loss. I believe that she is an excellent candidate and she is ready. 2. Change nutritional plan to one Isopure Infusions shake (QUARTER scoop in 8oz water), 2 Isopure Infusions protein shakes (1/2 scoop in water each), TWO Zone Perfect protein bars and one meal (8 forks of protein and 8 forks of salad) 3. Exercise: continue treadmill for 300 calories per day, daily 4. Continue to send weight measurement weekly on Mondays Patient Instructions: Telehealth Telehealth Location of provider rendering services: practice address Location of patient: address on file Patient Identification confirmed using: Name, : Yes Telehealth method: voice only Patient verbally consented to treatment: Yes Patient verbally consented to billing insurance company: Yes Patient informed of any privacy concerns related to visit: Yes Minutes spent on Phone/Video with Pt.: 20 Coding Level of Care Code Tele Est Pt Level 3 (02135) Diagnoses Class 2 obesity due to excess calories with body mass index (BMI) of 39.0 to 39.9 in adult, unspecified whether serious comorbidity present E66.09; Z68.39 Obesity classification: adult class 2 (BMI 35 - 39.9) Serious obesity comorbidity presence: unspecified whether serious comorbidity present Obesity type: due to excess calories Body mass index: BMI 39.0-39.9 Time Spent (min) 20
[2023-05-03 12:34] VITALS: BMI 38.3
== END 2023-05-03 12:40 | disposition home or self-care (01) ==
LOC: HO.HBS 08:15
PROVIDERS: PCP Internal Medicine; Visit Provider Surgery
DX: E66.09 Other obesity due to excess calories (principal); Z68.39 Body mass index [BMI] 39.0-39.9, adult
CPT/HCPCS: 99213

== ENCOUNTER → 2023-05-03 08:14 | Outpatient (BNVA) | payer OTHER, SELFPAY | PROVIDERS: PCP Internal Medicine; Visit Provider Surgery ==

== ENCOUNTER 2023-05-04 14:09 | Outpatient (AMB) | payer OTHER, SELFPAY ==
--- NOTE | 2023-05-04 13:52 | A.OFFWM_ITS ---
Intake Intake Visit Reasons: VIDEO BH Intake Allergies metfomin Adverse Reaction (Severe, Uncoded 02/18/23 13:44) Diarrhea PFSH Medical History (Updated 05/04/23 @ 14:04 by Leeanna Brothers) Obesity Morbid obesity Generalized anxiety disorder Metabolic syndrome Abnormal TSH Pre-diabetes HTN (hypertension) PCOS (polycystic ovarian syndrome) Headache Vertigo Bronchitis delivery delivered Asthma Surgical History History of Family History Father No problems noted. 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 Pt denied any history of mental health difficulties, is currently not in therapy. She has no history of problems with drugs or alcohol. Presenting Concerns Referral Source provider Reason for referral weight loss surgery evaluation Precipitating Event obesity Living Situation Current Living Situation Rent At risk of losing current housing? No Satisfied with current living situation? Yes Comments Pt lives with her ten year old son in a duplex. Food/Weight/Diet Expectations of change weight loss and maintenance History/Relationship with food Pt was eating fast food several times a week and sometimes more than once per day. also daily soda, home cooked meals, desserts, late night snacking also would eat out of boredom and eat large quantities. History/Relationship with weight Pt stated that she has struggled with her weight for ten years now. History/Relationship with dieting weight loss pills, keto, Binge Eating Do you frequently eat large amounts of food in short periods of time, not fee ling physically hungry? No Do you feel out of control when you eat a large amount of food in a short period of time? No Do you eat large amounts of food rapidly and typically alone? Yes Night Eating Do you wake up at least once during the night to eat? No If you wake up in the night, do you find that it is necessary to eat something in order to fall back asleep? No Do you have little or no appetite in the morning and feel very hungry in the evening, often overeating between dinner and when you go to bed? 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 her mother also lives next door. Cultural/Ethnic information Legal Involvement and History Current or historical involvement with the legal system? no issues Education Highest grade completed high school and certificate program in medical information officer Preferred learning style Auditory, Verbal, Written, Learn by doing and Visual Currently enrolled in educational program? No Interested in further educational program? 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 No Meaningful activities working out Financial Situation Describe current financial situation Occasional struggle Service Service? No Mental Health and Addiction Treatment Current/Past substance abuse? No Current/Past addictive behavior concerns? No Medical and Physical Health Summary Physical exam in the last year? Yes Pain Screening Current pain? No Pain in the last few months? No Medications Is the patient compliant with medications? Yes Does the patient have Berg Guardian in place? Not applicable Does the patient use complimentary health approaches? No Trauma/Abuse History History of trauma? No Questionnaires PHQ-9 Over the last 2 weeks, how often have you been bothered by any of the following problems? 1. Little interest or pleasure in doing things: not at all 2. Feeling down, depressed, or hopeless: more than half the days 3. Trouble falling or staying asleep, or sleeping too much: more than half the days 4. Feeling tired or having little energy: more than half the days 5. Poor appetite or overeating: several days 6. Feeling bad about yourself - or that you are a failure or have let yourself or your family down: not at all 7. Trouble concentrating on things, such as reading the newspaper or watching television: not at all 8. Moving or speaking so slowly that other people could have noticed. Or the opposite - being so fidgety or restless that you have been moving around a lot more than usual: not at all 9. Thoughts that you would be better off or of hurting yourself in some way: not at all Total score: 7 Source: Developed by Drs. Alessio Gómez, Lizzeth Gao, Deion Adhikari and colleagues, with an educational jyothi from [employer]. Binge Eating Scale Group 1 A. I don't feel self-conscious about my wt. or body size when I'm with others. B. I feel concerned about how I look to others, but it normally does not make me fell disappointed with myself C. I do get self-conscious about my appearance and wt. which makes me feel disappointed in myself. D. I feel very self-conscious about my wt. and frequently I feel intense shame and disgust for myself. I try to avoid social contacts because of my self- consciousness. Response Group 1: C Group 2 A. I don't have any difficulty eating slowly in the proper manner. B. Although I seem to gobble down foods, I don't end up feeling stuffed because of eating to much. C. At times, I tend to eat quickly and then, I feel uncomfortably full afterwards. D. I have the habit of bolting down my food, without really chewing it. When this happens I usually feel uncomfortably stuffed because I've eaten to much. Response Group 2: C Group 3 A. I feel capable to control my eating urges when I want to. B. I feel like I have failed to control my eating more than the average person. C. I feel utterly helpless when it comes to feeling in control of my eating urges. D. Because I feel so helpless about controlling my eating I have become very desperate about trying to get control. Response Group 3: A Group 4 A. I don't have the habit of eating when I'm bored. B. I sometimes eat when I'm bored, but often I'm able to get busy and get my mind off food. C. I have a regular habit of eating when I'm bored, but occasionally, I can use some other activity to get my mind off eating. D. I have a strong habit of eating when I'm bored. Nothing seems to help me breath the habit. Response Group 4: C Group 5 A. I'm usually physically hungry when I eat something. B. Occasionally, I eat something on impulse even though I really am not hungry. C. I have the regular habit of eating foods, that I might not really enjoy, to satisfy a hungry feeling even though physically, I don't need the food. D. Although I'm not physically hungry, I get a hungry feeling in my mouth that only seems to be satisfied when I eat a food, like sandwich, that fills my mouth. Sometimes, when I eat the food to satisfy my mouth hunger, I then spit the food out so I won't gain weight. Response Group 5: B Group 6 A. I don't feel any guilt or self-hate after I overeat. B. After I overeat, occasionally I feel guilt or self-hate. C. Almost all the time I experience strong guilt or self-hate after I overeat. Response Group 6: B Group 7 A. I don't lose total control of my eating when dieting even after periods when I overeat. B. Sometimes when I eat a forbidden food on a diet, I feel like I blew it and eat even more. C. Frequently, I have the habit of saying to myself, I've blown it now, why not go all the way, when I overeat on a diet. When that happens I eat more. D. I have a regular habit of starting a strict diets for myself but I break the diets by going on an eating binge. My life seems to be either a feast or famine. Response Group 7: B Group 8 A. I rarely eat so much food that I feel uncomfortably stuffed afterwards. B. Usually about once a month, I each such a quantity of food, I end up feeling very stuffed. C. I have regular periods during the month when I eat large amounts of food, either at mealtime or at snacks. D. I eat so much food that I regularly feel quite uncomfortable after eating and sometimes a bit nauseous. Response Group 8: B Group 9 A. My level of calorie intake does not go up very high or go down very low on a regular basis. B. Sometimes after I overeat, I will try to reduce my caloric intake to almost nothing to compensate for the excess calories I've eaten. C. I have a regular habit of overeating during the night. It seems that my routine is not to be hungry in the morning but overeat in the evening. D. In my adult years, I have had week-long periods where I practically starve myself. This follows periods when I overeat. It seems I live a life of either fe ast or famine. Response Group 9: C Group 10 A. I usually am able to stop eating when I want to. I know when enough is enough. B. Every so often, I experience a compulsion to eat which I can't seem to control. C. Frequently, I experience strong urges to eat which I seem unable to control, but at other times I can control my eating urges. D. I feel incapable of controlling urges to eat. I have a fear of not being able to stop eating voluntarily. Response Group 10: A Group 11 A. I don't have any problem stopping eating when I feel full. B. I usually can stop eating when I feel full but occasionally overeat leaving me feeling uncomfortably stuffed. C. I have a problem stopping eating once I start and usually I feel uncomf ortably stuffed after I eat a meal. D. Because I have a problem not being able to stop eating when I want, I sometimes have to induce vomiting to relieve my stuffed feeling. Response Group 11: A Group 12 A. I seem to eat just as much when I'm with others, Family social gatherings as when I'm by myself. B. Sometimes, when I'm with other persons, I don't eat as much as I want to eat because I'm self-conscious about my eating. C. Frequently, I eat only a small amount of food when others are present, because I'm very embarrassed about my eating. D. I feel so ashamed about overeating that I pick times to overeat when I know no one will see me. I feel like a closet eater. Response Group 12: B Group 13 A. I eat three meals a day with only an occasional between meal snack. B. I eat 3 meals a day, but I also normally snack between meals. C. When I am snacking heavily, I get in the habit of skipping regular meals. D. There are regular periods when I seem to be continually eating, with no planned meals. Response Group 13: C Group 14 A. I don't think much about trying to control unwanted eating urges. B. At least some of the time, I feel my thoughts are pre-occupied with trying to control my eating urges. C. I feel that frequently I spend much time thinking about how much I ate or about trying not to eat anymore. D. It seems to me that most of my waking hours are pre-occupied by thoughts about eating or not eating. I feel like I'm constantly struggling not to eat. Response Group 14: B Group 15 A. I don't think about food a great deal. B. I have strong craving for food but they last only for brief periods of time. C. I have days when I can't seem to think about anything else but food. D. Most of my days seem to be pre-occupied with thoughts about food. I feel like I live to eat. Response Group 15: B Group 16 A. I usually know whether or not I'm physically hungry. I take the right portion of food to satisfy me. B. Occasionally, I feel uncertain about knowing whether or not I'm physically hungry. A these times it's hard to know how much food I should take to satisfy me. C. Even though I might know how many calories I should eat, I don't have any idea what is a normal amount of food for me. Response Group 16: B Binge Eating Score: 18 Score less than 17 Minimal Risk Score between 18-26 Moderate Risk Score between 27-46 High Risk Assessment & Plan Assessment & Plan (1) Adjustment disorder, unspecified: Code(s): F43.20 - Adjustment disorder, unspecified (2) PCOS (polycystic ovarian syndrome): Code(s): E28.2 - Polycystic ovarian syndrome (3) Obesity (BMI 30-39.9): Code(s): E66.9 - Obesity, unspecified Plan Patient has no serious mental health issues or barriers. She is cleared for surgery. Telehealth Telehealth Location of provider rendering services: other Location of patient: address on file Patient Identification confirmed using: Name, : Yes Telehealth method: voice only Patient verbally consented to treatment: Yes Patient verbally consented to billing insurance company: Yes Patient informed of any privacy concerns related to visit: Yes Minutes spent on Phone/Video with Pt.: 40 Coding Level of Care Code Tele Psy Diag Eval (26924) Diagnoses Adjustment disorder, unspecified F43.20 PCOS (polycystic ovarian syndrome) E28.2 Obesity (BMI 30-39.9) E66.9 Time Spent (min) 45
== END 2023-05-04 14:18 | disposition home or self-care (01) ==
LOC: HO.HBST 14:09
PROVIDERS: PCP Internal Medicine; Visit Provider Counselor Mental Health
DX: F43.20 Adjustment disorder, unspecified (principal); E28.2 Polycystic ovarian syndrome; E66.9 Obesity, unspecified
CPT/HCPCS: 90791

== ENCOUNTER → 2023-05-04 14:09 | Outpatient (BNVA) | payer OTHER, SELFPAY | PROVIDERS: PCP Internal Medicine; Visit Provider Counselor Mental Health | DX: F43.20 Adjustment disorder, unspecified (principal); E28.2 Polycystic ovarian syndrome; E66.9 Obesity, unspecified ==

== ENCOUNTER 2023-05-11 09:16 | Outpatient (REF) | payer OTHER, SELFPAY ==
--- NOTE | ~2023-05-11 | US_ITS ---
EXAMINATION: US COMPLETE ABDOMEN WITH LIVER ELASTOGRAPHY CLINICAL INFORMATION: Obesity. COMPARISON: Renal ultrasound dated 08/11/2017. TECHNIQUE: Real-time imaging of the abdominal viscera. Noninvasive ultrasound liver fibrosis assessment is performed using Aydee ElastPQ point quantification shear wave elastography (2D-SWE) with a C5-2 MHz transducer. Multiple elastography samples are obtained. FINDINGS: PANCREAS: Limited. The visualized pancreatic head and body are normal in appearance. The remainder of the pancreas is obscured from visualization by the overlying bowel gas. ABDOMINAL AORTA: The proximal, middle, and distal aortic segments are normal in caliber. INFERIOR VENA CAVA: Visualized portions are normal. LIVER: The liver demonstrates normal size, contour and mildly increased echogenicity. No focal lesion or intrahepatic biliary duct dilatation. The right lobe measures 15.0 cm in length. The left lobe measures 9.3 cm in length. Portal flow is towards the liver (hepatopetal). Shear wave liver elastography median stiffness is 1.31 m/s (reference: normal median stiffness is 1.3 m/s or less). IQR/median stiffness to assess sampling precision is 0.10 (reference: good quality data set is IQR/median stiffness of 0.15 or less). GALLBLADDER: Normal. The gallbladder is physiologically distended without evidence of stones, sludge, polyps, wall thickening or pericholecystic fluid. COMMON BILE DUCT: Normal in caliber measuring 0.2 cm in diameter. RIGHT KIDNEY: Normal. No hydronephrosis. No renal calculi or focal parenchymal lesions. The kidney measures 9.8 cm in maximum dimension. LEFT KIDNEY: Normal. No hydronephrosis. No renal calculi or focal parenchymal lesions. The kidney measures 10.7 cm in maximum dimension. SPLEEN: Normal. The spleen measures 11.4 cm in maximum dimension. FREE FLUID: None. US/US abdomen comp w elastography IMPRESSION: 1. There is mild increase in hepatic echotexture, consistent with fatty infiltration or hepatocellular disease. Please correlate clinically. No focal hepatic mass or intrahepatic biliary dilatation is seen. 2. Liver elastography: In the absence of other known clinical signs, measurements rule out compensated advanced chronic liver disease. If there are known clinical signs, further testing may be needed for confirmation. 3. Technically limited ultrasound examination of the pancreatic tail. REFERENCE: Society of Radiologists in Ultrasound Liver Stiffness Thresholds (2020): LIVER STIFFNESS THRESHOLDS: *Liver Stiffness equal or less than 1.3 m/s: High probability of being normal. *Liver Stiffness less than 1.7 m/s: In the absence of other known clinical signs, rules out compensated advanced chronic liver disease. *Liver Stiffness 1.7-2.1 m/s: Suggestive of compensated advanced chronic liver disease but need further test for confirmation. *Liver Stiffness over 2.1 m/s: Rules in compensated advanced chronic liver disease. *Liver Stiffness over 2.4 m/s: Suggestive of clinically significant portal hypertension. QUALITY OF DATA SET: *IQR/Median value equal or less than 0.15 implies a quality data set. *IQR/Median value over 0.15 implies a poor quality data set. SIGNIFICANT CHANGE FROM PRIOR EXAM: Significant change if liver stiffness measurement is 10% or greater from prior exam. OTHER CONSIDERATIONS: The stage of liver fibrosis may be overestimated in the setting of acute hepatitis, liver inflammation, elevated liver function tests, hepatic vascular congestion, obstructive cholestasis, non-fasting state, and infiltrative diseases such as amyloidosis and lymphoma. In some patients with NAFLD, the liver stiffness thresholds for compensated advanced chronic liver disease may be lower. In causes other than viral hepatitis and NAFLD, liver stiffness thresholds are not well established.
== END 2023-05-11 09:17 | disposition home or self-care (01) ==
LOC: HO.US 09:16
PROVIDERS: PCP Internal Medicine; Visit Provider Surgery
DX: E66.01 Morbid (severe) obesity due to excess calories (principal); E28.2 Polycystic ovarian syndrome; E11.9 Type 2 diabetes mellitus without complications; R79.89 Other specified abnormal findings of blood chemistry; J45.909 Unspecified asthma, uncomplicated; E88.810 Metabolic syndrome
CPT/HCPCS: 76700; 76981

== ENCOUNTER 2023-05-18 09:33 | Outpatient (REF) | payer OTHER, SELFPAY ==
--- NOTE | ~2023-05-18 | FL_ITS ---
EXAMINATION: XR FLUOROSCOPY UPPER GI WITH AIR CLINICAL INFORMATION: Preop evaluation prior to bariatric surgery COMPARISON: None TECHNIQUE: Fluoroscopic air contrast upper GI examination was performed utilizing standard techniques with thin and thick barium and effervescent granules. Numerous spot images were obtained. FINDINGS: Lateral cine images of the oropharynx and hypopharynx demonstrate normal swallow mechanism with normal epiglottic inversion and soft palate elevation. No tracheal penetration, glottic or subglottic aspiration identified. No nasopharyngeal reflux present. Hypopharyngeal structures appear normal without evidence of mass or diverticulum. There was no significant cricopharyngeal achalasia. Dual and single contrast images of the esophagus demonstrate normal caliber, contour, and mucosal pattern. No evidence of stricture, mass, or ulcerations identified. Esophageal peristalsis was normal. No evidence of hiatus hernia identified. Episodic gastroesophageal reflux is present to the level of the madan. Dual contrast and single contrast images of the stomach demonstrated normal contour and mucosal pattern without evidence of mass, ulceration, or other abnormality. Contrast freely passed into the gastric antrum and duodenal bulb without delay. Single and air-contrast images of the duodenal bulb demonstrate no abnormality. The duodenal sweep has a normal appearance, course, and mucosal fold appearance. The imaged proximal jejunum has a normal fold pattern and caliber. FLUOROSCOPY TIME: 3 minutes 35 seconds Number of Spot Images: 18 Number of Cine: 8 DOSE AREA PRODUCT: 3428 uGy-m2 (microgray-meter squared) FL/FL upper GI w air IMPRESSION: Mild gastroesophageal reflux, otherwise unremarkable upper GI series This procedure was performed by Grant Newton PA-C, and supervised by Dr. Abbasi
== END 2023-05-18 09:34 | disposition home or self-care (01) ==
LOC: HO.XRAY 09:33
PROVIDERS: PCP Internal Medicine; Visit Provider Surgery
DX: E66.01 Morbid (severe) obesity due to excess calories (principal); E28.2 Polycystic ovarian syndrome; E11.9 Type 2 diabetes mellitus without complications; R79.89 Other specified abnormal findings of blood chemistry; J45.909 Unspecified asthma, uncomplicated; E88.810 Metabolic syndrome
CPT/HCPCS: 74246

== ENCOUNTER → 2023-05-18 09:34 | Outpatient (BNV) | payer OTHER, SELFPAY | PROVIDERS: PCP Internal Medicine; Visit Provider Physician Assistant Surgical | DX: E66.01 Morbid (severe) obesity due to excess calories (principal); Z01.818 Encounter for other preprocedural examination | CPT/HCPCS: 74246 ==

== ENCOUNTER 2023-05-24 08:39 | Outpatient (AMB) | payer OTHER, SELFPAY ==
--- NOTE | 2023-05-23 13:33 | A.OFFVIS_ITS ---
Intake VS Expanded 05/23/23 13:38 Height 5 ft 3 in Weight 211 lb BMI 37.4 Body Fat % 46.9 Body Fat Mass 98.9 Fat Free Mass 112 Visceral Fat Rating 19 Body Water % 36.4 Body Water Mass 76.8 Basal Metabolic Rate/Score 1,475 Intake Visit Reasons: TV Pre Op LSG 06/03/23 Allergies metfomin Adverse Reaction (Severe, Uncoded 02/18/23 13:44) Diarrhea HPI TV Pre Op LSG 06/03/23 HPI Details Start time: 1pm, End time: 1.30pm ?I spent 25 minutes speaking with the patient on the phone plus an additional 5 minutes reviewing and updating records for a total of 30 minutes HPI Comments History of Present Illness Details Overall weight loss: 22.2lbs, or 9.52% TBWL Is doing 2 Isopure Infusions protein shakes (1/2 scoop in water each), 3 Zone Perfect protein bars and one meal (8 forks of protein and 8 forks of salad) Exercise: treadmill for 300 calories per day, daily REPLACED BY [facility] Medical History (Updated 05/24/23 @ 11:28 by Michael Whaley MD) Obesity Morbid obesity Generalized anxiety disorder Metabolic syndrome Abnormal TSH Pre-diabetes HTN (hypertension) PCOS (polycystic ovarian syndrome) Headache Vertigo Bronchitis delivery delivered Asthma Surgical History History of Family History Father No problems noted. Mother Asthma Family/Other Asthma Maternal Grandmother Breast cancer Other Mental health disorder Social History Housing: House Alcohol intake: never Patient Tobacco Use Status: Never used Tobacco e-Cigarette/Vaping Use: Never Used Second Hand Smoke Exposure: No service: No Current occupational status: employed Current occupation: [employer] service at [employer] Current occupational exposures/hazards: No Gender identity: Female Cognitive needs: No Hearing needs: No Vision needs: No Female Reproductive History Menstrual Age of Menarche: 8 Physical Exam Vital Signs: BMI result Body Mass Index 37.4 Assessment & Plan Assessment & Plan (1) Obesity: Code(s): E66.9 - Obesity, unspecified Qualifiers: Body mass index: BMI 39.0-39.9 Obesity classification: adult class 2 (BMI 35 - 39.9) Obesity type: due to excess calories Serious obesity comorbidity presence: unspecified whether serious comorbidity present Qualified Code(s): E66.09 - Other obesity due to excess calories; Z68.39 - Body mass index [BMI] 39.0-39.9, adult Plan: 1. Plan for lap sleeve gastrectomy including upper GI endoscopy. All tests has been completed and reviewed and the patient is cleared for the surgery. ?If diaphragmatic or ventral hernias are present at time of surgery, these will be repaired laparoscopically as well. 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 I emphasized the importance of close follow-up, adherence to instructions and good communication. So far she has proven to be an excellent communicator and very compliant with all our directions accomplishing a great weight loss. I believe that she is an excellent candidate and she is ready. 2. Preop prescriptions were provided and explained the purpose of each one. Need to be purchased preop. Start Pantoprazole now as you get it from the pharmacy, 1 pill per day. Sucralfate and Zofran are for after surgery as needed. 3. Bowel prep: please do 7 packets ?of Miralax mixing each one with a an 8oz glass of water, crystal light, gatorade zero, or propel ?on 06/01/23 and the same amount on 06/02/23. The Miralax you begin with one packet at a time in 8oz water or crystal light, gatorade zero, or propel ?as early in the day as you can and you do them back to back until you finish them. Continue the protein shakes dur ing? the bowel prep. 4. Needs to purchase 1oz medicine cups . 5. Needs to purchase Children's liquid Tylenol for postop pain control. 6. She needs to stop the Nexplanon as of tomorrow. Avoid aspirin, motrin, Advil, Aleve, Ibuprofen, Naproxyn. Tylenol is OK. 7. She needs to purchase the Celebrate 4:1 protein shakes from the hospital's gift shop. 8. Will do basic preop blood work-up any day between Wednesday05/31/23 and Wednesday06/01/23 fasting for 12 hours and is scheduled to see the Anesthesiologist prior to the day of surgery. 9. Importance of adherence to postop folllow-up and recommendations was underscored and she understands that. 10. Stop food and bars as of tomorrow 05/24/23 and continue with 4 Isopure protein shakes (HALF scoop EACH in 8oz water) at 9am-11am, 12pm-2pm, 3pm-5pm, 6pm-8pm and one more Isopure protein shake with ONE scoop in 8oz of water at 9pm-11pm 11. No soups, broths or V8 12. The patient's?medical?history has been reviewed and they are considered low risk for post op DVT and therefore DVT prophylaxis is not considered necessary. Travel after surgery was reviewed. The patient has not disclosed any travel plans during the first 30 days after surgery and they have been advised that within the first 30 days after surgery any bus, plane, train or car travel over 2 hours in duration is contraindicated due to the possibility of developing blo od clots from immobility. Any travel, needs to include periods of ambulation of 10 minutes in duration every 2 hours.? Patient was instructed to discuss any plans for travel during this period with their bariatric surgeon.? 13. Please take at the day of surgery the following medications: NONE 14. Stop any control pills and don't use them for one month after surgery 15. Absolutely no smoking or vaping, or marijuana until the surgery and for at least the first 4 weeks. Only nicotine patches are allowed. 16. Send me weight measurements on and then on the day of surgery before you go to the hospital. 17. Avoid any steroids by mouth for any reason. Let me know if someone pres cribes them to you 18. These instructions supersede anything else you read in the handbook, anything you watched in videos or classes or you were told by any other provider. If there is any conflict, you follow the above instructions and nothing else. Orders: Orders TSH reflex Free T4 05/23/23 E66.9 - Obesity, unspecified Partial Thromboplastin Time 05/23/23 E66.9 - Obesity, unspecified Comprehensive Met. Panel 05/23/23 E66.9 - Obesity, unspecified Prothrombin Time INR 05/23/23 E66.9 - Obesity, unspecified Type and Screen 05/23/23 E66.9 - Obesity, unspecified Lipid Panel 05/23/23 E66.9 - Obesity, unspecified Hemoglobin A1c 05/23/23 E66.9 - Obesity, unspecified C Reactive Protein 05/23/23 E66.9 - Obesity, unspecified Complete Blood Count Auto Diff 05/23/23 E66.9 - Obesity, unspecified Insulin 05/23/23 E66.9 - Obesity, unspecified Medications: New sucralfate 10 mL PO BID 600 mL 2RF K21.9 - Gastro-esophageal reflux disease without esophagitis ondansetron Only take one every 12 hours as needed if you have nausea 4 mg PO Q12H 20 tabs 0RF nausea and vomiting R11.0 - Nausea fondaparinux 2.5 mg (0.5 mL) subcut Q24H 5 mL 0RF Z78.9 - Other specified health status pantoprazole 40 mg PO DAILY 90 tabs 0RF K21.9 - Gastro-esophageal reflux disease without esophagitis polyethylene glycol 3350 (Miralax) Mix each packet with 8oz of water, Crystal light, or Gatorade zero, or Propel and do 7 packets on 06/01/23 and another 7 packets on 06/02/23 17 grams PO DAILY 14 ea 0RF Z01.818 - Encounter for other preprocedural examination Telehealth Telehealth Location of provider rendering services: practice address Location of patient: address on file Patient Identification confirmed using: Name, : Yes Telehealth method: voice only Patient verbally consented to treatment: Yes Patient verbally consented to billing insurance company: Yes Patient informed of any privacy concerns related to visit: Yes Minutes spent on Phone/Video with Pt.: 30 Coding Level of Care Code Tele Est Pt Level 4 (25039) Diagnoses Class 2 obesity due to excess calories with body mass index (BMI) of 39.0 to 39 .9 in adult, unspecified whether serious comorbidity present E66.09; Z68.39 Body mass index: BMI 39.0-39.9 Obesity classification: adult class 2 (BMI 35 - 39.9) Obesity type: due to excess calories Serious obesity comorbidity presence: unspecified whether serious comorbidity present Time Spent (min) 30
[2023-05-23 13:38] VITALS: BMI 37.4
== END 2023-05-24 15:02 | disposition home or self-care (01) ==
LOC: HO.HBS 08:39
PROVIDERS: PCP Internal Medicine; Visit Provider Surgery
DX: E66.09 Other obesity due to excess calories (principal); Z68.39 Body mass index [BMI] 39.0-39.9, adult
CPT/HCPCS: 99214

== ENCOUNTER → 2023-05-24 08:39 | Outpatient (BNVA) | payer OTHER, SELFPAY | PROVIDERS: PCP Internal Medicine; Visit Provider Surgery | DX: E66.9 Obesity, unspecified (principal); K21.9 Gastro-esophageal reflux disease without esophagitis; R11.0 Nausea; Z01.818 Encounter for other preprocedural examination ==

== ENCOUNTER → 2023-05-28 08:32 | Outpatient (BNVA) | payer OTHER, SELFPAY | PROVIDERS: PCP Internal Medicine; Visit Provider Surgery ==

== ENCOUNTER 2023-06-01 08:49 | Outpatient (REF) | payer OTHER, SELFPAY ==
[2023-06-01 14:21] LABS: H Pylori Breath Test Negative (Negative)
== END 2023-06-01 08:50 | disposition home or self-care (01) ==
LOC: HO.LNP 08:49
PROVIDERS: PCP Internal Medicine; Visit Provider Physician Assistant Surgical
DX: A04.8 Other specified bacterial intestinal infections (principal)
CPT/HCPCS: 83013; 99211

== ENCOUNTER 2023-06-03 06:00 | Inpatient (IN) | payer OTHER, SELFPAY ==
[2023-05-26 14:27] VITALS: BMI 36.8
[2023-05-28 08:03] LABS: MANUAL DIFF FLAG NO
[2023-05-28 08:09] LABS: Basophils Percent Auto 0.5 % (0-2); Eosinophils Absolute Auto 0.1 X10*3/uL (0.0-0.4); Hematocrit 45.2 % (37.0-47.0); Hemoglobin 15.3 g/dl (12.0-16.0); Imm Gran Abs Auto 0.01 X10*3/uL (0.00-0.03); Imm Gran Pct Auto 0.2 % (0.0-0.4); Lymphocytes Absolute Auto 2.2 X10*3/uL (1.2-4.9); Lymphocytes Percent Auto 34.6 % (20-40); Mean Corpuscular HGB Conc 33.8 g/dl (31.0-35.0); Mean Corpuscular Hemoglobin 29.3 pg (27.0-33.0); Mean Corpuscular Volume 86.6 fL (80.0-98.0); Monocytes Absolute Auto 0.4 X10*3/uL (0.1-1.2); Monocytes Percent Auto 5.9 % (2-11); Neutrophils Absolute Auto 3.7 x10*3/uL (2.0-8.3); Neutrophils Percent Auto 56.8 % (45-73); Platelet Count 218 X10*3/uL (160-400); Red Blood Count 5.22 X10*6/uL (4.20-5.50); Red Cell Distribution Width 12.9 % (11.0-16.0); White Blood Count 6.5 X10*3/uL (4.8-10.8)
[2023-05-28 08:12] LABS: INTERNATIONAL NORM RATIO 1.2 (0.9-1.1)
[2023-05-28 08:15] LABS: Partial Thromboplastin Time 33.4 SEC (26.0-36.8)
[2023-05-28 08:45] LABS: Estimated Average Glucose 94 mg/dL; Hemoglobin A1c % 4.9 % (<6.0)
[2023-05-28 09:39] LABS: Alanine Aminotransferase 40 U/L (0-31); Albumin Level 4.9 g/dL (3.5-5.0); Alkaline Phosphatase 88 U/L (39-117); Anion Gap 18 (12-20); Aspartate Amino Transferase 29 U/L (5-31); Bilirubin Total 1.1 mg/dL (0.0-1.0); Blood Urea Nitrogen 9 mg/dL (9-16); C Reactive Protein 0.32 mg/dL (< or = 0.50); Calcium 9.9 mg/dL (8.4-10.2); Carbon Dioxide 16 mmol/L (22-29); Chloride 108 mmol/L (96-108); Cholesterol 186 mg/dL (<200); Creatinine Clr Calc Pharmacy 102.9; Estimated Glomerular Filt Rate > 60; Glucose Random 66 mg/dL (60-115); HDL Cholesterol 27 mg/dL (>40); LDL Cholesterol Calculated 138 mg/dL (<100); Potassium 3.6 mmol/L (3.3-5.1); Sodium 138 mmol/L (135-145); Total Protein 8.4 g/dL (6.5-8.0); Triglycerides 108 mg/dL (<150)
[2023-05-28 09:40] LABS: Insulin 13 uU/mL (2-29); TSH reflex Free T4 1.91 uIU/mL (0.32-4.0)
[2023-06-03] VITALS (18 sets, daily range): BP systolic 121–155; BP diastolic 73–105; PULSE 75–100; RESP 12–24; TEMP 36.3–37; O2SAT 97–100; BMI 34.5
[2023-06-03] MEDS: Lactated Ringers 1,000 ML 999 ML IV ×2 (06:24→06:25)
[2023-06-03 06:47] LABS: UPreg QC Valid YES; Urine Pregnancy NEGATIVE (NEGATIVE)
[2023-06-03] MEDS: Aprepitant 32 MG/4.4 ML VIAL IVPUSH (06:54)
--- NOTE | 2023-06-03 07:40 | MHC.SHP ---
Pre-Procedural Eval Section A - 24 Hr Update-Section A only Date of Service: 06/03/23 The patient is an INPATIENT: Yes The patient has been examined within 24 hours of the surgical procedure. The History & Physical has been completed within 30 days and I have reviewed it.: Yes Section B - Complete if H&P > 30 days Chief Complaint: Obesity Relevant Family History (Specify if Yes): No Relevant Social History: None Present Medications: None Medical History: No relevant PMH History of Previous Operations: No relevant previous surgery Allergies: Allergies Allergy/AdvReac Type Severity Reaction Status Date / Time metfomin AdvReac Severe Diarrhea Uncoded 06/03/23 06:17 Review of Systems Sugical H&P ROS: Negative: Constitution, Cardiovascular, Respiratory, Neurological, Psychiatric, Hem-Onc, Allergic/Immunologic, Gastrointestinal, Genitourinary, Musculoskeletal, Integumentary, Endocrine and Eyes/Ears/Nose/Throat Exam Surgical H&P Exam: Normal: HEENT, Normal: Heart, Normal: Lungs, Normal: Extremities, Normal: Abdomen, Normal: Skin and Normal: Neurological Plan Diagnosis/Plan: Unchanged I have reviewed the history and physical and performed a pertinent physical examination on my patient. No changes have occurred unless specified. Time Spent With Patient Time: Total time managing care of this patient today ____ minutes.
--- NOTE | 2023-06-03 07:41 | P.BOP_ITS ---
Brief Operative Note Date of Service: 06/03/23 Pre-op diagnosis: Severe obesity with comorbidities (see below) Post-op diagnosis: same Procedure: INITIAL PATIENT BMI ON PRESENTATION AT OUR OFFICE: 41.3 kg/m2 LAST BMI BEFORE SURGERY: 37 kg/m2 COMORBIDITIES: asthma, GERD, anxiety, back pain, PCOS, GERD ?The patient presented to the Weight Management Program with significant obesity that was negatively impacting the patient's comorbidities as listed above.? The program is a phased program with a special focus on preoperative medical weight management to promote substantial weight loss and prepare the patients for the second phase of the program: bariatric surgery. The patient participated in an intensive weekly lifestyle ?intervention and exercise program during which the patient ?has lost between the initial office visit and the last preoperative visit 24.4lbs, or 10.46% of initial actual body weight. It was deemed appropriate for the patient to now have bariatric surgery. In light of the current Covid-19 pandemic and the well documented strong association of obesity and increased risk of worse outcomes if infected with Covid-19 (REFERENCES: https://pubmed.ncbi.nlm.nih.gov/97253990/ ,? https ://pubmed.ncbi.nlm.nih.gov/86576542/ ), any delay in undergoing bariatric surgery may lead to the patient's worsening health condition and increased?risk of more severe Covid-19 disease if infected. In addition a recent?study from [facility] published in [facility] on 03/17/2021 ([email or web address]) found that, among patients with obesity, substantial weight loss achieved with surgery was associated with improved outcomes of COVID-19 infection. The findings suggest that obesity can be a modifiable risk factor for the severity of COVID-19 infection. In addition, the patient met the BMI-criteria for bariatric surgery based on the BMI on initial presentation. The patient should not be penalized for achieving such weight loss because ?it is not sustainable long-term without surgical intervention and it was achieved in preparation for bariatric surgery ?under my direction and based on my published research ([email or web address]).[email or web address] and? https://www.soard.org/article/[email or web address](45)50328-X/pdf ) ?that a 10% preoperative weight loss improves long-term weight loss after surgery and reduces perioperative complications.? Insurance carriers such as [facility] have endorsed my recommendations ?and have included in their policies criteria to include a 10% preoperative weight loss requirement. PROCEDURE: Esophago-gastroscopy, laparoscopic sleeve gastrectomy and laparoscopic gastropexy INDICATIONS: This is a 28 year-old female who was electively scheduled for laparoscopic, possibly open sleeve gastrectomy. The risks and complications of the procedure were discussed with the patient in advance, particularly the possibility of ; pulmonary embolism; staple line leak; bleeding; GERD; cardiac, pulmonary, or renal complications; as well as long-term problems such as insufficient weight loss, vitamin deficiency, strictures, or ulcers. The pa tient understood all the risks, and was in agreement to proceed with surgery. DESCRIPTION OF PROCEDURE: After informed consent was obtained from the patient, the patient was given preoperative antibiotics, and was transferred to the operating room. After successful induction of general anesthesia, pneumatic compression devices were placed on both lower extremities. An upper endoscopy was performed next. The oropharynx and esophagus appeared to be within normal limits. There was no diaphragmatic hernia present consistent with the findings of the preoperative upper GI. The stomach was entered. Then after all fluid and air were suctioned and the stomach was fully decompressed, the scope was withdrawn and secured in the mid esophagus. The patient was then prepped and draped in the usual sterile manner, and abdominal access was established at the right upper quadrant with the Elva technique. A 12 mm blunt port was inserted, and the abdomen was insufflated with CO2 to a pressure of 15 mmHg. Under direct visualization, additional ports were placed, specifically two 5 mm Versi-step ports to the left upper quadrant, and a 5 mm Versi-Step port to the right upper quadrant. 1% lidocaine plain was used to infiltrate all port sites as well as all fascia defects. Following that, the patient was placed in a steep reverse Trendelenburg position. An additional 5 mm port was placed to the right flank for the Mediflex retractor that was used to retract the left lobe of the liver. The gastro-esophageal fat pad was opened with the ultrasonic device (Thunderbeat, Olympus) and the anterior esophagus and hiatus were exposed. The angle of His was opened with the ultrasonic device the fundus of the stomach from any diaphragmatic and splenic attachments. I then opened the gastrocolic ligament between the transverse colon and the greater curvature of the stomach with the ultrasonic device to enter the lesser sac and facilitate the ligation of the short gastric vessels. I started at a mid-point along the greater curvature and using the Thunderbeat, all short gastric vessels were divided all the way to the angle of His until the left tereso was completely dissected at its entirety. I then divided the gastro-colic ligament distally to a distance of about 3-4 cm proximal to the pylorus. There were extensive congenital adhesions between the pancreas and posterior gastric wall. Those were lysed completely with the ultrasonic device. Adhesiolysis took approximately 45 min to complete. ? The stomach was then divided transversely with two Endo DIANE-45 purple and three DIANE-60 articulating purple loads using the [employer] stapler and loads. Every effort was made that the gastric sleeve had a tubular shape and an even caliber throughout. Once the sleeve resection was completed, the staple line of the gastric sleeve was reinforced with Hemoclips. The resected stomach was retrieved without difficulty from the Elva port. A gastropexy was then performed in order to prevent postoperative GERD and partial gastric volvulus. Several interrupted 2.0 Surgidac sutures were placed between the sleeve's staple line and the previously divided greater omentum and gastro-colic ligament using the Endo-Stitch device. ?An upper endoscopy was performed. There was no narrowing at the GE junction. The scope was easily advanced all the way to the pylorus which was clearly visualized. There was no narrowing anywhere and the sleeve's caliber was even throughout. The sleeve's staple line was inspected and there was no evidence of ischemia, bleeding or dehiscence. At that point the gastroscope was withdrawn from the patient?s mouth while we were decompressing the bowel and the stomach from any remaining air. I looked into the lesser sac to see how the sleeve was situating and it was situating well. There was no bleeding from the staple line, spleen, or short gastric vessels. The Mediflex retractor was removed, and the undersurface of the liver was inspected and there was no bleeding. The patient was placed in supine position. I closed the fascial defect of the 12 mm port site with a figure of eight #1 Polysorb suture. Then 30cc Ropivacaine plain with 10 mg of Dexamethasone were used to infiltrate the fascial closure as well as all skin incisions. A total of 7ml of Zynrelef was applied in the Cadena wound. At this point, the abdomen was deflated, all ports were removed under direct vision, and no bleeding was noted from any of the port sites. The skin incisions were irrigated with saline and were closed with 4-0 absorbable monofilament sutures. Steri-Strips and OpSites were used to cover all incisions. The patient was extubated and was transferred in stable condition to the recovery room for further care. I was present and performed all enrique parts of the procedure. Mr. Harris was the preschool teacher's assistant. There were no residents to assist with this case. Lon Whaley MD, PhD, FACS Surgeon: Michael Whaley MD Anesthesia: GETA, local and other (TAP block and 7ml Zynrelef) Was an High Pressure Operator used for this Procedure?: No High Pressure Operator: Chauncey Harris Estimated blood loss (mL): 10 IV fluids (mL): 2,500 Urine output (mL): 0 Pathology: other (Stomach) Condition: stable Disposition: PACU
--- NOTE | 2023-06-03 07:53 | P.PNGS_ITS ---
Subjective Subjective Date of Service: 06/04/23 Interval history: Feels well. Mild incisional pain. She is tolerating phase 1 bariatric diet Physical Exam 2 Vital Signs: Vital Signs: Last Vital Signs Temp 98.1 F 06/03/23 06:33 Pulse 97 06/03/23 06:33 Resp 18 06/03/23 06:33 BP 132/92 H 06/03/23 06:33 Pulse Ox 100 06/03/23 06:33 O2 Del Method Room Air 06/03/23 06:33 BMI result Body Mass Index 34.5 GI: Inspection: Yes normal to inspection, Yes incision (clean, dry and intact) and Yes obesity Palpation (GI): Soft to palpation Extrem: Right lower extremity: normal to inspection (no calf tenderness) L eft lower extremity: normal to inspection (no calf tenderness) Objective Data Active Medications Lactated Ringer's (Lr) 1,000 mls @ 999 mls/hr IV .Q1H1M MATHEW Stop: 06/03/23 08:00 Last Admin: 06/03/23 06:25 Dose: 999 mls/hr Documented By: OLGA Labs 06/04/23 06:03 06/04/23 06:03 Labs: Laboratory Results - last 24 hr 06/03/23 06:00 Urine Test NEGATIVE Procedures Date of Service Date of Service: 06/04/23 Progress Note: A&P Assessment and plan (1) Obesity: Status: Acute Assessment and Plan: s/p laparoscopic sleeve gastrectomy, lysis of adhesions and gastropexy Doing well Will check am labs and if OK the patient will be discharged home (2) BMI 37.0-37.9, adult: Status: Acute (3) Asthma: Status: Acute (4) Generalized anxiety disorder: Status: Acute (5) PCOS (polycystic ovarian syndrome): Status: Acute (6) Type 2 diabetes mellitus without complications: Status: Acute (7) GERD (gastroesophageal reflux disease): Status: Acute (8) Back pain: Status: Acute (9) S/P laparoscopic sleeve gastrectomy: Status: Acute (10) Congenital intra-abdominal adhesions: Status: Acute Time Spent With Patient Time: Total time managing care of this patient today ____ minutes. Quality Stroke Does the patient have a stroke diagnosis?: No VTE Prior VTE?: No VTE Risk Level:: Surgical - moderate VTE Device Contraindication: N/A - Device Ordered VTE Drug Contraindication: Treatment Not Indicated
--- NOTE | 2023-06-03 08:56 | HO.ANESPROP2 ---
HPI - Anesthesia Eval Consult details Narrative: 28 yo female for EGD, Laparoscopic Sleeve Gastrectomy, possible diaphragmatic hernia repair, possible ventral hernia repair, possible open PMFSH Active Problems Active Problems: All Active Problems (Updated 06/03/23 @ 07:18 by Bonnie Garcia MD) Back pain (Acute) GERD (gastroesophageal reflux disease) (Acute) Adjustment disorder, unspecified H. pylori infection (Acute) Vitamin A deficiency (Acute) Constipation (Acute) Vitamin B12 deficiency (Acute) Vitamin D deficiency (Acute) Morbid obesity (Acute) BMI 34.5 Generalized anxiety disorder (Acute) Metabolic syndrome (Acute) Asthma (Acute) Encounter for removal and reinsertion of Nexplanon (Acute) Septate uterus (Acute) Obesity (BMI 30-39.9) (Acute) Cervical cancer screening (Acute) Bulky or enlarged uterus (Acute) Encounter for surveillance of Nexplanon subdermal contraceptive (Acute) PVCs (premature ventricular contractions) (Acute) Hyperglycemia (Acute) Abnormal TSH (Acute) Type 2 diabetes mellitus without complications (Acute) Pre-diabetes (Acute) SOB (shortness of breath) on exertion (Acute) Intermittent palpitations (Acute) Well woman exam with routine gynecological exam (Acute) Hirsutism (Acute) Thinning hair (Acute) Folliculitis (Acute) PCOS (polycystic ovarian syndrome) (Acute) Past Medical History Medical History (Updated 06/03/23 @ 09:04 by Bonnie Garcia MD) Right leg pain COVID-19 Back pain Obesity Morbid obesity Generalized anxiety disorder Metabolic syndrome Abnormal TSH Pre-diabetes HTN (hypertension) PCOS (polycystic ovarian syndrome) Headache Vertigo Bronchitis delivery delivered Asthma Family History Family History Father No problems noted. 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 [employer] Current occupational exposures/hazards: No Gender identity: Female Cognitive needs: No Hearing needs: No Vision needs: No Meds Allergies Allergy/AdvReac Type Severity Reaction Status Date / Time metfomin AdvReac Severe Diarrhea Uncoded 06/03/23 06:17 Home Medications Medication Instructions Recorded Confirmed Last Taken Type etonogestrel 68 mg subdermal subdermal 01/02/20 04/12/23 Unknown History implant (Nexplanon) Exam Height,Weight and Vital Signs: Height 5 ft 3 in Weight 88.451 kg Last Vital Signs Temp 98.1 F 06/03/23 06:33 Pulse 97 06/03/23 06:33 Resp 18 06/03/23 06:33 BP 132/92 H 06/03/23 06:33 Pulse Ox 100 06/03/23 06:33 O2 Del Method Room Air 06/03/23 06:33 Pertinent Lab Results Pertinent Lab Results: Laboratory Tests 05/28/23 05/28/23 06/03/23 07:58 08:02 06:00 WBC 6.5 RBC 5.22 Hgb 15.3 Hct 45.2 MCV 86.6 MCH 29.3 MCHC 33.8 RDW 12.9 Plt Count 218 MPV 11.0 Immature Gran % (Auto) 0.2 Neut % (Auto) 56.8 Lymph % (Auto) 34.6 [place] % (Auto) 5.9 Eos % (Auto) 2.0 Baso % (Auto) 0.5 Lymph # (Auto) 2.2 [place] # (Auto) 0.4 Eos # (Auto) 0.1 Baso # (Auto) 0.0 Abs Immat Gran (auto) 0.01 Absolute Neuts (auto) 3.7 Absolute Nucleated RBC 0.000 Nucleated RBC % (auto) 0.0 PT 14.0 H INR 1.2 H APTT 33.4 Sodium 138 Potassium 3.6 Chloride 108 Carbon Dioxide 16 L Anion Gap 18 BUN 9 Creatinine 0.88 Estim Creat Clear Calc 102.9 Estimated GFR > 60 Random Glucose 66 Estimat Average Glucose 94 Hemoglobin A1c % 4.9 Insulin Level 13 Calcium 9.9 D Total Bilirubin 1.1 H AST 29 ALT 40 H Alkaline Phosphatase 88 C-Reactive Protein 0.32 Total Protein 8.4 H Albumin 4.9 Triglycerides 108 Cholesterol 186 LDL Cholesterol, Calc 138 H HDL Cholesterol 27 L TSH 1.91 Urine Test NEGATIVE Blood Type O Positive Antibody Screen NEGATIVE Airway Mallampati Class: II TM Dist: >3cm Neck ROM: Full Loose/Missing/Broken Teeth: No (Denies broken or loose teeth) Heart: RRR Lungs: CTAB Assessment and Plan Assessment Anesthesia Assessment: Anesthesia Plan Discussed and Chart Reviewed Final Anesthetic Review Family History of Problems with Anesthesia: No History of Problems with Anesthesia: No NPO: Yes ASA Class: III Final Preanesthetic Review: No Changes in Pt Med Stat, Meds/Allgs Chart Reviewed, Consent Obtained/Reviewed and Anes Risks/Benef Reviewed Patient Risk: Intermediate Procedure Risk: Intermediate Assessment/Block/Sedation in SS: Assess/Block/Sedation-SS Anesthetic Plan Anesthetic Plan: GA Disposition: Standard PACU and Inp. Admit - Standard Bed
--- NOTE | 2023-06-03 10:17 | PM.DS ---
DS: Providers Provider Date of Service: 06/04/23 Date of admission: 06/03/23 06:00 Primary care physician: Faraz Alaniz MD DS: Diagnosis Discharge Diagnosis (1) Obesity: Status: Acute (2) BMI 37.0-37.9, adult: Status: Acute (3) Asthma: Status: Acute (4) Generalized anxiety disorder: Status: Acute (5) PCOS (polycystic ovarian syndrome): Status: Acute (6) Type 2 diabetes mellitus without complications: Status: Acute (7) GERD (gastroesophageal reflux disease): Status: Acute (8) Back pain: Status: Acute DS: Summary Hospital Course Hospital Course: ADMITTING DIAGNOSIS: obesity, htn, anxiety, asthma, pcos ? DISCHARGE DIAGNOSIS: same, s/p laparoscopic sleeve gastrectomy ? PAST SURGICAL HISTORY: cesarian section ? PROCEDURE: upper endoscopy, laparoscopic sleeve gastrectomy ? DISCHARGE SUMMARY: ? History of Present Illness: ? The patient is a?28 year-old woman with a BMI of?41.3 kg/m2 and associated co-morbidities as described above. The patient had extensive work-up,lost?38.2 lbs preoperatively and was electively scheduled for laparoscopic, possible open sleeve gastrectomy and gastropexy. Risks and complications of the surgery were discussed with the patient in advance, particularly the possibility of , pulmonary embolism, anastomotic leak, bleeding, bowel injury, GERD, cardiac, renal or pulmonary complications. The patient understood all the risks and was in agreement with the surgical plan. ? Hospital Course: ? The patient underwent an uneventful laparoscopic sleeve gastrectomy with gastropexy on the day of admission. Postoperatively, the patient was transferred to the surgical floor. The patient received IV Acetaminophen and IV dilaudid for pain control. Patient was started on bariatric phase 1 diet POD #0. On postoperative day one, the patient was feeling well without nausea, vomiting, fevers, or tachycardia. The patient had some mild incisional pain and the abdomen was soft. ? On the morning of postoperative day one, the patient was continued on 1 ounce of water or ice every half hour. During the day, the patient did fairly well, having some incisional pain, but able to ambulate adequately and to tolerate liquids well. ? Since the patient is doing well, we decided that the patient was ready to be discharged. The patient was given instructions to follow-up with me next week and to call my office for any fever over 101, persistent abdominal pain, nausea, vomiting, GERD, symptoms of DVT such as calf tenderness, or leg swelling, or pulmonary embolism such as chest pain or shortness of breath. The patient was also instructed to drink 40-60 ounces of liquids per day using the 1-ounce cups. The patient had been given prescriptions for Tylenol for pain, Zofran prn for nausea, and pantoprazole and carafate previously. The patient was encouraged to ambulate and use the incentive spirometer. The patient was allowed to shower, but no baths, and encouraged to stay active at home. All of these instructions were given to the patient personally. All questions were answered and the patient understood all instructions, the instructions were also given to the patient in print. Time Attestation Discharge Coordination Time (in mins): 25 Quality: Safe Use of Opioids Does Pt have an Active Cancer Diagnosis on the Problem List?: No Quality: Stroke Does the patient have a stroke diagnosis?: No Physical Exam Vital Signs: Vital Signs: Last Vital Signs Temp 98.1 F 06/03/23 06:33 Pulse 97 06/03/23 06:33 Resp 18 06/03/23 06:33 BP 132/92 H 06/03/23 06:33 Pulse Ox 100 06/03/23 06:33 O2 Del Method Room Air 06/03/23 06:33 BMI result Body Mass Index 34.5 DS: Data Data Completed and Pending Pending studies at discharge: Pending at discharge 06/03/23 09:20 Surgical [PTH] Routine 06/03/23 09:33 Surgical [PTH] Routine Labs on day of discharge: Laboratory Results - last 24 hr 06/03/23 06:00 Urine Test NEGATIVE Discharge Plan Discharge Anticipated Discharge Date/Time: 06/04/23 10:00 Patient Disposition: Home, Self-Care Discharge Diagnosis: s/p laparoscopic sleeve gastrectomy Referrals: Faraz Alaniz MD [Primary Care Provider] - 1 Week Discharge Medications: Continued (DME) lancets [FreeStyle Lancets] 28 gauge misc See Rx Instructions .Route Qty: 100 8RF Rx Instructions: test once daily albuterol sulfate 90 mcg/actuation HFA aerosol inhaler 2 puff inhalation Q6H PRN (Reason: shortness of breath or wheezing) Qty: 8.5 5RF ondansetron 4 mg tablet,disintegrating 4 mg PO Q12H PRN (Reason: nausea/vomiting) (DME) blood sugar diagnostic Strip See Rx Instructions .ROUTE .MEDSUPPLY Qty: 100 1RF Rx Instructions: twice a day (DME) blood-glucose meter Kit See Rx Instructions .ROUTE .MEDSUPPLY Qty: 1 0RF Rx Instructions: As directed Nexplanon 68 mg implant subdermal pantoprazole 40 mg tablet,delayed release (DR/EC) 40 mg PO DAILY Qty: 90 0RF Discontinued cholecalciferol (vitamin D3) 125 mcg (5,000 unit) capsule 125 mcg PO DAILY Qty: 90 0RF mecobalamin (vitamin B12) 1,000 mcg tablet,disintegrating 1,000 mcg sublingual DAILY Qty: 90 0RF Rx Instructions: place tablet under tongue and allow to dissolve for at least30 secs before swallowing vitamin A palmitate 3,000 mcg (10,000 unit) capsule 10,000 unit PO DAILY Qty: 60 0RF Discharge Orders: Discharge Order (Routine); Ordered 06/04/23 Ordered By: Michael Whaley Activity on Discharge: No heavy lifting Stand Alone Forms: Patient Portal Discharge page Care Plan Goals: weight loss Health Concerns: obesity Plan of Treatment: No tub baths, sex or returning to work until discussed at first post op appointment. No exercise, alcohol, tobacco or illegal drug use. Continue to use incentive spirometer hourly while awake. Walk in home for 5- 10 minutes every 2 hours during the first week. Follow all instructions in the bariatric handbook and call with any questions.Discharge Instructions 1. Please call your doctor or come back to the emergency room should any new symptoms arise. 2. You will receive a courtesy call from [facility] 24-48 hours after discharge. 3. Activity: abstain from alcohol, practice limited stair climbing, no bending, no driving, no exercise, no illicit substances, no lifting, no sex, no tub bath, no work. 4. Diet: continue as discussed with Dr. Whaley. 5. Dressing Change/Wound Care: Your incision is covered by clear bandages and guaze underneath. If the area is tender, you may apply an ice pack for short intervals (no more than 20 minutes on, followed by at least 20 minutes off). Do not apply heat. Do not use creams, lotions, or topical antibiotics unless instructed to do so by your surgeon. These can cause infection or allergic reaction. 6. Call your doctor if: - Your temperature exceeds 101.5 F - You experience excessive pain or swelling - You have an unexpected reaction to medication - You have excessive bleeding - You experience continued vomiting/nausea - Your incision begins to separate - Your incision shows signs of infection such as increased redness, swelling, excessive pain, heat, or drainage (light blood or clear fluid is normal) 7. General instructions: No lifting greater than 5 lbs for 1 week and not more than 20lbs the next 3?weeks. No driving until seen at the office in 5-7 days after surgery. If you do not move your bowels in the next 2 days, please tell?Dr. Whaley. Please walk around your home every hour or two to prevent blood clots from forming in your legs. You do not need to wake from sleeping to walk. Please sleep in a bed or couch to prevent kinking at the hips and knees. Please take your incentive spirometer (your lung haul driver) home with you and use it for the next few days to prevent pneumonia. You may shower, no hot tubs, baths or swimming pools.?Please follow the post op diet instructions you are?given by Dr Whaley? and text me daily at 5-6pm for an update.?If you have any issues or concerns or questions please communicate this to him via text.? The Celebrate shakes have all of the bariatric vitamins you need if you consume these shakes. If you are drinking other protein shakes, you will need to purchase the Celebrate multivitamins and calcium that are available in the hospital gift shop on the first floor of the [facility].??Do not take anything without first discussing with Dr Whaley. Please make sure you are consuming at least 40 ounces of fluids per day starting the?day AFTER your discharge from the hospital. Always drink 1-2 ml per minute using the 5ml?syringe. If you drink faster you may experience?bloating,?gas pain, burping, nausea or heartburn. In that case please slow down your pace and use the syringe to?understand better the?proper?pace and volume of drinking. Do not hesitate to contact the office with any questions at . The patient's medical history has been reviewed and they are considered low risk for post op DVT and therefore DVT prophylaxis is not considered necessary. Travel after surgery was reviewed. The patient has not disclosed any travel plans during the first 30 days after surgery and they have been advised that within the first 30 days after surgery any bus, plane, train or car travel over 2 hours in duration is contraindicated due to the possibility of developing blood clots from immobility. Any travel, needs to include periods of ambulation of 10 minutes in duration every 2 hours.? The patient was instructed to discuss any plans for travel during this period with their bariatric surgeon. Assessment: stable s/p laparoscopic sleeve gastrectomy
[2023-06-03 10:51] LABS: Hematocrit 40.7 % (37.0-47.0); Hemoglobin 14.5 g/dl (12.0-16.0)
[2023-06-03 11:15] LABS: Anion Gap 17 (12-20); Blood Urea Nitrogen 4 mg/dL (9-16); Calcium 8.9 mg/dL (8.4-10.2); Carbon Dioxide 16 mmol/L (22-29); Chloride 107 mmol/L (96-108); Creatinine Clr Calc Pharmacy 93.1; Estimated Glomerular Filt Rate > 60; Glucose Random 105 mg/dL (60-115); Potassium 3.5 mmol/L (3.3-5.1); Sodium 136 mmol/L (135-145)
[2023-06-03] MEDS: Lactated Ringers 1,000 ML 100 ML IVCONT ×2 (13:34→22:43)
[2023-06-03] MEDS: ceFAZolin Sodium/Dextrose,Iso 2 GM/50 ML PIGGYBACK IV (14:13)
--- NOTE | 2023-06-03 14:47 | PHA.MEDREC ---
Pharmacy Consult ? Medication Reconciliation Pharmacy has completed the medication reconciliation. Spoke to patient at bedside
[2023-06-03] MEDS: Acetaminophen 1,000 MG/100 ML PIGGYBACK 16.7 MG IV ×2 (15:15→20:44)
[2023-06-03] MEDS: 0.9 % Sodium Chloride Flush 3 ML SYRINGE IVFLUSH (15:28)
[2023-06-03] MEDS: HYDROmorphone HCl 0.5 MG/0.5 ML SYRINGE 0.25 MG IVPUSH (16:58)
[2023-06-03] MEDS: Famotidine/PF 20 MG/2 ML VIAL IVPUSH (20:44)
[2023-06-04] MEDS: Acetaminophen 1,000 MG/100 ML PIGGYBACK 16.7 MG IV (02:26)
[2023-06-04 03:05] VITALS: BP 115/80; PULSE 80; RESP 16; TEMP 36.6; O2SAT 99
[2023-06-04 06:13] LABS: MANUAL DIFF FLAG NO
[2023-06-04 06:39] LABS: Anion Gap 18 (12-20); Blood Urea Nitrogen 3 mg/dL (9-16); Calcium 9.4 mg/dL (8.4-10.2); Carbon Dioxide 14 mmol/L (22-29); Chloride 110 mmol/L (96-108); Creatinine Clr Calc Pharmacy 76.1; Estimated Glomerular Filt Rate 56; Glucose Random 112 mg/dL (60-115); Potassium 3.6 mmol/L (3.3-5.1); Sodium 138 mmol/L (135-145)
[2023-06-04 06:40] LABS: Basophils Percent Auto 0.1 % (0-2); Eosinophils Percent Auto 0.1 % (0-4); Hematocrit 37.3 % (37.0-47.0); Hemoglobin 13.1 g/dl (12.0-16.0); Imm Gran Abs Auto 0.06 X10*3/uL (0.00-0.03); Imm Gran Pct Auto 0.7 % (0.0-0.4); Lymphocytes Absolute Auto 0.9 X10*3/uL (1.2-4.9); Lymphocytes Percent Auto 11.1 % (20-40); Mean Corpuscular HGB Conc 35.1 g/dl (31.0-35.0); Mean Corpuscular Volume 85.4 fL (80.0-98.0); Mean Platelet Volume 11.5 fL (9.4-12.3); Monocytes Absolute Auto 0.6 X10*3/uL (0.1-1.2); Monocytes Percent Auto 7.4 % (2-11); Neutrophils Absolute Auto 6.8 x10*3/uL (2.0-8.3); Neutrophils Percent Auto 80.6 % (45-73); Platelet Count 206 X10*3/uL (160-400); Red Blood Count 4.37 X10*6/uL (4.20-5.50); Red Cell Distribution Width 13.5 % (11.0-16.0); White Blood Count 8.5 X10*3/uL (4.8-10.8)
[2023-06-04 07:30] VITALS: BP 143/92; PULSE 72; RESP 18; TEMP 36.9; O2SAT 97
--- NOTE | 2023-06-04 09:25 | MHC.CM.PN ---
CM MET WITH PT AT BEDSIDE. 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 PCP DR. BROWN. +HCP DP: PT HAS BEEN MEDICALLY CLEARED FOR DC HOME, NO SERVICES. PT HAS OWN RIDE HOME
--- NOTE | 2023-06-04 10:22 | HO.POSTANES ---
Post Anesthesia Evaluation Post Anesthesia Evaluation Date of Service: 06/04/23 Vital Signs: Vital Signs Temp Pulse Resp BP Pulse Ox O2 Del Method 06/04/23 07:30 98.4 F 72 18 143/92 H 97 Room Air 06/04/23 03:05 97.8 F 80 16 115/80 99 Room Air Anesthesia: General Endotracheal-GETA Mental Status: Awake Pain Control: Satisfactory Nausea/Vomiting: None Hydration: Adequate Anesthesia-Related Issues: No Anes. Related Issues
== END 2023-06-04 09:38 | disposition home or self-care (01) | DRG 403 ==
LOC: HO.SSSA 10:21 → HO.S3 12:57
PROVIDERS: Anesthesiology; Physician Assistant Surgical; Admitting Provider Surgery; PCP Internal Medicine; Visit Provider Surgery
PROC: 0DB64Z3 Excision of Stomach, Percutaneous Endoscopic Approach, Vertical (ICD-10-PCS; CPT 43845; principal; 2023-06-03 07:30)
DX: E66.01 Morbid (severe) obesity due to excess calories (principal); Q43.3 Congenital malformations of intestinal fixation; E11.9 Type 2 diabetes mellitus without complications; E28.2 Polycystic ovarian syndrome; K21.9 Gastro-esophageal reflux disease without esophagitis; M54.9 Dorsalgia, unspecified; Z68.37 Body mass index [BMI] 37.0-37.9, adult; J45.909 Unspecified asthma, uncomplicated; Z79.899 Other long term (current) drug therapy
CPT/HCPCS: 36415; 80048; 80053; 80061; 81025; 83036; 83525; 84443; 85014; 85018; 85025; 85610; 85730; 86140; 86850; 86900; 86901; 88304; 88305; 88307; 88342; A4649; C9088; C9145; J0131; J0690; J1100; J1170; J2250; J2405; J2704; J2795; J3010; J7120

== ENCOUNTER → 2023-06-03 06:00 | Outpatient (BNV) | payer OTHER, SELFPAY | PROVIDERS: Admitting Provider Surgery; PCP Internal Medicine; Visit Provider Surgery | DX: E66.9 Obesity, unspecified (principal); Z68.37 Body mass index [BMI] 37.0-37.9, adult; K66.0 Peritoneal adhesions (postprocedural) (postinfection) | CPT/HCPCS: 43659; 43775; 99024 ==

== ENCOUNTER 2023-06-08 10:24 | Outpatient (AMB) | payer OTHER, SELFPAY ==
--- NOTE | 2023-06-08 10:49 | MHC.OFFVISWM ---
Intake VS Expanded 06/08/23 11:02 BP 139/81 Blood Pressure Location Rt brachial Blood Pressure Position Sitting Pulse 78 Pulse Source Pulse Oximeter Temp 97.9 F Temperature Source Tympanic Pulse Oximetry 97 Oxygen Delivery Method Room Air Height 5 ft 3 in Weight 190 lb 12.8 oz BMI 33.8 Body Fat % 42.8 Body Fat Mass 81.6 Fat Free Mass 109.2 Visceral Fat Rating 8.0 Body Water % 41.2 Body Water Mass 78.4 Muscle Mass/Score 103.6 Basal Metabolic Rate/Score 1,558 Intake Visit Reasons: (OV) 5 Days PO LSG 06/03/23 Supervisor Agency Appointments Required: No Allergies metfomin Adverse Reaction (Severe, Uncoded 06/03/23 06:17) Diarrhea Medication List - Last Reconciled 06/08/23 by THANIA Linn albuterol sulfate 90 mcg/actuation 2 puffs inhalation Q6H PRN blood sugar diagnostic twice a day blood-glucose meter As directed etonogestrel (Nexplanon) subdermal fondaparinux 2.5 mg subcut DAILY lancets (FreeStyle Lancets) test once daily pantoprazole 40 mg PO DAILY HPI HPI Comments History of Present Illness Details Try 8-year-old female returns to the office today in follow-up. She is 5 days status post sleeve gastrectomy performed by Dr. Whaley on 06/03/2023. She complains of a white coating to her tongue over the last several days and feelings of lightheadedness with increased activity. Her blood pressure here was stable at 139/81. She states that she has been drinking 3 celebrate 4 in 1 shakes with 1 scoop each in 8 oz of almond milk and a total of 26 oz of fluid per day. We discussed the importance of drinking 40 oz of fluids per day or more. She states that she has been anxious at night and her sleep schedule has been disrupted. She reports moving her bowels and some right-sided pain. She has been taking Tylenol once per day and has been using her inhaler 1-2 times daily. She has not been washing out her mouth after the use of an inhaler. She continues on the Arixtra, day 3 of 10 [facility] Medical History (Updated 06/08/23 @ 11:32 by THANIA Linn) Right leg pain COVID-19 Back pain Obesity Morbid obesity Generalized anxiety disorder Metabolic syndrome Abnormal TSH Pre-diabetes HTN (hypertension) PCOS (polycystic ovarian syndrome) Headache Vertigo Bronchitis delivery delivered Asthma Surgical History (Updated 06/03/23 @ 10:21 by THANIA Linn) History of Family History Father No problems noted. Mother Asthma Family/Other Asthma Maternal Grandmother Breast cancer Other Mental health disorder Social History Household Members: Family Household Members Other:: son age 10 Housing: House Are you a primary child care team lead to a significant other at home: Yes (son age 10, supportive mother lives next door) Do you presently have visiting nurse or other home services: No 75 years or older and lives alone: No Alcohol intake: never Patient Tobacco Use Status: Never used Tobacco e-Cigarette/Vaping Use: Never Used Second Hand Smoke Exposure: No service: No Current occupational status: employed 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 Original weight on 04/12/2023 was 233.2 pounds and op weight was 195 pounds. Be sure to text Dr Whaley exactly 1 week after surgery your weight from your home scale so he can adjust your meal plan. Continue meal plan until f/u brianna Grossman in 2 weeks May shower, no submersion in bath for another week Continue abdominal binder with activity and exercise for the next 2 weeks. Exercise prior to surgery was treadmill, may resume No abdominal exercises for 6 weeks post operatively Will be emailed link to post op video for review Reminded of the pace of drinking, 2 mL per minute, 1 oz/15 min. Encouraged to increase fluid intake to 40 oz daily (2) Thrush, oral: Code(s): B37.0 - Candidal stomatitis Plan: nystatin qid x 7 dyas Medications: New nystatin swish and swallow 200,000 units (2 mL) PO QID 56 mL 0RF 7 days Coding Level of Care Code Global (61862) Diagnoses S/P laparoscopic sleeve gastrectomy Z98.84 Thrush, oral B37.0
[2023-06-08 11:02] VITALS: BP 139/81; PULSE 78; TEMP 36.6; O2SAT 97; BMI 33.8
== END 2023-06-08 11:34 | disposition home or self-care (01) ==
PROVIDERS: PCP Internal Medicine; Visit Provider Physician Assistant Surgical
DX: Z98.84 Bariatric surgery status (principal); B37.0 Candidal stomatitis
CPT/HCPCS: 99024

== ENCOUNTER → 2023-06-08 10:24 | Outpatient (BNVA) | payer OTHER, SELFPAY | PROVIDERS: PCP Internal Medicine; Visit Provider Physician Assistant Surgical | DX: Z98.84 Bariatric surgery status (principal); B37.0 Candidal stomatitis | CPT/HCPCS: 99212 ==

== ENCOUNTER 2023-06-22 12:41 | Outpatient (AMB) | payer OTHER, SELFPAY ==
--- NOTE | 2023-06-22 12:50 | MHC.OFFVISWM ---
Intake VS Expanded 06/22/23 12:57 BP 113/72 Blood Pressure Location Rt brachial Blood Pressure Position Sitting Pulse 78 Pulse Source Pulse Oximeter Temp 96.4 F L Temperature Source Tympanic Pulse Oximetry 97 Oxygen Delivery Method Room Air Height 5 ft 3 in Weight 185 lb BMI 32.8 Body Fat % 39.9 Body Fat Mass 73.8 Fat Free Mass 111.2 Visceral Fat Rating 7.0 Body Water % 43.3 Body Water Mass 80.0 Muscle Mass/Score 105.4 Basal Metabolic Rate/Score 1,569 Intake Visit Reasons: (OV) PO LSG 06/03/23 Fibre Optic Cable Splicer Required: No Allergies metfomin Adverse Reaction (Severe, Uncoded 06/03/23 06:17) Diarrhea Medication List - Last Reconciled 06/22/23 by THANIA Linn albuterol sulfate 90 mcg/actuation 2 puffs inhalation Q6H PRN blood sugar diagnostic twice a day blood-glucose meter As directed etonogestrel (Nexplanon) subdermal lancets (FreeStyle Lancets) test once daily nystatin 200,000 units (2 mL) PO QID 7 days pantoprazole 40 mg PO DAILY sucralfate 10 mL PO BID HPI HPI Comments History of Present Illness Details This?a?28?yo female who is s/p LSG without hiatal hernia repair on?06/03/2019. Presents for approximately 3 week post op visit. Weight today is 185 pounds, with a BMI of 32.8. There has been a 48.2 pound weight loss,(initial weight 233.2 pounds) since starting the program on 04/12/2023 reflecting a 20.6 % total body weight loss and a weight loss of 10 pounds since surgery (operative weight 195 pounds) reflecting a 9.4% TBWL since surgery. No complaints of nausea, emesis, abdominal pain or reflux. Reports infrequent but normal bowel movements every 4-5 days and uses stool softeners regularly. Original weight on 04/12/2023 was 233.2 pounds and op weight was 195 pounds. Present meal plan includes: celebrate 4 in 1 1 scoop, 2 scoops, 1 scoop in 8 oz almond milk, 8-10, 11-1, 2-4 ZP bar 5-8 drinking 32 oz water ? Exercise routine includes: treadmill, 300 calories, daily [facility] Medical History (Updated 06/17/23 @ 05:33 by Background Daemon) H. pylori infection Encounter for removal and reinsertion of Nexplanon Annual physical exam Obesity (BMI 35.0-39.9 without comorbidity) Encounter for surveillance of Nexplanon subdermal contraceptive Folliculitis Routine screening for STI (sexually transmitted infection) Well woman exam with routine gynecological exam Right leg pain COVID-19 Back pain Obesity Morbid obesity Generalized anxiety disorder Metabolic syndrome Abnormal TSH Pre-diabetes HTN (hypertension) PCOS (polycystic ovarian syndrome) Headache Vertigo Bronchitis delivery delivered Asthma Surgical History (Updated 06/17/23 @ 05:33 by Background Daemon) History of Family History Father No problems noted. Mother Asthma Family/Other Asthma Maternal Grandmother Breast cancer Other Mental health disorder Social History Household Members: Family Household Members Other:: son age 10 Housing: House Are you a primary auto care center manager to a significant other at home: Yes (son age 10, supportive mother lives next door) Do you presently have visiting nurse or other home services: No 75 years or older and lives alone: No Alcohol intake: never Patient Tobacco Use Status: Never used Tobacco e-Cigarette/Vaping Use: Never Used Second Hand Smoke Exposure: No service: No Current occupational status: employed Current occupation: [employer] service at [employer] Current occupational exposures/hazards: No Gender identity: Female Cognitive needs: No Hearing needs: No Vision needs: No Female Reproductive History Menstrual Age of Menarche: 8 Physical Exam HEENT Teeth and gingiva: other (Significantly decreased whitish coating) GI Other: Incision clean, dry, intact. Assessment & Plan Assessment & Plan (1) S/P laparoscopic sleeve gastrectomy: Code(s): Z98.84 - Bariatric surgery status Plan: Overall, making progress. We will continue with current meal plan. Encouraged to add in stationary bike and elliptical as she has these machines at home. We will give 1 more week of nystatin for oral thrush which has significantly improved. She does complain of constipation and senna has been ordered as well. She will contact me with any further questions or concerns. Return to the office 3 weeks. Medications: New sennosides (senna) 17.2 mg (2 x 8.6 mg) PO BEDTIME 90 days PRN 120 tabs 1RF constipation Refilled nystatin swish and swallow 200,000 units (2 mL) PO QID 7 days 56 mL 0RF Coding Level of Care Code Global (99532) Diagnoses S/P laparoscopic sleeve gastrectomy Z98.84
[2023-06-22 12:57] VITALS: BP 113/72; PULSE 78; TEMP 35.8; O2SAT 97; BMI 32.8
== END 2023-06-22 13:21 | disposition home or self-care (01) ==
PROVIDERS: PCP Internal Medicine; Visit Provider Physician Assistant Surgical
DX: Z98.84 Bariatric surgery status (principal)
CPT/HCPCS: 99024

== ENCOUNTER → 2023-06-22 12:41 | Outpatient (BNVA) | payer OTHER, SELFPAY | PROVIDERS: PCP Internal Medicine; Visit Provider Physician Assistant Surgical | DX: Z48.815 Encounter for surgical aftercare following surgery on the digestive system (principal); Z98.84 Bariatric surgery status | CPT/HCPCS: 99212 ==

== ENCOUNTER 2023-06-24 10:48 | Outpatient (AMB) | payer OTHER, SELFPAY ==
--- NOTE | 2023-06-24 10:53 | A.OFFPC_ITS ---
Vital Signs 06/24/23 10:56 Height 5 ft 3 in Weight 188 lb 2 oz BMI 33.3 BP 120/64 Blood Pressure Location Lt brachial Position Sitting Pulse 60 Pulse Source Pulse Oximeter Pulse Oximetry (%) 97 Oxygen Delivery Method Room Air Intake Visit Reasons: Follow up from surgery, anxiety Intake Note: Patient is here to follow up on Anxiety and post op from Laparoscopic sleeve gastrectomy. Spinning Machine Operator Required: No Magnetic Resonance Imaging Coordinator: Not Required per policy Accompanied by: Self / Same As Patient Allergies metfomin Adverse Reaction (Severe, Uncoded 06/24/23 10:56) Diarrhea Medication List - Last Reconciled 06/25/23 by Faraz Alaniz MD albuterol sulfate 90 mcg/actuation 2 puffs inhalation Q6H PRN blood sugar diagnostic twice a day blood-glucose meter As directed etonogestrel (Nexplanon) subdermal lancets (FreeStyle Lancets) test once daily nystatin 200,000 units (2 mL) PO QID 7 days pantoprazole 40 mg PO DAILY polyethylene glycol 3350 17 grams PO DAILY sennosides (senna) 17.2 mg (2 x 8.6 mg) PO BEDTIME PRN 90 days sucralfate 10 mL PO BID Tobacco use date assessed: 06/24/23 Dental Screening Dental Screen Date: 06/24/23 Did you have a dental visit in the last 12 months?: No Did you have a dental problem in the last 6 months where you did not have access to dental care?: No Was dental information given to patient?: Patient has dentist HPI Follow up from surgery, anxiety HPI Details 28-year-old female presents to the offic e to discuss her chronic medical conditions. Patient had a sleeve gastrectomy in May. Subsequently she has lost weight using the portion control and nutrition supplements. Patient has lost weight from 235 lb to 188 lb. Since surgery, patient has become increasingly anxious with crying spells and feeling nervous. She has episodes of panic. Not sleeping well at night. [facility] Medical History H. pylori infection Encounter for removal and reinsertion of Nexplanon Annual physical exam Obesity (BMI 35.0-39.9 without comorbidity) Encounter for surveillance of Nexplanon subdermal contraceptive Folliculitis Routine screening for STI (sexually transmitted infection) Well woman exam with routine gynecological exam Right leg pain COVID-19 Back pain Obesity Morbid obesity Generalized anxiety disorder Metabolic syndrome Abnormal TSH Pre-diabetes HTN (hypertension) PCOS (polycystic ovarian syndrome) Headache Vertigo Bronchitis delivery delivered Asthma Surgical History History of gastric surgery History of Family History Father No problems noted. Mother Asthma Family/Other Asthma Maternal Grandmother Breast cancer Other Mental health disorder Social History Household Members: Family Household Members Other:: son age 10 Housing: House Are you a primary child care counselor to a significant other at home: Yes (son age 10, supportive mother lives next door) Do you presently have visiting nurse or other home services: No 75 years or older and lives alone: No Alcohol intake: never Patient Tobacco Use Status: Never used Tobacco e-Cigarette/Vaping Use: Never Used Second Hand Smoke Exposure: No service: No Current occupational status: employed 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 1. Little interest or pleasure in doing things: not at all 2. Feeling down, depressed, or hopeless: not at all 3. Trouble falling or staying asleep, or sleeping too much: not at all 4. Feeling tired or having little energy: not at all 5. Poor appetite or overeating: not at all 6. Feeling bad about yourself - or that you are a failure or have let yourself or your family down: not at all 7. Trouble concentrating on things, such as reading the newspaper or watching television: not at all 8. Moving or speaking so slowly that other people could have noticed. Or the opposite - being so fidgety or restless that you have been moving around a lot more than usual: not at all 9. Thoughts that you would be better off or of hurting yourself in some way: not at all Total score: 0 Depression Screening Interpretation: Negative Depression Screening Done: Yes Source: Developed by Drs. Alessio Gómez, Lizzeth Gao, Deion Adhikari and colleagues, with an educational jyothi from [employer]. Thrive Questionnaire Date Thrive assessed: 06/04/23 AUDIT C Alcohol Use Questionnaire (AUDIT-C) 1. How often do you have a drink containing alcohol?: Never Total Score: 0 RAY-7 AMB Questionnaire RAY-7 Date RAY - 7 assessed: 06/24/23 Feeling nervous, anxious, or on edge: 3 = Nearly every day Not being able to stop or control worryin = Nearly every day Worrying too much about different things: 3 = Nearly every day Trouble relaxin = Nearly every day Being so restless that it is hard to sit still: 0 = Not at all Becoming easily annoyed or irritable: 0 = Not at all Feeling afraid as if something awful might happen: 1 = Several days Total RAY-7 score (0-4 normal; 5-9 mild; 10-14 moderate; 15-21 severe): 13 Source: Developed by Drs. Alessio Gómez, Lizzeth Gao, Deion Adhikari and colleagues, with an educational jyothi from [employer]. Physical exam (Primary Care) Vital Signs: Last Vital Signs Pulse 60 06/24/23 10:56 BP 120/64 06/24/23 10:56 Pulse Ox 97 06/24/23 10:56 Oxygen Delivery Method Room Air 06/24/23 10:56 BMI result Body Mass Index 33.3 Tobacco/Smoking Status: Tobacco use Status Tobacco use date assessed 06/24/23 06/24/23 11:07 Patient Tobacco Use Status Never used Tobacco 06/24/23 11:07 Tobacco use type 11/05/22 15:25 e-Cigarette/Vaping Use Never Used 06/24/23 11:07 PHQ-9: PHQ-9 Score PHQ-9: Total score 0 06/24/23 11:07 Depression Screening Interpretation: Negative Thrive Assessment: Date of Thrive Assessment Date Thrive assessed 06/04/23 06/24/23 11:07 Const General: cooperative and healthy appearing Nutritional Appearance: well nourished Orientation/consciousness: patient oriented x3 Limitations: no limitations HENMT Head: Yes normal to inspection Eyes General: appearance normal, both eyes and all related structures Neck Neck: Yes normal visual inspection Chest Chest palpation & inspection: normal palpation of entire chest wall Resp Effort & Inspection: normal respiratory effort Neuro General: patient oriented x3 Assessment and Plan Assessment & Plan (1) BMI 37.0-37.9, adult: Code(s): Z68.37 - Body mass index [BMI] 37.0-37.9, adult Plan: Continue the nutrition and exercise regimen provided. (2) Generalized anxiety disorder: Code(s): F41.1 - Generalized anxiety disorder Plan: Patient has been offered clonazepam to be taken as needed for 3 weeks. A follow-up appointment has been scheduled. If she continues to have anxiety symptoms, Wellbutrin will be started. Counseling for mental health has also been requested. Coding Level of Care Code Est Pt Level 4 (56361) Diagnoses BMI 37.0-37.9, adult Z68.37 Generalized anxiety disorder F41.1
[2023-06-24 10:56] VITALS: BP 120/64; PULSE 60; O2SAT 97; BMI 33.3
== END 2023-06-24 11:35 | disposition home or self-care (01) ==
PROVIDERS: PCP Internal Medicine; Visit Provider Internal Medicine
DX: F41.1 Generalized anxiety disorder (principal); Z68.37 Body mass index [BMI] 37.0-37.9, adult
CPT/HCPCS: 99214

== ENCOUNTER 2023-07-13 14:16 | Outpatient (AMB) | payer OTHER, SELFPAY ==
--- NOTE | 2023-07-13 14:18 | A.OFFPC_ITS ---
Vital Signs 07/13/23 14:19 Height 5 ft 3 in Weight 179 lb BMI 31.7 BP 140/78 H Blood Pressure Location Lt brachial Position Sitting Pulse 81 Pulse Source Pulse Oximeter Pulse Oximetry (%) 97 Oxygen Delivery Method Room Air Intake Visit Reasons: Follow Up Intake Note: Patient is here to follow up on DM and Anxiety. Apparel Machinery Instructor Required: No Cold Rolling Machine Setter: Not Required per policy Accompanied by: Self / Same As Patient Allergies metfomin Adverse Reaction (Severe, Uncoded 07/13/23 15:09) Diarrhea Medication List - Last Reconciled 07/13/23 by Faraz Alaniz MD albuterol sulfate 90 mcg/actuation 2 puffs inhalation Q6H PRN blood sugar diagnostic twice a day blood-glucose meter As directed clonazepam 0.5 mg PO BEDTIME etonogestrel (Nexplanon) subdermal lancets (FreeStyle Lancets) test once daily nystatin 200,000 units (2 mL) PO QID 7 days pantoprazole 40 mg PO DAILY polyethylene glycol 3350 17 grams PO DAILY sennosides (senna) 17.2 mg (2 x 8.6 mg) PO BEDTIME PRN 90 days sucralfate 10 mL PO BID Tobacco use date assessed: 07/13/23 Dental Screening Dental Screen Date: 06/24/23 HPI Follow Up HPI Details 28-year-old female returns to the office for a follow-up visit. Klonopin has helped her with the panic attacks. She took it every day for 2 weeks and all her symptoms have resolved. She has not been taking it in the past 4 days. No return of symptoms. [facility] Medical History H. pylori infection Encounter for removal and reinsertion of Nexplanon Annual physical exam Obesity (BMI 35.0-39.9 without comorbidity) Encounter for surveillance of Nexplanon subdermal contraceptive Folliculitis Routine screening for STI (sexually transmitted infection) Well woman exam with routine gynecological exam Right leg pain COVID-19 Back pain Obesity Morbid obesity Generalized anxiety disorder Metabolic syndrome Abnormal TSH Pre-diabetes HTN (hypertension) PCOS (polycystic ovarian syndrome) Headache Vertigo Bronchitis delivery delivered Asthma Surgical History History of gastric surgery History of Family History Father No problems noted. Mother Asthma Family/Other Asthma Maternal Grandmother Breast cancer Other Mental health disorder Social History Household Members: Family Household Members Other:: son age 10 Housing: House Are you a primary long term care social worker to a significant other at home: Yes (son age 10, supportive mother lives next door) Do you presently have visiting nurse or other home services: No 75 years or older and lives alone: No Alcohol intake: never Patient Tobacco Use Status: Never used Tobacco e-Cigarette/Vaping Use: Never Used Second Hand Smoke Exposure: No service: No Current occupational status: employed 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 Alessio Gómez, Lizzeth Gao, Deion Adhikari and colleagues, with an educational jyothi from [employer]. Physical exam (Primary Care) Vital Signs: Last Vital Signs Pulse 81 07/13/23 14:19 BP 140/78 H 07/13/23 14:19 Pulse Ox 97 07/13/23 14:19 Oxygen Delivery Method Room Air 07/13/23 14:19 BMI result Body Mass Index 31.7 Tobacco/Smoking Status: Tobacco use Status Tobacco use date assessed 07/13/23 07/13/23 14:22 Patient Tobacco Use Status Never used Tobacco 07/13/23 14:22 Tobacco use type 11/05/22 15:25 e-Cigarette/Vaping Use Never Used 07/13/23 14:22 Thrive Assessment: Date of Thrive Assessment Date Thrive assessed 06/04/23 07/13/23 14:22 Const General: cooperative and healthy appearing Nutritional Appearance: well nourished Orientation/consciousness: patient oriented x3 Limitations: no limitations HENMT Head: Yes normal to inspection Eyes General: appearance normal, both eyes and all related structures Neck Neck: Yes normal visual inspection Chest Chest palpation & inspection: normal palpation of entire chest wall Resp Effort & Inspection: normal respiratory effort Neuro General: patient oriented x3 Assessment and Plan Assessment & Plan (1) Generalized anxiety disorder: Code(s): F41.1 - Generalized anxiety disorder Plan: 15 minutes was spent counseling on the etiology and treatment for panic attacks. She still has not started therapy and I encouraged her to make the appointment. Patient can use up to 10 Klonopin pills in a month for the symptoms. If she finds herself using more than this amount, she will need an SSRI. Coding Level of Care Code Est Pt Level 4 (68169) Diagnoses Generalized anxiety disorder F41.1
[2023-07-13 14:19] VITALS: BP 140/78; PULSE 81; O2SAT 97; BMI 31.7
== END 2023-07-13 15:06 | disposition home or self-care (01) ==
PROVIDERS: PCP Internal Medicine; Visit Provider Internal Medicine
DX: F41.1 Generalized anxiety disorder (principal)
CPT/HCPCS: 99214

== ENCOUNTER 2023-07-13 16:04 | Outpatient (AMB) | payer OTHER, SELFPAY ==
--- NOTE | 2023-07-13 08:31 | A.OFFVIS_ITS ---
VS Expanded 07/13/23 08:32 Height 5 ft 3 in Weight 179 lb 6.4 oz BMI 31.8 Body Fat % 38.3 Body Fat Mass 68.8 Fat Free Mass 110.8 Visceral Fat Rating 14 Body Water % 42.3 Body Water Mass 76 Muscle Mass/Score 104 Basal Metabolic Rate/Score 1,453 Intake Visit Reasons: (tV) PO LSG 06/03/23 Allergies metfomin Adverse Reaction (Severe, Uncoded 07/13/23 15:09) Diarrhea HPI Comments Details: This?a?28?yo female who is s/p LSG without hiatal hernia repair on?06/03/2019. Presents for approximately 5 week post op visit. Weight today is 179.4 pounds, with a BMI of 31.8. There has been a 53.8 pound weight loss,(initial weight 233.2 pounds) since starting the program on 04/12/2023 reflecting a 23 % total body weight loss and a weight loss of 15.6 pounds since surgery (operative weight 195 pounds) reflecting a 8% TBWL since surgery. No complaints of nausea, emesis, abdominal pain or reflux. Reports infrequent but normal bowel movements every 4-5 days and uses stool softeners regularly. She states that she is feeling good. No feelings of lightheadedness and she has not been checking BS. BP at home 120s-130s. Wants to start food Present meal plan includes: celebrate 4 in 1 1 scoop, 2 scoops, 1 scoop in 8 oz almond milk, 1 scoop 8-10, 11-1, 2-4 ZP bar 5-8 drinking 24-30 oz water ? Exercise routine includes: treadmill, 350 calories, daily [facility] Medical History H. pylori infection Encounter for removal and reinsertion of Nexplanon Annual physical exam Obesity (BMI 35.0-39.9 without comorbidity) Encounter for surveillance of Nexplanon subdermal contraceptive Folliculitis Routine screening for STI (sexually transmitted infection) Well woman exam with routine gynecological exam Right leg pain COVID-19 Back pain Obesity Morbid obesity Generalized anxiety disorder Metabolic syndrome Abnormal TSH Pre-diabetes HTN (hypertension) PCOS (polycystic ovarian syndrome) Headache Vertigo Bronchitis delivery delivered Asthma Surgical History History of gastric surgery History of Family History Father No problems noted. Mother Asthma Family/Other Asthma Maternal Grandmother Breast cancer Other Mental health disorder Social History Household Members: Family Household Members Other:: son age 10 Housing: House Are you a primary skin care specialist to a significant other at home: Yes (son age 10, supportive mother lives next door) Do you presently have visiting nurse or other home services: No 75 years or older and lives alone: No Alcohol intake: never Patient Tobacco Use Status: Never used Tobacco e-Cigarette/Vaping Use: Never Used Second Hand Smoke Exposure: No service: No Current occupational status: employed 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 occupation: [employer] service at [employer] Current occupational exposures/hazards: No Gender identity: Female Cognitive needs: No Hearing needs: No Vision needs: No Female Reproductive History Menstrual Age of Menarche: 8 Physical Exam Vital Signs: BMI result Body Mass Index 31.8 Telehealth Telehealth Telehealth Platform: Telephone Location of provider rendering services: practice address Location of patient: address on file Patient Identification confirmed using: Name, : Yes Telehealth method: voice only Patient verbally consented to treatment: Yes Patient verbally consented to billing insurance company: Yes Patient informed of any privacy concerns related to visit: Yes Minutes spent on Phone/Video with Pt.: 15 Assessment & Plan Assessment & Plan (1) Obesity: Code(s): E66.9 - Obesity, unspecified Category: Medical Qualifiers: Obesity type: due to excess calories Obesity classification: adult class 2 (BMI 35 - 39.9) Serious obesity comorbidity presence: unspecified whether serious comorbidity present Body mass index: BMI 39.0-39.9 Qualified Code(s): E66.09 - Other obesity due to excess calories; Z68.39 - Body mass index [BMI] 39.0-39.9, adult Plan: Patient wants to incorporate food. We will change meal plans slightly: celebrate 4 in 1 1 scoop, 2 scoops, 1 scoop in 8 oz almond milk x 2; 8-10, 11-1, 2-4 meal 5-6, 4 forks protein and 4 forks cooked vegetables. Continue fluid intake as she has been doing. Continue exercises she has been doing. Return to clinic 3 weeks.
[2023-07-13 08:32] VITALS: BMI 31.8
== END 2023-07-13 16:15 | disposition home or self-care (01) ==
LOC: HO.HBS 16:04
PROVIDERS: PCP Internal Medicine; Visit Provider Physician Assistant Surgical
DX: E66.09 Other obesity due to excess calories (principal); Z68.39 Body mass index [BMI] 39.0-39.9, adult
CPT/HCPCS: 99024

== ENCOUNTER → 2023-07-13 16:04 | Outpatient (BNVA) | payer OTHER, SELFPAY | PROVIDERS: PCP Internal Medicine; Visit Provider Physician Assistant Surgical | DX: E66.09 Other obesity due to excess calories (principal); Z68.31 Body mass index [BMI] 31.0-31.9, adult; Z90.3 Acquired absence of stomach [part of] | CPT/HCPCS: 99212 ==

== ENCOUNTER 2023-08-18 16:03 | Outpatient (AMB) | payer OTHER, SELFPAY ==
--- NOTE | 2023-08-18 10:33 | A.OFFVIS_ITS ---
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: No Allergies metfomin Adverse Reaction (Severe, Uncoded 07/13/23 15:09) Diarrhea Medication List - Last Reconciled 08/18/23 by THANIA Linn albuterol sulfate 90 mcg/actuation 2 puffs inhalation Q6H PRN blood sugar diagnostic twice a day blood-glucose meter As directed clonazepam 0.5 mg PO BEDTIME etonogestrel (Nexplanon) subdermal lancets (FreeStyle Lancets) test once daily nystatin 200,000 units (2 mL) PO QID 7 days pantoprazole 40 mg PO DAILY polyethylene glycol 3350 17 grams PO DAILY sennosides (senna) 17.2 mg (2 x 8.6 mg) PO BEDTIME PRN 90 days sucralfate 10 mL PO BID HPI Comments Details: This?a?28?yo female who is s/p LSG without hiatal hernia repair on?06/03/2019. Presents for approximately 2 month post op visit. Weight today is 173.2 pounds, with a BMI of 30.7. There has been a 60 pound weight loss,(initial weight 233.2 pounds) since starting the program on 04/12/2023 reflecting a 25.7 % total body weight loss and a weight loss of 21.8 pounds since surgery (operative weight 195 pounds) reflecting a 11.1% TBWL since surgery. No complaints of nausea, emesis, abdominal pain or reflux. Reports infrequent but normal bowel movements every 4- 5 days and uses stool softeners regularly. She states that she is feeling good. No feelings of lightheadedness and she has not been checking BS. BP at home 120s-130s. Present meal plan includes: celebrate 4 in 1 1 scoop, 2 scoops, 1 scoop in 8 oz almond milk x 2; 8-10, 11-1, 2-4 meal 5-6, 4 forks protein and 4 forks cooked vegetables. drinking 16-32 oz additional water ? Exercise routine includes: none in the last due to outside chores. treadmill, 350 calories, daily [facility] Medical History H. pylori infection Encounter for removal and reinsertion of Nexplanon Annual physical exam Obesity (BMI 35.0-39.9 without comorbidity) Encounter for surveillance of Nexplanon subdermal contraceptive Folliculitis Routine screening for STI (sexually transmitted infection) Well woman exam with routine gynecological exam Right leg pain COVID-19 Back pain Obesity Morbid obesity Generalized anxiety disorder Metabolic syndrome Abnormal TSH Pre-diabetes HTN (hypertension) PCOS (polycystic ovarian syndrome) Headache Vertigo Bronchitis delivery delivered Asthma Surgical History History of gastric surgery History of Family History Father No problems noted. 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 Current occupational exposures/hazards: No Gender identity: Female Cognitive needs: No Hearing needs: No Vision needs: No Female Reproductive History Menstrual Age of Menarche: 8 Telehealth Telehealth Telehealth Platform: Telephone Location of provider rendering services: practice address Location of patient: address on file Patient Identification confirmed using: Name, : Yes Telehealth method: voice only Patient verbally consented to treatment: Yes Patient verbally consented to billing insurance company: Yes Patient informed of any privacy concerns related to visit: Yes Minutes spent on Phone/Video with Pt.: 15 Assessment & Plan Assessment & Plan (1) Obesity: Code(s): E66.9 - Obesity, unspecified Category: Medical Qualifiers: Obesity type: due to excess calories Obesity classification: adult class 2 (BMI 35 - 39.9) Serious obesity comorbidity presence: unspecified whether serious comorbidity present Body mass index: BMI 39.0-39.9 Qualified Code(s): E66.09 - Other obesity due to excess calories; Z68.39 - Body mass index [BMI] 39.0-39.9, adult Plan: Continue current meal plan. Encouraged to slow down her eating overall. Encouraged to resume her exercise in the morning. Return to clinic 1 month. Text weekly with her weight and if any questions or concerns.
[2023-08-18 10:34] VITALS: BMI 30.7
== END 2023-08-18 17:00 | disposition home or self-care (01) ==
LOC: HO.HBS 16:03
PROVIDERS: PCP Internal Medicine; Visit Provider Physician Assistant Surgical
DX: E66.09 Other obesity due to excess calories (principal); Z68.39 Body mass index [BMI] 39.0-39.9, adult
CPT/HCPCS: 99024

== ENCOUNTER → 2023-08-18 16:03 | Outpatient (BNVA) | payer OTHER, SELFPAY | PROVIDERS: PCP Internal Medicine; Visit Provider Physician Assistant Surgical | DX: E66.09 Other obesity due to excess calories (principal); Z68.30 Body mass index [BMI] 30.0-30.9, adult; Z90.3 Acquired absence of stomach [part of] | CPT/HCPCS: 99212 ==

== ENCOUNTER 2023-09-09 21:48 | Emergency (ER) | payer OTHER, SELFPAY ==
[2023-09-09 21:50] VITALS: BP 146/76; PULSE 60; RESP 16; TEMP 36.6; O2SAT 98; BMI 29.5
[2023-09-09 23:15] VITALS: BP 129/76; PULSE 54; RESP 17; TEMP 36.1; O2SAT 100
--- NOTE | 2023-09-10 00:04 | ED_ITS ---
HPI - Eye Problem General Chief complaint: Eye Problems Stated complaint: something in eye Time Seen by Provider: 09/09/23 23:17 Source: patient Mode of arrival: ambulatory Limitations: no limitations History of Present Illness HPI Narrative: Patient is a 28-year-old female who presents emergency department. Reports this evening she was sitting outside when it became really windy, she felt as though something flew into her left eye. She subsequently developed pain to the left eye, blurred vision, excessive tearing, and a foreign body sensation. She attempted to flush the eye with water, thought that this may have been an eyelash that was stuck in the eye but her symptoms persisted. Denies wearing contact lenses. Related Data Home Medications ?Medication ?Instructions ?Recorded ?Confirmed etonogestrel 68 mg subdermal subdermal 01/02/20 08/18/23 implant (Nexplanon) sucralfate 100 mg/mL oral 10 ml PO BID 06/22/23 08/18/23 suspension polyethylene glycol 3350 17 gram 17 g PO DAILY 06/24/23 08/18/23 oral powder packet Previous Rx's ?Medication ?Instructions ?Recorded blood sugar diagnostic #100 ea 11/05/22 blood-glucose meter #1 ea 11/05/22 lancets 28 gauge (FreeStyle #100 ea 12/03/22 Lancets) nystatin 100,000 unit/mL oral 200,000 unit (2 mL) PO QID 7 days 06/22/23 suspension #56 mL sennosides 8.6 mg tablet (senna) 17.2 mg (2 x 8.6 mg) PO BEDTIME 06/22/23 PRN constipation 90 days #120 tabs clonazepam 0.5 mg tablet 0.5 mg PO BEDTIME #30 tabs 06/25/23 albuterol sulfate 90 mcg/actuation 2 puff inhalation Q6H PRN 06/26/23 aerosol inhaler shortness of breath or wheezing #8.5 grams pantoprazole 40 mg tablet,delayed 40 mg PO DAILY #90 tabs 08/18/23 release ofloxacin 0.3 % eye drops (Ocuflox) 2 drp ophthalmic (eye) QID 5 days 09/10/23 #10 mL Allergies Allergy/AdvReac Type Severity Reaction Status Date / Time metfomin AdvReac Severe Diarrhea Uncoded 06/20/24 21:51 Review of Systems Review of Systems: Yes all other systems are reviewed and are negative [facility] Past Medical History Attestation statement: The following information was validated with the patient. Source: old records reviewed Medical History H. pylori infection Encounter for removal and reinsertion of Nexplanon Annual physical exam Obesity (BMI 35.0-39.9 without comorbidity) Encounter for surveillance of Nexplanon subdermal contraceptive Folliculitis Routine screening for STI (sexually transmitted infection) Well woman exam with routine gynecological exam Right leg pain COVID-19 Back pain Obesity Morbid obesity Generalized anxiety disorder Metabolic syndrome Abnormal TSH Pre-diabetes HTN (hypertension) PCOS (polycystic ovarian syndrome) Headache Vertigo Bronchitis delivery delivered Asthma Surgical History History of gastric surgery History of Family History Family History Father No problems noted. 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 a significant other at home: Yes (son age 10, supportive mother lives next door) Do you presently have visiting nurse or other home services: No Alcohol intake: never Patient Tobacco Use Status: Never used Tobacco e-Cigarette/Vaping Use: Never Used Second Hand Smoke Exposure: No Advance Directives: No Advance Directives Information Provided: Yes Do you have a plan to hurt others: No Plan service: No Current occupational status: employed 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 No acute distress.?Normal affect. Eyes: Pupils equal, round and reactive to light.? Left sclera injected, small area of subconjunctival hemorrhage nearly adjacent to the lateral inferior portion of the iris. ENT: Pharynx normal.?? Neck: Normal inspection.? Neck supple.?? CVS: Heart sounds normal. Normal heart rate and rhythm.? Pulses normal.?? Respiratory: No respiratory distress.? Lung sounds clear to auscultation bilaterally??? Skin: Skin warm and dry.? Normal skin color.? Neuro: Moves all extremities spontaneously. Sensation intact bilaterally. Ambulates with normal steady gait. Medical Decision Making Medical Decision Making MDM Narrative: Patient is a 28-year-old female who presents emergency department for evaluation of a foreign body sensation to the left eye with pain, blurred vision, photophobia. Sudden onset after sitting outside, states he got really windy and she felt as though something blew into her eye. She denies wearing contact lenses. Fluorescein uptake at 04:00 o'clock-06:00 o'clock consistent with corneal abrasion, no visualized retained foreign body. Intra-ocular pressure 15 on the right, 16 on the left. PERRL. Stable for discharge home, sent prescription for ofloxacin drops to pharmacy, outpatient follow-up with Ophthalmology, discussed worrisome signs and symptoms that would warrant re- evaluation emergency department. Differential Diagnosis Differential Diagnoses: The differential diagnosis associated with the presentation includes (Corneal abrasion, retained foreign body, increased IOP. History and examination not consistent with conjunctivitis, periorbital cellulitis, orbital cellulitis.) Prescription Management I considered prescription management with: Antibiotic Discharge Plan Discharge Clinical Impression: Corneal abrasion, left Patient Disposition: Home, Self-Care Instructions: Corneal Abrasion (ED) Additional Instructions: Place 2 drops to the left eye 4 times daily for 5 days. Follow-up with unemployment insurance hearing officer, contact their office 1st thing tomorrow morning to arrange for follow-up. Return back to emergency department any new or worsening symptoms or concerns Prescriptions: New ofloxacin [Ocuflox] 0.3 % drops 2 drp ophthalmic (eye) QID 5 Days Qty: 10 0RF No Action (DME) lancets [FreeStyle Lancets] 28 gauge misc See Rx Instructions .Route Qty: 100 8RF Rx Instructions: test once daily albuterol sulfate 90 mcg/actuation HFA aerosol inhaler 2 puff inhalation Q6H PRN (Reason: shortness of breath or wheezing) Qty: 8.5 5RF pantoprazole 40 mg tablet,delayed release (DR/EC) 40 mg PO DAILY Qty: 90 0RF (DME) blood sugar diagnostic Strip See Rx Instructions .ROUTE .MEDSUPPLY Qty: 100 1RF Rx Instructions: twice a day (DME) blood-glucose meter Kit See Rx Instructions .ROUTE .MEDSUPPLY Qty: 1 0RF Rx Instructions: As directed polyethylene glycol 3350 17 gram powder in packet 17 g PO DAILY clonazepam 0.5 mg tablet 0.5 mg PO BEDTIME Qty: 30 0RF Rx Instructions: administer 30 minutes before bedtime Nexplanon 68 mg implant subdermal sucralfate 100 mg/mL suspension 10 ml PO BID nystatin 100,000 unit/mL suspension 200,000 unit PO QID 7 Days Qty: 56 0RF Rx Instructions: swish and swallow sennosides [senna] 8.6 mg tablet 17.2 mg PO BEDTIME PRN (Reason: constipation) 90 Days Qty: 120 1RF Referrals: Vitaly Okeefe [Physician] - Print Language: Croatian
[2023-09-10] MEDS: Tetracaine HCl/PF 0.5% Oph Sol 4 ML DROPS 1 DROP EYE-LEFT (00:16)
[2023-09-10] MEDS: Fluorescein Sodium STRIP 1 STRIP EYE-LEFT (00:16)
[2023-09-10 00:29] VITALS: BP 129/76; PULSE 54; RESP 17; TEMP 36.1; O2SAT 100
== END 2023-09-10 00:30 | disposition home or self-care (01) ==
PROVIDERS: Emergency Provider Internal Medicine; PCP Internal Medicine
DX: S05.02XA Injury of conjunctiva and corneal abrasion without foreign body, left eye, initial encounter (principal); X58.XXXA Exposure to other specified factors, initial encounter; H57.12 Ocular pain, left eye; Y93.9 Activity, unspecified; Y92.9 Unspecified place or not applicable; Y99.9 Unspecified external cause status
CPT/HCPCS: 99283

== ENCOUNTER 2023-09-20 16:04 | Outpatient (AMB) | payer OTHER, SELFPAY ==
--- NOTE | 2023-09-20 08:57 | MHC.OFFVISWM ---
VS Expanded 09/20/23 08:58 Height 5 ft 4 in Weight 169 lb BMI 29.0 Body Fat % 35.4 Body Fat Mass 59.8 Fat Free Mass 109.2 Visceral Fat Rating 12 Body Water % 44.3 Body Water Mass 74.8 Muscle Mass/Score 102.6 Basal Metabolic Rate/Score 1,446 Intake Visit Reasons: (TV) PO LSG 06/03/23 Radio Officer Required: No Allergies metfomin Adverse Reaction (Severe, Uncoded 09/09/23 21:51) Diarrhea Medication List - Last Reconciled 09/20/23 by THANIA Linn albuterol sulfate 90 mcg/actuation 2 puffs inhalation Q6H PRN blood sugar diagnostic twice a day blood-glucose meter As directed clonazepam 0.5 mg PO BEDTIME etonogestrel (Nexplanon) subdermal lancets (FreeStyle Lancets) test once daily nystatin 200,000 units (2 mL) PO QID 7 days ofloxacin 0.3% (Ocuflox) 2 drps ophthalmic (eye) QID 5 days pantoprazole 40 mg PO DAILY polyethylene glycol 3350 17 grams PO DAILY sennosides (senna) 17.2 mg (2 x 8.6 mg) PO BEDTIME PRN 90 days HPI Comments Details: This?a?28?yo female who is s/p LSG without hiatal hernia repair on?06/03/2019. Presents for approximately 3 month post op visit. Weight today is 169 pounds, with a BMI of 29. There has been a 64.2 pound weight loss,(initial weight 233.2 pounds) since starting the program on 04/12/2023 reflecting a 27.5 % total body weight loss and a weight loss of 26 pounds since surgery (operative weight 195 pounds) reflecting a 13.3% TBWL since surgery. No complaints of nausea, emesis, abdominal pain or reflux. Reports infrequent but normal bowel movements every 3-4 days and uses stool softeners regularly. She states that she is feeling good. She is having an additional 1/2-1 bar at night. Present meal plan includes: celebrate 4 in 1 1 scoop, 2 scoops, 1 scoop in 8 oz almond milk x 2; 8-10, 11-1, 2-4 meal 5-6, 4 forks protein and 4 forks cooked vegetables. drinking 32-48 oz additional water ? Exercise routine includes: treadmill, 175 calories, 3-4 days per week PFS Medical History H. pylori infection Encounter for removal and reinsertion of Nexplanon Annual physical exam Obesity (BMI 35.0-39.9 without comorbidity) Encounter for surveillance of Nexplanon subdermal contraceptive Folliculitis Routine screening for STI (sexually transmitted infection) Well woman exam with routine gynecological exam Right leg pain COVID-19 Back pain Obesity Morbid obesity Generalized anxiety disorder Metabolic syndrome Abnormal TSH Pre-diabetes HTN (hypertension) PCOS (polycystic ovarian syndrome) Headache Vertigo Bronchitis delivery delivered Asthma Surgical History History of gastric surgery History of Family History Father No problems noted. 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 a significant other at home: Yes (son age 10, supportive mother lives next door) Do you presently have visiting nurse or other home services: No 75 years or older and lives alone: No Alcohol intake: never Patient Tobacco Use Status: Never used Tobacco e-Cigarette/Vaping Use: Never Used Second Hand Smoke Exposure: No service: No Current occupational status: employed 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 [employer] Current occupational exposures/hazards: No Gender identity: Female Cognitive needs: No Hearing needs: No Vision needs: No Female Reproductive History Menstrual Age of Menarche: 8 Telehealth Telehealth Telehealth Platform: Telephone Location of provider rendering services: practice address Location of patient: address on file Patient Identification confirmed using: Name, : Yes Telehealth method: voice only Patient verbally consented to treatment: Yes Patient verbally consented to billing insurance company: Yes Patient informed of any privacy concerns related to visit: Yes Minutes spent on Phone/Video with Pt.: 15 Assessment & Plan Assessment & Plan (1) S/P laparoscopic sleeve gastrectomy: Code(s): Z98.84 - Bariatric surgery status Category: Surgical Plan: Patient wishes to continue the meal plan. Would recommend avoiding the extra bar or half bar at night. Increase meal 2 5 forks protein and 5 of vegetables. If she is hungry in the evening I suggested a half a cup of fresh fruit such as [employer] or half an apple. Regarding her exercise, strongly suggested increasing exercise to a goal of 300 calories per day 7 days a week or 2000 calories per week. Return to office 1 month
[2023-09-20 08:58] VITALS: BMI 29.0
== END 2023-09-20 16:05 | disposition home or self-care (01) ==
LOC: HO.HBS 16:04
PROVIDERS: PCP Internal Medicine; Visit Provider Physician Assistant Surgical
DX: E66.3 Overweight (principal); Z68.29 Body mass index [BMI] 29.0-29.9, adult; Z90.3 Acquired absence of stomach [part of]; Z98.84 Bariatric surgery status
CPT/HCPCS: 99213

== ENCOUNTER → 2023-09-20 16:04 | Outpatient (BNVA) | payer OTHER, SELFPAY | PROVIDERS: PCP Internal Medicine; Visit Provider Physician Assistant Surgical | DX: Z98.84 Bariatric surgery status (principal) ==

== ENCOUNTER 2023-11-09 12:55 | Outpatient (REF) | payer OTHER, SELFPAY ==
[2023-11-10 03:30] LABS: CT PCR NOT DETECTED (Not Detect.); NG PCR NOT DETECTED (Not Detect.)
[2023-11-10 10:30] LABS: Bacterial Vaginosis PCR NEGATIVE (Negative); Candida Group PCR NOT DETECTED (Not Detect); Candida glab krusei PCR NOT DETECTED (Not Detect); Trichomonas vaginalis PCR NOT DETECTED (Not Detect)
== END 2023-11-09 12:56 | disposition home or self-care (01) ==
LOC: HO.LAB 12:55
PROVIDERS: PCP Internal Medicine; Visit Provider Advanced Practice Midwife
DX: Z01.419 Encounter for gynecological examination (general) (routine) without abnormal findings (principal); Z20.2 Contact with and (suspected) exposure to infections with a predominantly sexual mode of transmission; N89.8 Other specified noninflammatory disorders of vagina
CPT/HCPCS: 0352U; 36415; 87491; 87591; 87625; 88175; 99395

== ENCOUNTER 2023-11-09 12:55 | Outpatient (AMB) | payer OTHER, SELFPAY ==
[2023-11-09 13:23] VITALS: BP 118/70; BMI 29.2
--- NOTE | 2023-11-09 13:23 | A.OFFVIS_ITS ---
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 Services: Arc Furnace Operator Present Information Interpreted: clinical only Big Data Solutions Architect: Big Data Solutions Architect Present Allergies metfomin Adverse Reaction (Severe, Uncoded 11/09/23 13:23) Diarrhea Medication List - Last Reconciled 11/09/23 by Lynn Wolff CNM albuterol sulfate 90 mcg/actuation 2 puffs inhalation Q6H PRN blood sugar diagnostic twice a day blood-glucose meter As directed clonazepam 0.5 mg PO BEDTIME etonogestrel (Nexplanon) subdermal lancets (FreeStyle Lancets) test once daily polyethylene glycol 3350 17 grams PO DAILY sennosides (senna) 17.2 mg (2 x 8.6 mg) PO BEDTIME PRN 90 days Is last menstrual period known: No (Nexplanon) Do you need a note to return to daycare/school/sports/work: No HPI HPI 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 She is working very hard working out trying to lose the lose skin she has 10 or 15 more lb to get to her goal but she is doing very well and she says also that her diabetes and pre diabetes were probably after COVID and had gone even before she started losing the weight. She does have a history of PCOS and they are many notations in the chart about these issues. She says she is not on any medications for them anymore things are good she does checking with her primary care provider frequently she was offered testing for STIs in this visit accepted. She is not worried about anything in particular. She thinks about having another child but she knows it would be complicated and a and she has decided not now. [facility] Medical History (Updated 11/09/23 @ 14:04 by Lynn Wolff CNM) Routine screening for STI (sexually transmitted infection) Encounter for surveillance of Nexplanon subdermal contraceptive Well woman exam with routine gynecological exam H. pylori infection Encounter for removal and reinsertion of Nexplanon Annual physical exam Obesity (BMI 35.0-39.9 without comorbidity) Folliculitis Right leg pain COVID-19 Back pain Obesity Morbid obesity Generalized anxiety disorder Metabolic syndrome Abnormal TSH Pre-diabetes HTN (hypertension) PCOS (polycystic ovarian syndrome) Headache Vertigo Bronchitis delivery delivered Asthma Surgical History History of gastric surgery History of Family History Father No problems noted. 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 occupation: [employer] service at [employer] Current occupational exposures/hazards: No Gender identity: Female Cognitive needs: No Hearing needs: No Vision needs: No Female Reproductive History Menstrual Age of Menarche: 8 Duration of menses: <3 days control method: implanted Total pregnancies: 2 Full term: 1 Date of last pap smear: 09/10/21 (negative) Physical Exam Vital Signs: Last Vital Signs BP 118/70 11/09/23 13:23 BMI result Body Mass Index 29.2 Const General: healthy appearing, comfortable, no acute distress, well developed and alert Nutritional Appearance: average body habitus Orientation/consciousness: patient oriented x3 Limitations: no limitations HEENT Head: Yes normocephalic Neck Neck: Yes normal visual inspection Chest Chest palpation & inspection: normal inspection of the chest Breast/axilla inspection: normal inspection of the breasts and normal inspection of the axillae Breast/axilla palpation: normal palpation of the breasts and normal palpation of the axillae Resp Effort & Inspection: normal respiratory effort GI Inspection: Yes normal to inspection, No Abdominal wall edema and No distended Palpation (GI): Soft to palpation and nontender Other: External exam within normal limits vagina pink and moist redundant vaginal tissue from previous elevated BMI noted. Cervix parous but pink smooth round mobile nontender uterus anteverted mobile nontender does feel slightly enlarged previously noted. Adnexa nontender good tone with Kegel. General: Yes bladder normal to palpation External Female Exam: normal external appearance and normal appearance of the urethra Speculum Exam - Vagina: normal appearance of the vagina, normal palpation and normal vaginal discharge Speculum Exam - Cervix: normal appearance of the cervix, normal palpation and nontender Bimanual exam- vagina & uterus: normal bimanual exam, normal palpation, uterine size normal, bladder normal to palpation, consistency normal, normal palpation, uterine mobility normal, uterine shape normal, No Cervical tenderness present, non-tender and no cervical motion tenderness Bimanual Exam- Adnexa, other: normal adnexae, no masses, normal and No adnexal tenderness Neuro General: patient oriented x3 Assessment & Plan Assessment & Plan (1) Cervical cancer screening: Comment: 09/09/2021 Pap equals negative; Code(s): Z12.4 - Encounter for screening for malignant neoplasm of cervix Category: Medical (2) PCOS (polycystic ovarian syndrome): Code(s): E28.2 - Polycystic ovarian syndrome Category: Medical (3) Encounter for surveillance of Nexplanon subdermal contraceptive: Comment: Replaced most recently 11/03/2022. Code(s): Z30.46 - Encounter for surveillance of implantable subdermal contraceptive Category: Medical (4) Well woman exam with routine gynecological exam: Code(s): Z01.419 - Encounter for gynecological examination (general) (routine) without abnormal findings Category: Medical (5) Septate uterus: Comment: preg #1- loss at 19 w preg #2- labor at 19w, delivered at 24 w, preg #3-c/s Code(s): Q51.28 - Other and unspecified doubling of uterus Category: Medical (6) Metabolic syndrome: Comment: 'Her diabetes and prediabetes was after COVID and disappeared even before her weight loss surgery and that she is fine now....' Code(s): E88.810 - Metabolic syndrome Category: Medical (7) Routine screening for STI (sexually transmitted infection): Code(s): Z11.3 - Encounter for screening for infections with a predominantly sexual mode of transmission Category: Medical Plan -----Discussed in this visit the following: healthy balanced diet, regular and consistent exercise, getting recommended health screens, doing the best she can for her particular health concerns, kegel exercises, pap smear screening and followup recommendations, mammography screening and SBE, normal changes in cycles in her life stage--- . Congratulated on her very hard work to lose the weight and that she is continuing to do to make sure as she is in her best possible shape. She does get irregular menses with Nexplanon but so far she is okay with that. This is her 4th 1 so far. She has a therapist her support and is on different medications that she is trying very hard not to take because she knows there addictive and so she is being very careful and using them sparingly. Congratulated on hard work. She will be following up with her PCC I recommend maybe sitting with him and going through what of her diagnoses are truly gone versus just much improved. Orders: Orders Hepatitis B Surface Antigen Today Z11.3 - Encounter for screening for infections with a predominantly sexual mode of transmission Hepatitis C Antibody Today Z11.3 - Encounter for screening for infections with a predominantly sexual mode of transmission HIV Ab/Ag Today Z11.3 - Encounter for screening for infections with a predominantly sexual mode of transmission Syphilis Screen Today Z11.3 - Encounter for screening for infections with a predominantly sexual mode of transmission Coding Level of Care Code Est Pt Prev Care 18-39y(07631) Diagnoses Cervical cancer screening Z12.4 PCOS (polycystic ovarian syndrome) E28.2 Encounter for surveillance of Nexplanon subdermal contraceptive Z30.46 Well woman exam with routine gynecological exam Z01.419 Septate uterus Q51.28 Metabolic syndrome E88.810 Routine screening for STI (sexually transmitted infection) Z11.3
== END 2023-11-09 13:59 | disposition home or self-care (01) ==
LOC: HO.HWSM 12:55
PROVIDERS: PCP Internal Medicine; Visit Provider Advanced Practice Midwife
DX: Z01.419 Encounter for gynecological examination (general) (routine) without abnormal findings (principal); Q51.28 Other and unspecified doubling of uterus; E88.810 Metabolic syndrome
CPT/HCPCS: 99395

== ENCOUNTER 2023-11-18 15:06 | Outpatient (AMB) | payer OTHER, SELFPAY ==
--- NOTE | 2023-11-18 08:23 | A.OFFVIS_ITS ---
VS Expanded 11/18/23 08:24 Height 5 ft 4 in Weight 168 lb BMI 28.8 Body Fat % 35.1 Body Fat Mass 59 Fat Free Mass 109 Visceral Fat Rating 12 Body Water % 44.5 Body Water Mass 74.8 Muscle Mass/Score 102.4 Basal Metabolic Rate/Score 1,439 Intake Visit Reasons: (TV) PO LSG 06/03/23 Green Marketing Specialist Required: No Allergies metfomin Adverse Reaction (Severe, Uncoded 11/09/23 13:23) Diarrhea Medication List - Last Reconciled 11/18/23 by THANIA Linn albuterol sulfate 90 mcg/actuation 2 puffs inhalation Q6H PRN blood sugar diagnostic twice a day blood-glucose meter As directed clonazepam 0.5 mg PO BEDTIME etonogestrel (Nexplanon) subdermal lancets (FreeStyle Lancets) test once daily polyethylene glycol 3350 17 grams PO DAILY sennosides (senna) 17.2 mg (2 x 8.6 mg) PO BEDTIME PRN 90 days HPI Comments Details: This?a?28?yo female who is s/p LSG without hiatal hernia repair on?06/03/2019. Presents for approximately 5 month post op visit. Weight today is 168 pounds, with a BMI of 28.8. There has been a 65.2 pound weight loss,(initial weight 233.2 pounds) since starting the program on 04/12/2023 reflecting a 27.6 % total body weight loss and a weight loss of 27 pounds since surgery (operative weight 195 pounds) reflecting a 13.4% TBWL since surgery. No complaints of nausea, emesis, abdominal pain or reflux. Reports infrequent but normal bowel movements every 3-4 days and uses stool softeners regularly. She states that she is feeling good. She states she has continued with stress and anxiety. Present meal plan includes: celebrate 4 in 1 1 scoop each 8 oz almond milk x 3; 8-10, 11-1, 2-4 meal 5-6, 5 forks protein and 5 forks cooked vegetables. drinking 32-48 oz additional water ? Exercise routine includes: 30 minutes, treadmill, 150-175 calories, 2 days per week [facility] Medical History Routine screening for STI (sexually transmitted infection) Encounter for surveillance of Nexplanon subdermal contraceptive Well woman exam with routine gynecological exam H. pylori infection Encounter for removal and reinsertion of Nexplanon Annual physical exam Obesity (BMI 35.0-39.9 without comorbidity) Folliculitis Right leg pain COVID-19 Back pain Obesity Morbid obesity Generalized anxiety disorder Metabolic syndrome Abnormal TSH Pre-diabetes HTN (hypertension) PCOS (polycystic ovarian syndrome) Headache Vertigo Bronchitis delivery delivered Asthma Surgical History History of gastric surgery History of Family History Father No problems noted. 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 at home: Yes (son age 10, supportive mother lives next door) Do you presently have visiting nurse or other home services: No 75 years or older and lives alone: No Alcohol intake: never Patient Tobacco Use Status: Never used Tobacco e-Cigarette/Vaping Use: Never Used Second Hand Smoke Exposure: No service: No Current occupational status: employed 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 [employer] Current occupational exposures/hazards: No Gender identity: Female Cognitive needs: No Hearing needs: No Vision needs: No Female Reproductive History Menstrual Age of Menarche: 8 Physical Exam Vital Signs: BMI result Body Mass Index 28.8 Telehealth Telehealth Telehealth Platform: Telephone Location of provider rendering services: practice address Location of patient: address on file Patient Identification confirmed using: Name, : Yes Telehealth method: voice only Patient verbally consented to treatment: Yes Patient verbally consented to billing insurance company: Yes Patient informed of any privacy concerns related to visit: Yes Minutes spent on Phone/Video with Pt.: 12 Assessment & Plan Assessment & Plan (1) S/P laparoscopic sleeve gastrectomy: Code(s): Z98.84 - Bariatric surgery status Category: Surgical Plan: Patient is following the new meal plan as given to her by Dr. Whaley. She was encouraged to increase her exercise. She states that she does have a stationary bike at home and will use this. Encouraged her to continue the treadmill 2 days a week, increasing her time as well as calories burn to a goal of 300 per day. Additionally discussed the importance of burning 300 calories on the stationary bike daily. She was encouraged to text weekly with weights and with any questions. Return to clinic as scheduled.
[2023-11-18 08:24] VITALS: BMI 28.8
== END 2023-11-18 15:13 | disposition home or self-care (01) ==
LOC: HO.HBS 15:07
PROVIDERS: PCP Internal Medicine; Visit Provider Physician Assistant Surgical
DX: E66.3 Overweight (principal); Z68.28 Body mass index [BMI] 28.0-28.9, adult; Z90.3 Acquired absence of stomach [part of]; Z98.84 Bariatric surgery status
CPT/HCPCS: 99213

== ENCOUNTER → 2023-11-18 15:06 | Outpatient (BNVA) | payer OTHER, SELFPAY | PROVIDERS: PCP Internal Medicine; Visit Provider Physician Assistant Surgical ==

== ENCOUNTER 2024-01-13 14:00 | Outpatient (AMB) | payer OTHER, SELFPAY ==
--- NOTE | 2024-01-13 14:07 | A.OFFPC_ITS ---
Vital Signs 01/13/24 14:08 Height 5 ft 4 in Weight 171 lb 6 oz BMI 29.4 BP 124/80 Blood Pressure Location Lt brachial Position Sitting Pulse 76 Pulse Source Pulse Oximeter Pulse Oximetry (%) 99 Oxygen Delivery Method Room Air Intake Visit Reasons: 6mth f/u Intake Note: Patient is here to follow up on RAY, DM, Asthma. Pt decline flu shot today. Shoe Shiner Required: No Flow Manager: Not Required per policy Accompanied by: Self / Same As Patient Allergies metfomin Adverse Reaction (Severe, Uncoded 01/13/24 14:41) Diarrhea Medication List - Last Reconciled 01/13/24 by Faraz Alaniz MD albuterol sulfate 90 mcg/actuation 2 puffs inhalation Q6H PRN etonogestrel (Nexplanon) subdermal Tobacco use date assessed: 01/13/24 Dental Screening Dental Screen Date: 06/24/23 HPI 6mth f/u HPI Details 28-year-old female presents to the [facility] for a follow-up visit. Patient is requesting a refill on clonazepam. The last time her prescription was filled was in June. She uses the medications sparingly for anxiety. Patient is a single mom and works at [employer]. She has a stressful job at [employer]. At times she feels nervous, anxious with crying spells. Sleep patterns are not disturbed. Patient is also requesting a cream for a rash on her toe. [facility] Medical History Routine screening for STI (sexually transmitted infection) Encounter for surveillance of Nexplanon subdermal contraceptive Well woman exam with routine gynecological exam H. pylori infection Encounter for removal and reinsertion of Nexplanon Annual physical exam Obesity (BMI 35.0-39.9 without comorbidity) Folliculitis Right leg pain COVID-19 Back pain Obesity Morbid obesity Generalized anxiety disorder Metabolic syndrome Abnormal TSH Pre-diabetes HTN (hypertension) PCOS (polycystic ovarian syndrome) Headache Vertigo Bronchitis delivery delivered Asthma Surgical History (Updated 01/13/24 @ 14:14 by BRET Coffman) History of gastric surgery History of Family History Father No problems noted. 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 at home: Yes (son age 10, supportive mother lives next door) Do you presently have visiting nurse or other home services: No 75 years or older and lives alone: No Alcohol intake: never Patient Tobacco Use Status: Never used Tobacco e-Cigarette/Vaping Use: Never Used Second Hand Smoke Exposure: No service: No Current occupational status: employed 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 How often do you have six or more drinks on one occasion?: Never Total Score: 0 RAY-7 AMB Questionnaire RAY-7 Date RAY - 7 assessed: 06/24/23 Source: Developed by Drs. Alessio Gómez, Lizzeth Gao, Deion Adhikari and colleagues, with an educational jyothi from [employer] (formerly [employer]). Physical exam (Primary Care) Vital Signs: Last Vital Signs Pulse 76 01/13/24 14:08 BP 124/80 01/13/24 14:08 Pulse Ox 99 01/13/24 14:08 Oxygen Delivery Method Room Air 01/13/24 14:08 BMI result Body Mass Index 29.4 Tobacco/Smoking Status: Tobacco use Status Tobacco use date assessed 01/13/24 01/13/24 14:15 Patient Tobacco Use Status Never used Tobacco 01/13/24 14:15 Tobacco use type 11/05/22 15:25 e-Cigarette/Vaping Use Never Used 01/13/24 14:15 Thrive Assessment: Date of Thrive Assessment Date Thrive assessed 06/04/23 01/13/24 14:15 Const General: cooperative and healthy appearing Nutritional Appearance: well nourished Orientation/consciousness: patient oriented x3 Limitations: no limitations HENMT Head: Yes normal to inspection Eyes General: appearance normal, both eyes and all related structures Neck Neck: Yes normal visual inspection Chest Chest palpation & inspection: normal palpation of entire chest wall Resp Effort & Inspection: normal respiratory effort Skin Other: Right foot: Great toe: Pulp tissue near l the nail is erythematous, dry scaly. Neuro General: patient oriented x3 Results AMB Hemoglobin A1c AMB Hemoglobin A1c 4.6 % Last Edit by BRET Coffman on 01/13/24 14:18 Results Reviewed Results Reviewed: Laboratory Last Values Hgb A1c (Clinic) 4.6 % (4.0-6.0) 01/13/24 14:07 Coding Level of Care Code Est Pt Level 4 (84091) Complex EM visit Add On G2211 Diagnoses Tinea pedis B35.3 Type 2 diabetes mellitus without complication, without long-term current use of insulin E11.9 Diabetes mellitus senior care insulin use: without adjunct faculty for medical terminology use Generalized anxiety disorder F41.1 Assessment & Plan Assessment & Plan (1) Tinea pedis: Code(s): B35.3 - Tinea pedis Plan: Ketoconazole has been prescribed. Apply twice a day. (2) Type 2 diabetes mellitus without complications: Code(s): E11.9 - Type 2 diabetes mellitus without complications Category: Medical Qualifiers: Diabetes mellitus senior care insulin use: without adjunct faculty for medical terminology use Qualified Code(s): E11.9 - Type 2 diabetes mellitus without complications Plan: Patient does not have this disorder. Her A1c is less than 5. (3) Generalized anxiety disorder: Code(s): F41.1 - Generalized anxiety disorder Category: Medical Plan Clonazepam for intermittent use has been prescribed. Orders: Orders AMB Hemoglobin A1c Today E11.9 - Type 2 diabetes mellitus without complications Medications: Refilled clonazepam administer 30 minutes before bedtime 0.5 mg PO BEDTIME 30 tabs 0RF
[2024-01-13 14:08] VITALS: BP 124/80; PULSE 76; O2SAT 99; BMI 29.4
== END 2024-01-13 14:43 | disposition home or self-care (01) ==
PROVIDERS: PCP Internal Medicine; Visit Provider Internal Medicine
DX: B35.3 Tinea pedis (principal); E11.9 Type 2 diabetes mellitus without complications; F41.1 Generalized anxiety disorder

== ENCOUNTER → 2024-01-13 14:00 | Outpatient (BNVA) | payer OTHER, SELFPAY | PROVIDERS: PCP Internal Medicine; Visit Provider Internal Medicine | DX: B35.3 Tinea pedis (principal); E11.9 Type 2 diabetes mellitus without complications; F41.1 Generalized anxiety disorder | CPT/HCPCS: 83036; 99212 ==

== ENCOUNTER 2024-07-13 13:45 | Outpatient (AMB) | payer OTHER, SELFPAY ==
--- NOTE | 2024-07-13 13:57 | MHC.PC.OV ---
Vital Signs 07/13/24 13:59 Height 5 ft 4 in Weight 179 lb 2 oz BMI 30.7 BP 120/60 Blood Pressure Location Lt brachial Position Sitting Pulse 63 Pulse Source Pulse Oximeter Temp 97.7 F Temp Source Temporal Artery Scan Pulse Oximetry (%) 98 Oxygen Delivery Method Room Air Intake Visit Reasons: 6 month f/u Intake Note: Patient is here to follow up on DM, Asthma, . Bass Viol Repairer Required: No Cnc Machine Operator: Not Required per policy Accompanied by: Self / Same As Patient Allergies metfomin Adverse Reaction (Severe, Uncoded 07/13/24 14:40) Diarrhea Medication List - Last Reconciled 07/13/24 by Faraz Alaniz MD albuterol sulfate 90 mcg/actuation 2 puffs inhalation Q6H PRN clonazepam 0.5 mg PO BEDTIME etonogestrel (Nexplanon) subdermal ketoconazole 2% 1 appl topical DAILY Tobacco use date assessed: 07/13/24 Dental Screening Dental Screen Date: 07/13/24 Did you have a dental visit in the last 12 months?: Yes Did you have a dental problem in the last 6 months where you did not have access to dental care?: No Was dental information given to patient?: Patient has dentist [facility] Medical History Routine screening for STI (sexually transmitted infection) Encounter for surveillance of Nexplanon subdermal contraceptive Well woman exam with routine gynecological exam H. pylori infection Encounter for removal and reinsertion of Nexplanon Annual physical exam Obesity (BMI 35.0-39.9 without comorbidity) Folliculitis Right leg pain COVID-19 Back pain Obesity Morbid obesity Generalized anxiety disorder Metabolic syndrome Abnormal TSH Pre-diabetes HTN (hypertension) PCOS (polycystic ovarian syndrome) Headache Vertigo Bronchitis delivery delivered Asthma Surgical History History of gastric surgery History of Family History Father No problems noted. Mother Asthma Family/Other Asthma Maternal Grandmother Breast cancer Other Mental health disorder Social History Household Members: Family Household Members Other:: son age 10 Housing: House Are you a primary critical care cns to a significant other at home: Yes (son age 10, supportive mother lives next door) Do you presently have visiting nurse or other home services: No 75 years or older and lives alone: No Alcohol intake: never Patient Tobacco Use Status: Never used Tobacco e-Cigarette/Vaping Use: Never Used Second Hand Smoke Exposure: No service: No Current occupational status: employed Current occupation: [employer] service at [employer] Current occupational exposures/hazards: No Gender identity: Female Cognitive needs: No Hearing needs: No Vision needs: No Female Reproductive History Menstrual Age of Menarche: 8 Questionnaire PHQ-9 Over the last 2 weeks, how often have you been bothered by any of the following problems? 1. Little interest or pleasure in doing things: not at all 2. Feeling down, depressed, or hopeless: not at all 3. Trouble falling or staying asleep, or sleeping too much: not at all 4. Feeling tired or having little energy: not at all 5. Poor appetite or overeating: not at all 6. Feeling bad about yourself - or that you are a failure or have let yourself or your family down: not at all 7. Trouble concentrating on things, such as reading the newspaper or watching television: not at all 8. Moving or speaking so slowly that other people could have noticed. Or the opposite - being so fidgety or restless that you have been moving around a lot more than usual: not at all 9. Thoughts that you would be better off or of hurting yourself in some way: not at all Total score: 0 Depression Screening Interpretation: Negative Depression Screening Done: Yes Source: Developed by Drs. Alessio Gómez, Lizzeth Gao, Deion Adhikari and colleagues, with an educational jyothi from [employer]. Thrive Questionnaire Date Thrive assessed: 07/13/24 I am a: Patient What is your living situation today?: I have a steady place to live Within the past 12 months, did the food you bought not last and you didn't have the money to get more?: Never true Within the past 12 months, did you worry whether your food would run out before you got money to buy more?: Never true Do you have trouble paying for medicines?: No Do you have trouble getting transportation to medical appointments?: No Do you have trouble paying your heating and electricity bill?: No Do you have trouble taking care of your child, family member or friend?: No Do you have trouble with day-to-day activities such as bathing, preparing meals, shopping, managing finances, etc.?: No Are you currently unemployed and looking for a job?: No Are you interested in more education?: No Please select the resources that you would like help with: None Currently or been in a relationship where the following occur: No concerns reported THRIVE Score: 0 AUDIT C Alcohol Use Questionnaire (AUDIT-C) 1. How often do you have a drink containing alcohol?: Never Total Score: 0 RAY-7 AMB Questionnaire RAY-7 Date RAY - 7 assessed: 07/13/24 Feeling nervous, anxious, or on edge: 3 = Nearly every day Not being able to stop or control worryin = Nearly every day Worrying too much about different things: 3 = Nearly every day Trouble relaxin = Nearly every day Being so restless that it is hard to sit still: 0 = Not at all Becoming easily annoyed or irritable: 0 = Not at all Feeling afraid as if something awful might happen: 0 = Not at all Total RAY-7 score (0-4 normal; 5-9 mild; 10-14 moderate; 15-21 severe): 12 Source: Developed by Drs. Alessio Gómez, Lizzeth Gao, Deion Adhikari and colleagues, with an educational jyothi from [employer]. Physical exam (Primary Care) Vital Signs: Last Vital Signs Temp 97.7 F 07/13/24 13:59 Pulse 63 07/13/24 13:59 BP 120/60 07/13/24 13:59 Pulse Ox 98 07/13/24 13:59 Oxygen Delivery Method Room Air 07/13/24 13:59 BMI result Body Mass Index 30.7 Tobacco/Smoking Status: Tobacco use Status Tobacco use date assessed 07/13/24 07/13/24 14:10 Patient Tobacco Use Status Never used Tobacco 07/13/24 14:10 Tobacco use type 11/05/22 15:25 e-Cigarette/Vaping Use Never Used 07/13/24 14:10 PHQ-9: PHQ-9 Score PHQ-9: Total score 0 07/13/24 14:10 Depression Screening Interpretation: Negative Thrive Assessment: Date of Thrive Assessment Date Thrive assessed 07/13/24 07/13/24 14:10 Currently or been in a relationship where the following occur: No concerns reported Results AMB Hemoglobin A1c AMB Hemoglobin A1c 4.7 % Last Edit by BRET Coffman on 07/13/24 14:15 Results Reviewed Results Reviewed: Laboratory Last Values Hgb A1c (Clinic) 4.7 % (4.0-6.0) 07/13/24 13:57 Coding Level of Care Code Est Pt Level 4 (94932) Complex EM visit Add On G2211 Diagnoses Generalized anxiety disorder F41.1 Type 2 diabetes mellitus without complication, without long-term current use of insulin E11.9 Diabetes mellitus assisted insulin use: without terminal carman use PCOS (polycystic ovarian syndrome) E28.2 Assessment & Plan Assessment & Plan (1) Generalized anxiety disorder: Code(s): F41.1 - Generalized anxiety disorder Category: Medical Plan: Intermittent use of Clonazepam (2) Type 2 diabetes mellitus without complications: Code(s): E11.9 - Type 2 diabetes mellitus without complications Category: Medical Qualifiers: Diabetes mellitus assisted insulin use: without assisted use Qualified Code(s): E11.9 - Type 2 diabetes mellitus without complications Plan: A1c is in range. Continue current meds. (3) PCOS (polycystic ovarian syndrome): Code(s): E28.2 - Polycystic ovarian syndrome Category: Medical Plan: Condition is stable. Plan History of Present Illness The patient is a 29-year-old female presenting with a request for medication refill and evaluation of recurrent skin eruptions. She has folliculitis attributed to shaving due to hirsutism associated with Polycystic Ovary Syndrome (PCOS). The patient describes the occurrence of pimples localized on her legs and buttocks, primarily at hair follicles, which heal spontaneously. Stress is a significant factor in her life, exacerbated by her mother's dental health issues. The patient currently takes Clonazepam for anxiety and is in need of a prescription refill. Her work at [employer] remains consistent, though her home environment is stressful. She acknowledges a decline in her vision yet has not pursued corrective measures. Blood work is pending as part of her health assessments, and future medical consultations with her Shearer Screen Measurer And Trimmer and therapist are planned. Social History - Employment: Works at [employer]. - Family Situation: Experiencing stress due to her mother's dental health issues. - Mental Health: Manages anxiety through therapy and medication (Clonazepam). - Lifestyle: Experiences stress related to personal and familial issues. - Medical History: Diagnosed with PCOS. Review of Systems - Dermatological: Reports recurrent pimples on legs and buttocks. - Ophthalmic: Reports decreased vision in one eye. - Psychiatric: Reports anxiety, seeing a therapist. Physical Exam General: Cooperative and healthy appearing Nutritional Appearance: Well nourished Orientation/consciousness: Patient oriented x3 Limitations: No limitations Head: Normal to inspection General: Appearance normal, both eyes and all related structures Neck: Normal visual inspection Chest: Normal palpation of entire chest wall Respiratory: N ormal respiratory effort Neurology: Patient oriented x3, vision not as good Results Plan I will provide a refill for Clonazepam to manage her anxiety, which has worsened due to her mother's health issues. The episodic folliculitis related to PCOS-associated hirsutism is self-limiting, but monitoring continues. She agrees to complete pending blood work and continue therapy sessions for comprehensive management. For her visual concerns, I suggest an plan rep referral. Supporting the patient's mental health and promoting stress management will be a priority. I recommend regular follow-ups to monitor her conditions. Patient was informed and verbally consented to the use of an ambient scribe for clinic note documentation during this visit. Discussion Notes During our discussion, I addressed the patient's concerns regarding medication management and reiterated the importance of ongoing therapeutic interventions for her anxiety. The potential correlation between her shaving practices and folliculitis was clarified, and reassurance was provided along with stress management strategies. I supported her determination to undergo an ophthalmologic consultation due to her visual difficulties. The patient values proactive engagement in her health care, and I highlighted the necessity of follow-up blood tests to ensure no underlying conditions are overlooked. We agreed on the importance of continuity in her care through scheduled future appointments with specialists and therapy engagements. Patient Instructions - Refill Clonazepam prescription for anxiety management. - Schedule and complete blood work as discussed. - Consult with an plan rep for vision concerns. - Continue regular therapy sessions for mental health support. - Monitor skin eruptions for changes and avoid shaving to reduce folliculitis episodes. - Practice stress management techniques to maintain mental wellness. - Follow up with your Shearer Screen Measurer And Trimmer as planned. Orders: Orders AMB Hemoglobin A1c Today E11.9 - Type 2 diabetes mellitus without complications Medications: Refilled clonazepam administer 30 minutes before bedtime 0.5 mg PO BEDTIME 30 tabs 0RF
[2024-07-13 13:59] VITALS: BP 120/60; PULSE 63; TEMP 36.5; O2SAT 98; BMI 30.7
--- OUTSIDE RECORDS SUMMARY | 2024-07-13 16:08 | XMS_ITS | Encounter Summary ---
Author Organization [employer] Address [address] [place] [address] [address] [place] [address] Care Team Providers Care Traffic Coordinator Name Role Phone Unavailable Primary Care Provider Unavailabl e Encounter Details Date Type Department Care Team (Latest Contact Info) Description 04/29/2021 Abstract [facility] CONVERSIONS Dental, Provider, DDS Social History Tobacco Use Types Packs/Day Years Used Date Smoking Tobacco: Never Assessed Comments Unknown Sex and Gender Information Value Date Recorded Sex Assigned at Female 01/19/2022 10:14 AM EDT Legal Sex Female 10:14 AM EDT Gender Identity Female 01/19/2022 10:14 AM EDT Sexual Orientation Straight 01/19/2022 10 :14 AM EDT documented as of this encounter Plan of Treatment Upcoming Encounters Date Type Department Care Team (Late st Contact Info) Description 08/09/2024 2:45 PM EDT Office Visit [facility] ADULT [facility]AL [address] [place] [address] Paul Mcmanus, REGAN [address] [place] [address] documented as of this encounter Visit Diagnoses Not on filedocumented in this encounter
--- OUTSIDE RECORDS SUMMARY | 2024-07-13 16:08 | XMS_ITS | Clinical Summary ---
Author Organization [employer] Address [address] [facility] [address] [place] [address] Care Team Providers Care Communication Manager Name Role Phone Unavailable Primary Care Provider Unavailabl e Allergies No known active allergies Medications Albuterol Sulfate, sensor, (ProAir Digihaler) 108 (90 Base) MCG/ACT aerosol powder Inhale 2 puffs every 4 (four) hours if needed. Active Ventolin HFA 108 (90 Base) MCG/ACT inhaler inhale 2 puffs every 6 hours as needed for shortness of breath or wheezing Active clonazePAM (KlonoPIN) 0.5 MG tablet TAKE 1 TABLET (0.5 MG) ORALLY BEDTIME ADMINISTER 30 MINUTES BEFORE BEDTIME 5 Active etonogestrel-elut ing 68 mg contraceptive implant Inject under the skin. Active polyethylene glycol, PEG, 3350 (Miralax) 17 g packet PLEASE SEE ATTACHED FOR DETAILED DIRECTIONS 4 Active chlorhexidine (Peridex) 0.12 % solution Use 15 mL in the mouth or throat if needed (for mouthwash 15 ml for 30 seconds, swish and spit) for up to 14 days. 473 mL 5 025 chlorhexidine (Peridex) 0.12 % solution Use 15 mL in the mouth or throat if needed (for mouthwash 15 ml for 30 seconds, swish and spit) for up to 14 days. 473 mL 5 025 Active Problems Problem Noted Date Diagnosed Date PCOS (polycystic ovarian syndrome) 05/18/2016 Prediabetes 05/18/2016 Obesity 11/12/2014 Asthma 10/29/2011 Encounters Date Type Department Care Team Description 06/15/2024 1:00 PM EDT Office Visit [facility] ADULT DENTAL [address] [place] [address] Gwen Casanova Encounter for dental examination (Primary Dx); Dental calculus; Dental plaque; Periodontal disease; Subgingival dental calculus; Supragingival dental calculus 04/18/2024 11:30 AM EST Office Visit [facility] ADULT DENTAL [address] [place] [address] Solorzano-Dyer, Rosa, DDS Gingivitis (Primary Dx); Dental plaque; Cold sensitivity from Last 3 Months Social History Tobacco Use Types Packs/Day Years Used Date Smoking Tobacco: Never Smokeless Tobacco: Never Tobacco Cessation:Counseling Given: Not Answered Comments Unknown Sex and Gender Information Value Date Recorded Sex Assigned at Female 01/19/2022 10:14 AM EDT Legal Sex Female 10:14 AM EDT Gender Identity Female 01/19/2022 10:14 AM EDT Sexual Orientation Straight 01/19/2022 10 :14 AM EDT Last Filed Vital Signs Vital Sign Reading Time Taken Comments Blood Pressure 124/78 06/15/2024 1:06 PM EDT Pulse - - Temperature - - Respiratory Rate - - Oxygen Saturation - - Inhaled Oxygen Concentration - - Weight - - Height - - Body Mass Index - - Plan of Treatment Upcoming Encounters Date Type Department Care Team (Late st Contact Info) Description 08/09/2024 2:45 PM EDT Office Visit [facility] ADULT [facility] [address] [place] [address] JianPaul raphael, REGAN [address] [place] [address] Health Maintenance Due Date Last Done Comments Depression Screening 1994 Diabetes: Hemoglobin A1C 1994 HIV Screening 1994 Lipid Panel 1994 SDOH Screening 1994 Alcohol/Substance Use Screening 2006 Family Planning (PISQ) 2009 Hepatitis C Screening 2012 Pneumococcal Vaccine: Pediatrics (0 to 5 Years) and At-Risk Patients (6 to 49) Years) (1 of 2 - PCV) 2013 Pap Smear 2015 DTaP/Tdap/Td Vaccines (9 - Td or Tdap) 05/21/2023 05/20/2013, 05/04/2012, 08/31/2006, Additional history exists COVID-19 Vaccine ( season) 2023 04/14/2021, 08/04/2020, 07/07/2020 Influenza Vaccine (#1) 2023 04/05/2013 Cervical Cancer Screening 2024 HPV/Cotest 2024 Dental Oral Exam 12/17/2024 06/15/2024, 04/29/2021 Dental Prophylaxis 12/17/2024 06/15/2024, 04/29/2021 Tobacco Screening 06/15/2025 06/15/2024 Dental X-Ray: Bitewings 06/16/2025 06/15/2024, 04/29 Dental X-Ray: Full Mouth 06/17/2027 025, 08/14/2021, 04/29/2021 Zoster Vaccines (1 of 2) 2044 RSV Patients and Patients Aged 60 years or older (1 - 1-dose 75+ series) 2069 HIB Vaccines Completed 06/01/1995, 11/20, 1994, Additional history exists IPV Vaccines Completed 08/09/1998, 11/20, 1994, Additional history exists Meningococcal Vaccine Aged Out 08/31/2006 No karen iris eligible based on patient's age to complete this topic HPV Vaccines Completed 01/31/2009, 08/21, 08/31/2006 Hepatitis B Vaccines Completed 05/10/2013, 04/04/2013, 1994, Additional history exists Hepatitis A Vaccines Aged Out No long er eligible based on patient's age to complete this topic RSV under 20 months Aged Out No longe r eligible based on patient's age to complete this topic Rotavirus Vaccines Aged Out No longer eligible based on patient's age to complete this topic Procedures Procedure Name Priority Date/Time Associated Diagnosis Comments ORAL HYGIENE INSTRUCTIONS Routine 2024 1:00 PM EDT Dental calculus Dental plaque Periodontal disease Subgingival dental calculus Supragingival dental calculus INTRAORAL - COMPLETE SERIES OF RADIOGRAPHIC IMAGES Routine 06/15/2024 1:00 PM EDT Dental calculus Dental plaque Periodontal disease Subgingival dental calculus Supragingival dental calculus COMPREHENSIVE PERIODONTAL EVALUATION - NEW OR ESTABLISHED PATIENT Routine 06/15/2024 1:00 PM EDT CASE PRESENTATION, DETAILED AND EXTENSIVE TREATMENT PLANNING Routine 06/15/2024 1:00 PM EDT PERIODIC ORAL EVALUATION - ESTABLISHED PATIENT Routine 06/15/2024 1:00 PM EDT PROPHYLAXIS - ADULT Routine 06/15/2024 1 :00 PM EDT Dental calculus Dental plaque Periodontal disease Subgingival dental calculus Supragingival dental calculus CASE PRESENTATION, DETAILED AND EXTENSIVE TREATMENT PLANNING Routine 04/18/2024 11:30 AM EST Gingivitis Dental plaque Cold sensitivity INTRAORAL - PERIAPICAL FIRST RADIOGRAPHIC IMAGE Routine 04/18/2024 11:30 AM EST Gingivitis Dental plaque Cold sensitivity PALLIATIVE (EMERGENCY) TREATMENT OF DENTAL PAIN - MINOR PROCEDURE Routine 04/18/2024 11:30 AM EST Gingivitis Dental plaque Cold sensitivity from Last 3 Months Insurance [facility] MEDICAID STAND ADULT
== END 2024-07-13 14:37 | disposition home or self-care (01) ==
LOC: HO.HMCH 13:46
PROVIDERS: PCP Internal Medicine; Visit Provider Internal Medicine
DX: F41.1 Generalized anxiety disorder (principal); E11.9 Type 2 diabetes mellitus without complications; E28.2 Polycystic ovarian syndrome

== ENCOUNTER → 2024-07-13 13:45 | Outpatient (BNVA) | payer OTHER, SELFPAY | PROVIDERS: PCP Internal Medicine; Visit Provider Internal Medicine | DX: F41.1 Generalized anxiety disorder (principal); E11.9 Type 2 diabetes mellitus without complications; E28.2 Polycystic ovarian syndrome | CPT/HCPCS: 83036; 99212 ==

== ENCOUNTER 2024-07-27 13:00 | Outpatient (REF) | payer OTHER, SELFPAY ==
--- OUTSIDE RECORDS SUMMARY | 2024-07-27 14:09 | XMS_ITS | Clinical Summary ---
Author Organization [facility] Address [address] [place] [address] Care Team Providers Care Flatbed Company Driver Name Role Phone Michael Villalobos MD Primary Care Provider [phone] Allergies No known active allergies Medications Medication Sig Dispensed Refills Start Date End Date Status Etonogestrel (IMPLANON) 68 MG Implant Inject into the skin. 0 Active ALBUTEROL SULFATE 108 (90 BASE) MCG/ACT Aero Soln Inhale 2 Puffs into the lungs every 6 hours as needed for Cough, Wheezing or Shortness of Breath. 1 Inhaler 0 12/31/2015 Active MetFORMIN HCl 500 MG TABLET SR 24 HRIndications:Predia betes,Obesity, unspecified obesity severity, unspecified obesity type,PCOS (polycystic ovarian syndrome) Take 500 mg by mouth 4 times daily. 0 Active Active Problems Problem Noted Date PCOS (polycystic ovarian syndrome) 05/18 Prediabetes 05/18/2016 Obesity 11/12/2014 Asthma 11/12/2014 Immunizations Name Administration Dates Next Due DTaP 05/20/2013 Family History Medical History Relation Name Comments CA Breast Maternal Grandmother CA Colon Negative Hx CA Ovarian Negative Hx CA Prostate Negative Hx CA of Pancreas Negative Hx Uterine Cancer Negative Hx Relation Name Status Comments Brother Alive Father Alive Maternal Grandmother breast cancer Mother Alive Paternal Grandmother Alive sm Sister Alive asthma Social History Tobacco Use Types Packs/Day Years Used Date Smoking Tobacco: Never Smokeless Tobacco: Never Alcohol Use Standard Drinks/Week Comments No 0 (1 standard drink = 0.6 oz pur e alcohol) Sex Assigned at Date Recorded Not on file Last Filed Vital Signs Vital Sign Reading Time Taken Comments Blood Pressure 118/76 01/26/2018 9:47 AM EST Pulse 80 01/26/2018 9:47 AM EST Temperature 36.8 ??C (98.3 ??F) 01/26/2018 9:47 AM ES T Respiratory Rate 14 01/26/2018 9:47 AM EST Oxygen Saturation 98% 01/26/2018 9:47 AM EST Inhaled Oxygen Concentration - - Weight 101.4 kg (223 lb 9.6 oz) 01/26/2018 9:47 AM EST Height 165.1 cm (5' 5 ) 01/26/2018 9:47 AM EST Body Mass Index 37.21 01/26/2018 9:47 AM EST Plan of Treatment Health Maintenance Due Date Last Done Comments Covid-19 Vaccine (#1) 1994 PNEUMOCOCCAL VACCINE FOR HIG H RISK PATIENTS (#1) 2013 CERVICAL CANCER SCREENING 01/05/2019 01/06/2016 BASELINE HEALTH EXAM 18-39 11/13/2019 11/12/2014 CHOLESTEROL SCREENING 05/18/2021 05/18/2016, 015 DTAP/TDAP/TD (2 - Tdap) 05/21/2023 05/20/2013 BMI CHECK/ADVISE 03/22/2024 01/26/2018, , 05/18/2016, Additional history exists INFLUENZA (Season Ended) 2024 Care Teams Flatbed Company Driver Relationship Specialty Start Date End Date Michael Villalobos MD [address] [place] [id number] PCP - General Internal Medicine 11/12/14
--- OUTSIDE RECORDS SUMMARY | 2024-07-27 14:09 | XMS_ITS | Encounter Summary ---
Author Organization [employer] Address [address] [facility] [address] [place] [address] Care Team Providers Care Key Account Coordinator Name Role Phone Unavailable Primary Care Provider Unavailabl e Encounter Details Date Type Department Care Team (Latest Contact Info) Description 04/29/2021 Abstract [facility] CONVERSIONS Dental, Provider, DDS Social History Tobacco [...] Description 08/09/2024 2:45 PM EDT Office Visit [facility] ADULT DENTAL [address] [place] [address] Paul Mcmanus, REGAN [address] [place] [address] documented as of this encounter Visit Diagnoses Not on filedocumented in this encounter
--- OUTSIDE RECORDS SUMMARY | 2024-07-27 14:09 | XMS_ITS | Clinical Summary ---
Author Organization [employer] Address [address] [place] [address] Care Team Providers Care Forensic Analyst Name Role Phone Unavailable Primary Care Provider [...] Description 06/15/2024 1:00 PM EDT Office Visit [facility] ADULT DENTAL [address] [place] [address] Gwen Casanova Encounter for dental examination (Primary Dx); Dental calculus; Dental plaque; Periodontal disease; Subgingival dental calculus; Supragingival dental calculus from Last 3 Months Social History Tobacco [...] Description 08/09/2024 2:45 PM EDT Office Visit [facility] ADULT DENTAL [address] [place] [address] Paul Mcmanus, DMD [address] [place] [address] Health Maintenance Due Date Last Done Comments [...] disease Subgingival dental calculus Supragingival dental calculus from Last 3 Months Insurance [facility] MEDICAID STAND ADULT
--- OUTSIDE RECORDS SUMMARY | 2024-07-27 14:09 | XMS_ITS | Encounter Summary ---
Author Organization [facility] Address [address] [place] [address] Care Team Providers Care Boom Pump Operator Name Role Phone Michael Villalobos MD Primary Care Provider [phone] Encounter Details Date Type Department Care Team Description 12/19/2014 Release of Information Medical Records [address] [place] [id number] Abstract, Provider Social History Tobacco Use Types Packs/Day Years Used Date Smoking Tobacco: Never Alcohol Use Standard Drinks/Week Comments No 0 (1 standard drink = 0.6 oz pur e alcohol) Sex Assigned at Date Recorded Not on file documented as of this encounter Plan of Treatment Not on file documented as of this encounter Visit Diagnoses Not on filedocumented in this encounter Care Teams Boom Pump Operator Relationship Specialty Start Date End Date Michael Villalobos MD [address] [place], [place] [id number] PCP - General Internal Medicine 11/12/14 documented as of this encounter
[2024-07-27 14:25] LABS: Syphilis Screen Nonreactive (Nonreactive)
[2024-07-27 14:37] LABS: HIV AB/AG Nonreactive (Nonreactive); HIV Num 1 0.06 S/CO (0.00-0.99); ~HepC Num1 0.07 S/CO (0.00-0.79); ~Hepatitis C Antibody Nonreactive (Nonreactive)
[2024-07-27 14:57] LABS: HBsAGNum1 0.28 S/CO (0.00-0.99); Hepatitis B Surface Antigen Negative (Negative)
== END 2024-07-27 13:01 | disposition home or self-care (01) ==
LOC: HO.LAB 13:00
PROVIDERS: PCP Internal Medicine; Visit Provider Advanced Practice Midwife
DX: Z11.3 Encounter for screening for infections with a predominantly sexual mode of transmission (principal)
CPT/HCPCS: 36415; 86780; 86803; 87340; 87389

== ENCOUNTER 2024-08-31 10:34 | Outpatient (REF) | payer OTHER, SELFPAY ==
[2024-08-31 11:34] LABS: Appearance Urine Clear; Color Urine Yellow; Glucose Urine UA Negative (Negative); Leukocyte Esterase Urine Negative (Negative); Nitrite Urine Negative (Negative); PH >= 9.0 (5.0-9.0); Specific Gravity - Urine 1.025 (1.005-1.025); Urine Blood Negative (Negative); Urine Ketones Negative (Negative); Urine Protein Trace mg/dL (Neg-Trace)
[2024-08-31 11:37] LABS: Hematocrit 36.6 % (37.0-47.0); Hemoglobin 12.4 g/dl (12.0-16.0); Mean Corpuscular HGB Conc 33.9 g/dl (31.0-35.0); Mean Corpuscular Hemoglobin 29.3 pg (27.0-33.0); Mean Corpuscular Volume 86.5 fL (80.0-98.0); Mean Platelet Volume 10.9 fL (9.4-12.3); Platelet Count 204 X10*3/uL (160-400); Red Blood Count 4.23 X10*6/uL (4.20-5.50); Red Cell Distribution Width 12.5 % (11.0-16.0); White Blood Count 6.8 X10*3/uL (4.8-10.8)
[2024-08-31 12:00] LABS: Estimated Average Glucose 97 mg/dL
[2024-08-31 12:04] LABS: Creatinine Urine 191.84 mg/dL; Microalbum/Creatinine Ratio Ur 4.6 ug/mg cr (<30)
[2024-08-31 12:07] LABS: Alanine Aminotransferase 14 U/L (0-31); Albumin Level 4.6 g/dL (3.5-5.0); Alkaline Phosphatase 60 U/L (39-117); Anion Gap 11 (12-20); Aspartate Amino Transferase 21 U/L (5-31); Bilirubin Direct 0.2 mg/dL (0.0-0.5); Bilirubin Total 0.4 mg/dL (0.0-1.0); Blood Urea Nitrogen 11 mg/dL (9-16); Calcium 9.1 mg/dL (8.4-10.2); Carbon Dioxide 25 mmol/L (22-29); Chloride 107 mmol/L (96-108); Cholesterol 147 mg/dL (<200); Estimated Glomerular Filt Rate > 60; Glucose Random 80 mg/dL (60-115); HDL Cholesterol 44 mg/dL (>40); LDL Cholesterol Calculated 89 mg/dL (<100); Potassium 3.7 mmol/L (3.3-5.1); Sodium 139 mmol/L (135-145); Total Protein 7.1 g/dL (6.5-8.0); Triglycerides 74 mg/dL (<150)
--- OUTSIDE RECORDS SUMMARY | 2024-08-31 12:23 | XMS_ITS | Clinical Summary ---
Author Organization [employer] Address [address] [facility] [address] [place] [address] Care Team Providers Care Head Doffer Name Role Phone Unavailable Primary Care Provider [...] SEE ATTACHED FOR DETAILED DIRECTIONS 4 Active Active Problems Problem Noted Date Diagnosed Date PCOS (polycystic ovarian syndrome) 05/18/2016 Prediabetes 05/18/2016 Obesity 11/12/2014 Asthma 10/29/2011 Encounters Date Type Department Care Team Description 06/15/2024 1:00 PM EDT Office Visit [facility] ADULT DENTAL [address] [place] [address] Gwen Casanova Encounter for dental examination (Primary [...] Care Team (Late st Contact Info) Description 11/23/2024 2:00 PM EDT Office Visit [facility] ADULT DENTAL [address] [place] [address] Gwen Casanova 11/30/2024 11:00 AM EDT Office Visit [facility] ADULT DENTAL [address] [place] [address] Gwen Casanova Health Maintenance Due Date Last Done Comments Depression Screening 1994 Diabetes: Hemoglobin A1C 1994 HIV Screening 1994 Lipid Panel 1994 SDOH Screening 1994 Disability Screening 1994 Alcohol/Substance Use Screening 2006 Family Planning (PISQ) 2009 Hepatitis C Screening 2012 Pneumococcal Vaccine: Pediatrics (0 to 5 Years) and At-Risk Patients (6 to 49) Years) (1 of 2 - PCV) 2013 Pap Smear 2015 DTaP/Tdap/Td Vaccines (9 - Td or Tdap) 05/21/2023 05/20/2013, 05/04/2012, 08/31/2006, Additional history exists COVID-19 Vaccine ( season) 2023 04/14/2021, 08/04/2020, 07/07/2020 Cervical Cancer Screening 2024 HPV/Cotest 2024 Influenza Vaccine (Season Ended) 2024 04/05/2013 Dental Oral Exam 12/17/2024 06/15/2024, 04/29/2021 Dental [...] on patient's age to complete this topic Meningococcal B Vaccine Aged Out No l onger eligible based on patient's age to complete [...]
[2024-08-31 12:24] LABS: Thyroid Stimulating Hormone 0.98 uIU/mL (0.32-4.0)
== END 2024-08-31 10:35 | disposition home or self-care (01) ==
LOC: HO.LAB 10:34
PROVIDERS: PCP Internal Medicine; Visit Provider Internal Medicine
DX: F41.1 Generalized anxiety disorder (principal); E28.2 Polycystic ovarian syndrome
CPT/HCPCS: 36415; 80048; 80061; 80076; 81003; 82043; 82570; 83036; 84443; 85027

== ENCOUNTER 2024-11-02 07:52 | Outpatient (AMB) | payer OTHER, SELFPAY ==
--- NOTE | 2024-11-02 07:53 | AM.OFFWIN_ITS ---
Intake Vital Signs 11/02/24 07:54 Height 5 ft 4 in Weight 185 lb 5 oz BMI 31.8 Pulse 74 Pulse Source Pulse Oximeter Temp 98.5 F Temp Source Oral Pulse Oximetry (%) 98 Oxygen Delivery Method Room Air Intake Visit Reasons: EP Thrush? Patient Tobacco Use Status: Never used Tobacco Mrb Engineer Required: No Is last menstrual period known: No Post menopausal: No Patient : No Allergies metformin Allergy (Intermediate, Verified 11/02/24 07:57) Diarrhea Do you need a note to return to daycare/school/sports/work: No HPI HPI Comments History of Present Illness Details History of Present Illness - The patient is a 29-year-old female pr esenting with symptoms of oral candidiasis. - She reports a significant buildup of t hrush, which she attempted to scrape off due to discomfort. - The condition has been persistent for a while, although the exact duration is unspecified. - The patient denies frequent occurrence s of thrush and attributes the current episode to inhaler use without rinsing the mouth afterward. - She reports no fever, sore throat, or cough associated with the condition. - The patient is currently using Flovent inhaler, which she started post- surgery. - She denies fever, chills, BASILIO, sore thr oat, or bad taste. Physical Exam General: Cooperative, healthy appearing, comfortable, no acute distress and well developed Orientation: Patient oriented x3 Limitations: No limitations Throat: Oropharynx is pink, uvula is midline. No exudates noted. Tongue is covered in a white thick coating. Tongue is midline with no lesions. Respiratory: Normal respiratory effort and able to speak in complete sentences. Clear to auscultation bilaterally Cardiovascular: Regular rate and rhythm. Normal S1 and S2 Neck: No lymphadenoapthy noted. Skin: No rashes or lesions noted Patient was informed and verbally consented to the use of an ambient scribe for clinic note documentation during this visit. [facility] Medical History Routine screening for STI (sexually transmitted infection) Encounter for surveillance of Nexplanon subdermal contraceptive Well woman exam with routine gynecological exam H. pylori infection Encounter for removal and reinsertion of Nexplanon Annual physical exam Obesity (BMI 35.0-39.9 without comorbidity) Folliculitis Right leg pain COVID-19 Back pain Obesity Morbid obesity Generalized anxiety disorder Metabolic syndrome Abnormal TSH Pre-diabetes HTN (hypertension) PCOS (polycystic ovarian syndrome) Headache Vertigo Bronchitis delivery delivered Asthma Surgical History History of gastric surgery History of Family History Father No problems noted. Mother Asthma Family/Other Asthma Maternal Grandmother Breast cancer Other Mental health disorder Social History Household Members: Family Household Members Other:: son age 10 Housing: House Are you a primary reservoir caretaker to a significant other at home: Yes (son age 10, supportive mother lives next door) Do you presently have visiting nurse or other home services: No 75 years or older and lives alone: No Alcohol intake: never Patient Tobacco Use Status: Never used Tobacco e-Cigarette/Vaping Use: Never Used Second Hand Smoke Exposure: No Patient : No service: No Current occupational status: employed 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 occupation: [employer] service at [employer] Current occupational exposures/hazards: No Gender identity: Female Cognitive needs: No Hearing needs: No Vision needs: No Female Reproductive History Menstrual Age of Menarche: 8 Review of Systems Const All systems reviewed & are unremarkable except as noted in HPI and below Physical Exam Vital Signs: Last Vital Signs Temp 98.5 F 11/02/24 07:54 Pulse 74 11/02/24 07:54 Pulse Ox 98 11/02/24 07:54 Oxygen Delivery Method Room Air 11/02/24 07:54 BMI result Body Mass Index 31.8 Assessment & Plan Assessment & Plan (1) Thrush: Code(s): B37.0 - Candidal stomatitis Plan Most likely thrush due to her inhaler use Plan - Prescribe antifungal swish and swallow medication for oral candidiasis. - Prescribe a single dose of Diflucan (fluconazole) to expedite resolution of the infection. Medications: New nystatin administer 1/2 of dose in each side of the mouth 5 mL buccal qid 140 mL 0RF 7 days fluconazole may repeat second dose 72 hrs after first dose if symptoms persist 150 mg PO Q3D 2 tabs 0RF Coding Level of Care Code Est Pt Level 3 (74299) Diagnoses Thrush B37.0
[2024-11-02 07:54] VITALS: PULSE 74; TEMP 36.9; O2SAT 98; BMI 31.8
--- OUTSIDE RECORDS SUMMARY | 2024-11-02 07:54 | XMS_ITS | Clinical Summary ---
Author Organization [employer] Address [address] [place] [address] [address] [place] [address] Care Team Providers Care Polisher Sand Name Role Phone Unavailable Primary Care Provider [...] 05/18/2016 Prediabetes 05/18/2016 Obesity 11/12/2014 Asthma 10/29/2011 Social History Tobacco Use Types Packs/Day Years [...] Description 11/23/2024 2:00 PM EDT Office Visit [facility] ADULT DENTAL [address] [place] [address] CasanovaRainasa 11/30/2024 11:00 AM EDT Office Visit [facility] ADULT DENTAL [address] [place] [address] Gwen Casanova Health Maintenance Due Date Last Done Comments Depression Screening 1994 Diabetes: Hemoglobin A1C 1994 HIV Screening 1994 Lipid Panel 1994 SDOH Screening 1994 Disability Screening 1994 Alcohol/Substance Use Screening 2006 Family Planning (PISQ) 2009 Hepatitis C Screening 2012 Pneumococcal Vaccine: Pediatrics (0 to 5 Years) and At-Risk Patients (6 to 49) Years (1 of 2 - PCV) 2013 Pap Smear 2015 DTaP/Tdap/Td Vaccines (9 - Td or Tdap) 05/21/2023 05/20/2013, 05/04/2012, 08/31/2006, Additional history exists COVID-19 Vaccine ( season) 2023 04/14/2021, 08/04/2020, 07/07/2020 Cervical Cancer Screening 2024 HPV/Cotest 2024 Influenza Vaccine (#1) 2024 04/05/2013 Dental Oral Exam 12/17/2024 06/15/2024, [...] Procedure Name Priority Date/Time Associated Diagnosis Comments PROPHYLAXIS - ADULT Routine 06/15/2024 1 :00 PM EDT Dental calculus Dental plaque Periodontal disease Subgingival dental calculus Supragingival dental calculus INTRAORAL - COMPLETE SERIES OF RADIOGRAPHIC IMAGES Routine 06/15/2024 1:00 PM EDT Dental calculus Dental plaque Periodontal disease Subgingival dental calculus Supragingival dental calculus PERIODIC ORAL EVALUATION - ESTABLISHED PATIENT Routine 06/15/2024 1:00 PM EDT from Last 3 Months or Most Recently Relevant to Health Maintenance Insurance [facility] MEDICAID STAND ADULT
== END 2024-11-02 08:21 | disposition home or self-care (01) ==
PROVIDERS: PCP Internal Medicine; Visit Provider Physician Assistant Medical
DX: B37.0 Candidal stomatitis (principal)

== ENCOUNTER → 2024-11-02 07:52 | Outpatient (BNVA) | payer OTHER, SELFPAY | PROVIDERS: PCP Internal Medicine; Visit Provider Physician Assistant Medical | DX: B37.0 Candidal stomatitis (principal) | CPT/HCPCS: 99212 ==

== ENCOUNTER 2025-01-18 13:17 | Outpatient (AMB) | payer OTHER, SELFPAY ==
--- NOTE | 2025-01-18 13:22 | MHC.PC.OV ---
Vital Signs 01/18/25 13:25 Height 5 ft 4 in Weight 181 lb 8 oz BMI 31.2 BP 120/64 Blood Pressure Location Lt brachial Position Sitting Pulse 84 Pulse Source Pulse Oximeter Temp 96.4 F L Temp Source Temporal Artery Scan Pulse Oximetry (%) 98 Oxygen Delivery Method Room Air Intake Visit Reasons: 6mth f/u Intake Note: Patient is here to follow up on GERD, Asthma, DM. Academic Counselor Required: No Insulation Board Calender Operator: Not Required per policy Accompanied by: Self / Same As Patient Allergies metformin Allergy (Intermediate, Verified 01/18/25 13:25) Diarrhea Tobacco use date assessed: 01/18/25 Dental Screening Dental Screen Date: 07/13/24 [facility] Medical History Routine screening for STI (sexually transmitted infection) Encounter for surveillance of Nexplanon subdermal contraceptive Well woman exam with routine gynecological exam H. pylori infection Encounter for removal and reinsertion of Nexplanon Annual physical exam Obesity (BMI 35.0-39.9 without comorbidity) Folliculitis Right leg pain COVID-19 Back pain Obesity Morbid obesity Generalized anxiety disorder Metabolic syndrome Abnormal TSH Pre-diabetes HTN (hypertension) PCOS (polycystic ovarian syndrome) Headache Vertigo Bronchitis delivery delivered Asthma Surgical History History of gastric surgery History of Family History Father No problems noted. 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 1. Little interest or pleasure in doing things: several days 2. Feeling down, depressed, or hopeless: several days 3. Trouble falling or staying asleep, or sleeping too much: several days 4. Feeling tired or having little energy: more than half the days 5. Poor appetite or overeating: more than half the days 6. Feeling bad about yourself - or that you are a failure or have let yourself or your family down: not at all 7. Trouble concentrating on things, such as reading the newspaper or watching television: several days 8. Moving or speaking so slowly that other people could have noticed. Or the opposite - being so fidgety or restless that you have been moving around a lot more than usual: not at all 9. Thoughts that you would be better off or of hurting yourself in some way: not at all Total score: 8 Depression Screening Interpretation: Positive Depression Screening Done: Yes Source: Developed by Drs. Alessio Gómez, Lizzeth Gao, Deion Adhikari and colleagues, with an educational jyothi from [employer]. Thrive Questionnaire Date Thrive assessed: 07/13/24 I am a: Patient What is your living situation today?: I have a steady place to live Within the past 12 months, did the food you bought not last and you didn't have the money to get more?: Never true Within the past 12 months, did you worry whether your food would run out before you got money to buy more?: Never true Do you have trouble paying for medicines?: No Do you have trouble getting transportation to medical appointments?: No Do you have trouble paying your heating and electricity bill?: No Do you have trouble taking care of your child, family member or friend?: No Do you have trouble with day-to-day activities such as bathing, preparing meals, shopping, managing finances, etc.?: No Are you currently unemployed and looking for a job?: No Are you interested in more education?: No Please select the resources that you would like help with: None Currently or been in a relationship where the following occur: No concerns reported THRIVE Score: 0 AUDIT C Alcohol Use Questionnaire (AUDIT-C) 1. How often do you have a drink containing alcohol?: Never Total Score: 0 RAY-7 AMB Questionnaire RAY-7 Date RAY - 7 assessed: 01/18/25 Feeling nervous, anxious, or on edge: 2 = More than half the days Not being able to stop or control worryin = More than half the days Worrying too much about different things: 2 = More than half the days Trouble relaxin = Several days Being so restless that it is hard to sit still: 0 = Not at all Becoming easily annoyed or irritable: 1 = Several days Feeling afraid as if something awful might happen: 1 = Several days Total RAY-7 score (0-4 normal; 5-9 mild; 10-14 moderate; 15-21 severe): 9 Source: Developed by Drs. Alessio Gómez, Lizzeth Gao, Deion Adhikari and colleagues, with an educational jyothi from [employer]. Physical exam (Primary Care) Vital Signs: Last Vital Signs Temp 96.4 F L 01/18/25 13:25 Pulse 84 01/18/25 13:25 BP 120/64 01/18/25 13:25 Pulse Ox 98 01/18/25 13:25 Oxygen Delivery Method Room Air 01/18/25 13:25 BMI result Body Mass Index 31.2 Tobacco/Smoking Status: Tobacco use Status Tobacco use date assessed 01/18/25 01/18/25 13:34 Patient Tobacco Use Status Never used Tobacco 01/18/25 13:23 Tobacco use type 11/05/22 15:25 e-Cigarette/Vaping Use Never Used 01/18/25 13:23 PHQ-9: PHQ-9 Score PHQ-9: Total score 8 01/18/25 13:23 Depression Screening Interpretation: Positive Thrive Assessment: Date of Thrive Assessment Date Thrive assessed 07/13/24 01/18/25 13:23 Currently or been in a relationship where the following occur: No concerns reported Results AMB Hemoglobin A1c AMB Hemoglobin A1c 5.0 % Last Edit by BRET Coffman on 01/18/25 13:58 Results Reviewed Results Reviewed: Laboratory Last Values Hgb A1c (Clinic) 5.0 % (4.0-6.0) 01/18/25 13:24 Coding Level of Care Code Est Pt Level 4 (49400) Complex EM visit Add On G2211 Diagnoses Thrush, oral B37.0 Assessment & Plan Assessment & Plan (1) Thrush, oral: Code(s): B37.0 - Candidal stomatitis Category: Medical Plan: History of Present Illness - The patient is a 29-year-old female presenting with concerns of recurrent oral candidiasis and onychomycosis. - Oral candidiasis: Initially noticed around the end of October or November, with a recurrent white coating on the tongue. - Previously treated at a walk-in clinic but has recurred, possibly due to improper cleaning of the inhaler mouthpiece. - Onychomycosis: Fungal infection on the toenail, treated with a topical cream inconsistently. - Recent blood work in August was normal, and the patient declined the influenza vaccination during this visit. Social History - The patient does not smoke. - The patient is experiencing anxiety related to her son's care at school, as he has an intellectual disability and requires assistance with bathroom use. Review of Systems - Oral: Reports recurrent white coating on the tongue. - Dermatological: Reports fungal infection on the toenail. - Psychological: Reports anxiety related to her son's care at school. Physical Exam General: Cooperative and healthy appearing Nutritional Appearance: Well nourished Orientation/consciousness: Patient oriented x3 Limitations: No limitations Head: Normal to inspection General: Appearance normal, both eyes and all related structures Neck: Normal visual inspection Chest: Normal palpation of entire chest wall Respiratory: Albuterol as needed ormal respiratory effort Neurology: Patient oriented x3 Results - Labs: Blood work in August was reported as normal. Plan - Prescribed clotrimazole lozenges for oral candidiasis, to be used four times daily for two weeks. - Refill prescribed for topical antifungal cream for onychomycosis. - Discussed the importance of cleaning the inhaler mouthpiece to prevent recurrence of oral candidiasis. - Follow-up scheduled in six months. Discussion Notes I discussed with the patient the recurrence of oral candidiasis and prescribed clotrimazole lozenges to be used four times daily for two weeks. We also talked about the importance of cleaning the inhaler mouthpiece to prevent future occurrences. A refill for the topical antifungal cream for onychomycosis was provided. The patient declined the influenza vaccination. We agreed on a follow-up appointment in six months to reassess her condition and any further needs. Patient Instructions - Use clotrimazole lozenges four times daily for two weeks. - Apply the topical antifungal cream as prescribed for onychomycosis. - Clean the inhaler mouthpiece after each use to prevent oral candidiasis. - Follow up in six months for reassessment. Orders: Orders AMB Hemoglobin A1c Today E11.9 - Type 2 diabetes mellitus without complications Medications: New clotrimazole 10 mg mucous membrane TID 42 tabs 0RF 14 days Refilled ketoconazole 2% 1 appl topical DAILY 30 grams 1RF clonazepam administer 30 minutes before bedtime 0.5 mg PO BEDTIME 30 tabs 0RF
[2025-01-18 13:25] VITALS: BP 120/64; PULSE 84; TEMP 35.8; O2SAT 98; BMI 31.2
--- OUTSIDE RECORDS SUMMARY | 2025-01-18 16:13 | XMS_ITS | Encounter Summary ---
Author Organization [employer] Address [address] [place] [address] [address] [place] [address] Care Team Providers Care Lap Cutter Name Role Phone Unavailable Primary Care Provider Unavailabl e Reason for Visit * Reason Comments Med Refill Encounter Details Date Type Department Care Team (Late st Contact Info) Description 11/21/2024 Refill [facility] ADULT DENTAL [address] [place] [address] Rosa Owen DDS [address] [place] [address] Social History Tobacco Use Types Packs/Day Years Used Date Smoking Tobacco: Never Smokeless Tobacco: Never Comments Unknown Sex and Gender Information Value Date Recorded Sex Assigned at Female 01/19/2022 10:14 AM EDT Legal Sex Female 10:14 AM EDT Gender Identity Female 01/19/2022 10:14 AM EDT Sexual Orientation Straight 01/19/2022 10 :14 AM EDT documented as of this encounter Miscellaneous Notes * Telephone Encounter - Rosa Owen DDS - 11/22/2024 8:56 AM EDT Approving, but needs appt for additional refills. documented in this encounter Plan of Treatment Not on file documented as of this encounter Visit Diagnoses Not on filedocumented in this encounter
--- OUTSIDE RECORDS SUMMARY | 2025-01-18 16:13 | XMS_ITS | Clinical Summary ---
Author Organization [employer] Address [address] [place] [address] [address] [place] [address] Care Team Providers Care Lunch Truck Driver Name Role Phone Unavailable Primary Care Provider [...] ORALLY BEDTIME ADMINISTER 30 MINUTES BEFORE BEDTIME 04/02/19 25 Active etonogestrel-elu ting 68 mg contraceptive implant Inject under the skin. Active polyethylene glycol, PEG, 3350 (Miralax) 17 g packet PLEASE SEE ATTACHED FOR DETAILED DIRECTIONS 05/23/19 24 Active chlorhexidine (Peridex) 0.12 % solution SWISH 15MLS IN MOUTH FOR 30 SECONDS THEN SPIT NEEDED FOR UP TO 14 DAYS 473 mL 01/05/20 25 Active chlorhexidine (Peridex) 0.12 % solution SWISH 15MLS IN MOUTH FOR 30 SECONDS THEN SPIT NEEDED FOR UP TO 14 DAYS 473 mL 11/23/19 25 025 Discontinued Active Problems Problem Noted Date Diagnosed Date PCOS (polycystic ovarian syndrome) 05/18/2016 Prediabetes 05/18/2016 Obesity 11/12/2014 Asthma 10/29/2011 Encounters Date Type Department Care Team Description 01/04/2025 Refill [facility] ADULT DENTAL [address] [place] [address] Rosa Owen DDS 12/21/2024 11:00 AM EDT Office Visit [facility] ADULT DENT[facility] [address] [place] [address] Casanova, Gwen Dental calculus (Primary Dx); Dental plaque 12/14/2024 Travel 11/30/2024 11:00 AM EDT Office Visit [facility] [address] [facility] [place] [address] Casanova, Gwen Subgingival dental calculus (Primary Dx); Supragingival dental calculus 11/28/2024 Travel 11/21/2024 Refill [facility] ADULT D[facility] [address] [place] [address] Solorzano-Dyer, Rosa, DDS from Last 3 Months Social History Tobacco [...] Sign Reading Time Taken Comments Blood Pressure 128/86 12/21/2024 10:59 AM EDT Pulse - - Temperature - - Respiratory Rate - - Oxygen Saturation - - Inhaled Oxygen Concentration - - Weight - - Height - - Body Mass Index - - Plan of Treatment Health Maintenance Due Date [...] 05/21/2023 05/20/2013, 05/04/2012, 08/31/2006, Additional history exists Cervical Cancer Screening 2024 HPV/Cotest 2024 COVID-19 Vaccine ( season) 2024 04/14/2021, 08/04/2020, 07/07/2020 Influenza Vaccine (#1) 2024 04/05/2013 Dental Oral Exam 12/17/2024 06/15/2024, 04/29/2021 Dental Prophylaxis 12/17/2024 06/15/2024, 04/29/2021 Dental X-Ray: Bitewings 06/16/2025 06/15/2024, 04/29 Tobacco Screening 12/21/2025 12/21/2024 Dental X-Ray: Full Mouth 06/17/2027 025, 08/14/2021, [...] Procedure Name Priority Date/Time Associated Diagnosis Comments CASE PRESENTATION, DETAILED AND EXTENSIVE TREATMENT PLANNING Routine 12/21/2024 11:00 AM EDT ORAL HYGIENE INSTRUCTIONS Routine 12/21/2024 11:00 AM EDT Dental calculus Dental plaque LR PERIODONTAL SCALING AND ROOT PLANING - 4 OR MORE TEETH PER QUADRANT Routine 12/21/2024 11:00 AM EDT Dental calculus Dental plaque UR PERIODONTAL SCALING AND ROOT PLANING - 4 OR MORE TEETH PER QUADRANT Routine 12/21/2024 11:00 AM EDT Dental calculus Dental plaque CASE PRESENTATION, DETAILED AND EXTENSIVE TREATMENT PLANNING Routine 11/30/2024 11:00 AM EDT ORAL HYGIENE INSTRUCTIONS Routine 11/30/2024 11:00 AM EDT Subgingival dental calculus Supragingival dental calculus LL PERIODONTAL SCALING AND ROOT PLANING - 4 OR MORE TEETH PER QUADRANT Routine 11/30/2024 11:00 AM EDT Subgingival dental calculus Supragingival dental calculus UL PERIODONTAL SCALING AND ROOT PLANING - 4 OR MORE TEETH PER QUADRANT Routine 11/30/2024 11:00 AM EDT Subgingival dental calculus Supragingival dental calculus PROPHYLAXIS - ADULT Routine 06/15/2024 1 :00 [...] Most Recently Relevant to Health Maintenance Insurance [facility] MEDICAID STAND ADULT
--- OUTSIDE RECORDS SUMMARY | 2025-01-18 16:13 | XMS_ITS | Encounter Summary ---
Author Organization [email or web address] Address [address] [place] [address] Care Team Providers Care Health Safety Coordinator Name Role Phone Unavailable Primary Care Provider Unavailabl e Encounter Details Date Type Department Care Team (Latest Contact Info) Description 04/29/2021 Abstract [facility] CONVERSIONS Dental, Provider, DDS Social History Tobacco [...]
--- OUTSIDE RECORDS SUMMARY | 2025-01-18 16:13 | XMS_ITS | Encounter Summary ---
Author Organization [employer] Address [address] [place] [address] [address] [place] [address] Care Team Providers Care Name Plate Stamping Machine Operator Name Role Phone Unavailable Primary Care Provider Unavailabl e Reason for Visit * Reason Comments Med Refill Encounter Details Date Type Department Care Team (Late st Contact Info) Description 01/04/2025 Refill C [facility]ULT D[facility] [address] [place] [address] Rosa Owen DDS [address] [place] [address] Social History Tobacco Use Types Packs/Day Years [...] Telephone Encounter - Rosa Owen DDS - 01/04/2025 2:18 PM EDT Approving, but needs appt for additional refills. documented in this encounter Plan of Treatment Not on file documented as of this encounter Visit Diagnoses Not on filedocumented in this encounter
== END 2025-01-18 13:49 | disposition home or self-care (01) ==
LOC: HO.HMCH 13:17
PROVIDERS: PCP Internal Medicine; Visit Provider Internal Medicine
DX: B37.0 Candidal stomatitis (principal); E11.9 Type 2 diabetes mellitus without complications

== ENCOUNTER → 2025-01-18 13:17 | Outpatient (BNVA) | payer OTHER, SELFPAY | PROVIDERS: PCP Internal Medicine; Visit Provider Internal Medicine | DX: E11.9 Type 2 diabetes mellitus without complications (principal); B37.0 Candidal stomatitis; B35.1 Tinea unguium; Z28.21 Immunization not carried out because of patient refusal | CPT/HCPCS: 83036; 99212 ==